=== PATIENT | female | born 1970 | race Caucasian/White ===

== ENCOUNTER → 2017-01-23 | Outpatient (CLI) | payer MEDICARE, OTHER ==
[2017-01-23 11:22] LABS: CH 26.8; HCT 34.3 % (34.0-46.0); HDW 2.72; HGB 10.7 gm/dL (11.4-16.0); Hypochromasia Slight; MCH 27.1 pg (25.0-35.0); MCHC 31.3 g/dL (31.0-37.0); MCV 86.6 fL (80.0-100.0); Mean Platelet Volume 7.6; RBC 3.96 m/uL (3.80-5.40); RDW 13.8 % (11.5-15.5); WBC 9.9 k/uL (3.8-10.6)
[2017-01-23 11:33] LABS: Amorphous Sediment,Urine Rare /hpf; Appearance,Urine Cloudy (Clear); Bacteria,Urine Rare /hpf; Bilirubin,Urine Negative (Negative); Glucose,Urine (UA) Negative (Negative); Ketones,Urine Negative (Negative); Leukocyte Esterase,Urine Negative (Negative); Nitrite,Urine Negative (Negative); PH, Urine 5.5 (5.0-8.0); Particle Count 6182; Protein,Urine Negative (Negative); RBC,Urine 1 /hpf (0-5); Specific Gravity,Urine 1.011 (1.001-1.035); Squamous Epithelial Cell,Urine 8 /hpf (0-4); UA Billing (MACRO vs. MICRO) MICRO; Urobilinogen,Urine <2.0 mg/dL (<2.0); WBC,Urine 3 /hpf (0-5)
[2017-01-23 11:55] LABS: Hemoglobin A1C 7.5 % (4.2-6.1)
[2017-01-23 12:05] LABS: ALT 30 U/L (9-52); AST 18 U/L (14-36); Alkaline Phosphatase 99 U/L (38-126); Anion Gap 9 mmol/L; Blood Urea Nitrogen 23 mg/dL (7-17); Carbon Dioxide 25 mmol/L (22-30); Chloride 108 mmol/L (98-107); Cholesterol 123 mg/dL (<200); Glucose 126 mg/dL (74-99); HDL Cholesterol 39 mg/dL (40-60); Non-African American GFR(MDRD) 23 (>60 ml/min/1.73 sqM); Potassium 4.7 mmol/L (3.5-5.1); Sodium 142 mmol/L (137-145); Total Bilirubin 0.6 mg/dL (0.2-1.3); Total Protein 6.5 g/dL (6.3-8.2); Triglycerides 203 mg/dL (<150)
== END | disposition home or self-care (01) ==
LOC: LABWHC1 10:57
PROVIDERS: ATTEND Family Medicine
DX: Z00.00 Encounter for general adult medical examination without abnormal findings (principal); E11.65 Type 2 diabetes mellitus with hyperglycemia; R89.9 Unspecified abnormal finding in specimens from other organs, systems and tissues
CPT/HCPCS: 36415; 80053; 80061; 81001; 82043; 82306; 83036; 84439; 84443; 84481; 85027

== ENCOUNTER 2017-09-13 10:27 | Inpatient (IN) | payer MEDICARE, OTHER ==
[2017-09-13] MEDS ORDERED: MORPHINE SULFATE 2 MG/ML SYRINGE IVP ONE (10:47)
[2017-09-13] MEDS ORDERED: ONDANSETRON 4 MG/2 ML VIAL IVP STA (10:47)
[2017-09-13] MEDS ORDERED: ACETAMINOPHEN IV (For NPO) 1,000 MG in EMPTY BAG 1 BAG IVPB STA (10:48)
--- NOTE | 2017-09-13 10:51 | ED ---
Abdominal Pain HPI - General Chief Complaint: Abdominal Pain Stated Complaint: Chest/breast pain Time Seen by Provider: 09/13/17 10:39 Source: patient, family Mode of arrival: wheelchair Limitations: no limitations - History of Present Illness Initial Comments: This is a 47-year-old female who presents emergency department for epigastric pain. She states the pain is been there for the last couple of days. She states it started and she thought that she was hungry so she ate some food. She states that the pain then went away however then came back the next day. She states the next day she was unable to eat anything except for some broth or she feels that the pain is epigastric in nature and radiates to bilateral upper quadrants and into her back. She states that she also feels nauseated and vomited once. She denies any diarrhea or constipation. No dysuria or hematuria. She states that she has not had any fevers or chills at home that she knows of. She states that she does not have any sick contacts. No cough or shortness of breath. She denies any other complaints. - Related Data Home Medications Medication Instructions Recorded Confirmed Atorvastatin [Lipitor] 20 mg PO DAILY 01/11/15 09/13/17 Metoprolol Tartrate [Lopressor] 100 mg PO BID 01/11/15 09/13/17 Insulin Aspart [NovoLOG Flexpen] See Protocol SQ ACHS 09/13/17 09/13/17 Lisinopril-Hctz 10-12.5 mg 1 tab PO BID 09/13/17 09/13/17 [Zestoretic 10-12.5] Zolpidem [Ambien] 10 mg PO HS PRN 09/13/17 09/13/17 Allergies Allergy/AdvReac Type Severity Reaction Status Date / Time No Known Allergies Allergy Verified 09/13/17 11:18 Review of Systems ROS Statement: Those systems with pertinent positive or pertinent negative responses have been documented in the HPI. ROS Other: All systems not noted in ROS Statement are negative. Past Medical History Past Medical History: Diabetes Mellitus, Eye Disorder, Hyperlipidemia, Hypertension Additional Past Medical History / Comment(s): BLIND-D/T DM, HAS ONLY 2 % VISION RT EYE-CAN SEE SOME SHAPES AND LIGHT & DARK. HX ABN CERVICAL CELLS. History of Any Multi-Drug Resistant Organisms: None Reported Past Surgical History: Adenoidectomy, Cholecystectomy, Tonsillectomy Additional Past Surgical History / Comment(s): TUMOR & LT OVARY REMOVED. COLD KNIFE CONE Past Anesthesia/Blood Transfusion Reactions: No Reported Reaction Past Psychological History: No Psychological Hx Reported Smoking Status: Current every day smoker Past Alcohol Use History: None Reported Past Drug Use History: None Reported - Past Family History Father Family Medical History: Diabetes Mellitus Mother Family Medical History: Asthma, Pneumonia Additional Family Medical History / Comment(s): "BREATHING PROBLEMS" General Exam - General Exam Comments Initial Comments: Constitutional: Awake alert Appears comfortable Head: Normocephalic atraumatic Eyes: no conjunctival injection No scleral icterus EOMI Neck: No JVD Supple Heart: Regular rate rhythm normal S1-S2 no murmurs Lungs: Clear to auscultation bilaterally No wheezing No rales Abdomen: Soft nondistended tender to palpation epigastrically with minimal voluntary guarding, there is tenderness to palpation in the right upper quadrant and left upper quadrant however greater in the right, no tenderness in lower quadrants. Extremities: Non edematous DP pulses intact Radial pulses intact Neuro: A&Ox3 No focal neurologic deficits Psych: Appropriate mood and affect Limitations: no limitations Course Vital Signs 09/13/17 09/13/17 10:36 12:58 Temperature 100.5 F H Pulse Rate 114 H 92 Respiratory 22 16 Rate Blood Pressure 150/82 144/65 O2 Sat by Pulse 100 96 Oximetry - Reevaluation(s) Reevaluation #1: 09/13/17 11:25 EKG showing normal sinus rhythm with a rate of 91. There is normal ST segment changes or T-wave inversions. QTC is 445. Other intervals normal. No ectopy. Medical Decision Making - Medical Decision Making Is a 47-year-old female who presents emergency department for epigastric pain. She was found to have pancreatitis on computed tomography scan and lab work. She did have a mild fever on arrival however this is consistent with pancreatitis. Do not feel that she has infected pancreatitis. We'll hold off on antibiotics and Dr. Tamez agrees with this. Patient was started on fluids and nothing by mouth. GI was consulted. Patient was updated with the plan and agrees. - Lab Data Result diagrams: 09/13/17 11:15 09/13/17 11:15 Lab Results 09/13/17 09/13/17 09/13/17 Range/Units 11:00 11:00 11:15 WBC 15.2 H (3.8-10.6) k/uL RBC 3.74 L (3.80-5.40) m/uL Hgb 10.5 L (11.4-16.0) gm/dL Hct 32.9 L (34.0-46.0) % MCV 88.2 (80.0-100.0) fL MCH 28.2 (25.0-35.0) pg MCHC 31.9 (31.0-37.0) g/dL RDW 15.3 (11.5-15.5) % Plt Count 288 (150-450) k/uL Neutrophils % 90 % Lymphocytes % 5 % Monocytes % 4 % Eosinophils % 0 % Basophils % 0 % Neutrophils # 13.7 H (1.3-7.7) k/uL Lymphocytes # 0.7 L (1.0-4.8) k/uL Monocytes # 0.7 (0-1.0) k/uL Eosinophils # 0.1 (0-0.7) k/uL Basophils # 0.0 (0-0.2) k/uL PT (9.0-12.0) sec INR (<1.2) APTT (22.0-30.0) sec Sodium (137-145) mmol/L Potassium (3.5-5.1) mmol/L Chloride (98-107) mmol/L Carbon Dioxide (22-30) mmol/L Anion Gap mmol/L BUN (7-17) mg/dL Creatinine (0.52-1.04) mg/dL Est GFR (MDRD) Af Amer (>60 ml/min/1.73 sqM) Est GFR (MDRD) Non-Af (>60 ml/min/1.73 sqM) Glucose (74-99) mg/dL Plasma Lactic Acid Mike (0.7-2.0) mmol/L Calcium (8.4-10.2) mg/dL Total Bilirubin (0.2-1.3) mg/dL AST (14-36) U/L ALT (9-52) U/L Alkaline Phosphatase (38-126) U/L Total Protein (6.3-8.2) g/dL Albumin (3.5-5.0) g/dL Amylase (30-110) U/L Lipase (23-300) U/L Urine Color Yellow Urine Appearance Cloudy H (Clear) Urine pH 6.0 (5.0-8.0) Ur Specific [place] 1.017 (1.001-1.035) Urine Protein 1+ H (Negative) Urine Glucose (UA) 4+ H (Negative) Urine Ketones Negative (Negative) Urine Blood Trace H (Negative) Urine Nitrite Negative (Negative) Urine Bilirubin Negative (Negative) Urine Urobilinogen <2.0 (<2.0) mg/dL Ur Leukocyte Esterase Negative (Negative) Urine RBC 4 (0-5) /hpf Urine WBC 4 (0-5) /hpf Ur Squamous Epith Cells 35 H (0-4) /hpf Urine Mucus Rare H (None) /hpf Urine HCG, Qual Not Detected (Not Detectd) 09/13/17 09/13/17 09/13/17 Range/Units 11:15 11:15 11:15 WBC (3.8-10.6) k/uL RBC (3.80-5.40) m/uL Hgb (11.4-16.0) gm/dL Hct (34.0-46.0) % MCV (80.0-100.0) fL MCH (25.0-35.0) pg MCHC (31.0-37.0) g/dL RDW (11.5-15.5) % Plt Count (150-450) k/uL Neutrophils % % Lymphocytes % % Monocytes % % Eosinophils % % Basophils % % Neutrophils # (1.3-7.7) k/uL Lymphocytes # (1.0-4.8) k/uL Monocytes # (0-1.0) k/uL Eosinophils # (0-0.7) k/uL Basophils # (0-0.2) k/uL PT 10.3 (9.0-12.0) sec INR 1.0 (<1.2) APTT 26.7 (22.0-30.0) sec Sodium 135 L (137-145) mmol/L Potassium 4.0 (3.5-5.1) mmol/L Chloride 104 (98-107) mmol/L Carbon Dioxide 25 (22-30) mmol/L Anion Gap 6 mmol/L BUN 17 (7-17) mg/dL Creatinine 1.80 H (0.52-1.04) mg/dL Est GFR (MDRD) Af Amer 37 (>60 ml/min/1.73 sqM) Est GFR (MDRD) Non-Af 30 (>60 ml/min/1.73 sqM) Glucose 312 H (74-99) mg/dL Plasma Lactic Acid Mike (0.7-2.0) mmol/L Calcium 8.5 (8.4-10.2) mg/dL Total Bilirubin 0.8 (0.2-1.3) mg/dL AST 12 L (14-36) U/L ALT 20 (9-52) U/L Alkaline Phosphatase 82 (38-126) U/L Total Protein 5.5 L (6.3-8.2) g/dL Albumin 2.8 L (3.5-5.0) g/dL Amylase 543 H* (30-110) U/L Lipase 3724 H (23-300) U/L Urine Color Urine Appearance (Clear) Urine pH (5.0-8.0) Ur Specific [place] (1.001-1.035) Urine Protein (Negative) Urine Glucose (UA) (Negative) Urine Ketones (Negative) Urine Blood (Negative) Urine Nitrite (Negative) Urine Bilirubin (Negative) Urine Urobilinogen (<2.0) mg/dL Ur Leukocyte Esterase (Negative) Urine RBC (0-5) /hpf Urine WBC (0-5) /hpf Ur Squamous Epith Cells (0-4) /hpf Urine Mucus (None) /hpf Urine HCG, Qual (Not Detectd) 09/13/17 Range/Units 11:20 WBC (3.8-10.6) k/uL RBC (3.80-5.40) m/uL Hgb (11.4-16.0) gm/dL Hct (34.0-46.0) % MCV (80.0-100.0) fL MCH (25.0-35.0) pg MCHC (31.0-37.0) g/dL RDW (11.5-15.5) % Plt Count (150-450) k/uL Neutrophils % % Lymphocytes % % Monocytes % % Eosinophils % % Basophils % % Neutrophils # (1.3-7.7) k/uL Lymphocytes # (1.0-4.8) k/uL Monocytes # (0-1.0) k/uL Eosinophils # (0-0.7) k/uL Basophils # (0-0.2) k/uL PT (9.0-12.0) sec INR (<1.2) APTT (22.0-30.0) sec Sodium (137-145) mmol/L Potassium (3.5-5.1) mmol/L Chloride (98-107) mmol/L Carbon Dioxide (22-30) mmol/L Anion Gap mmol/L BUN (7-17) mg/dL Creatinine (0.52-1.04) mg/dL Est GFR (MDRD) Af Amer (>60 ml/min/1.73 sqM) Est GFR (MDRD) Non-Af (>60 ml/min/1.73 sqM) Glucose (74-99) mg/dL Plasma Lactic Acid Mike 1.8 (0.7-2.0) mmol/L Calcium (8.4-10.2) mg/dL Total Bilirubin (0.2-1.3) mg/dL AST (14-36) U/L ALT (9-52) U/L Alkaline Phosphatase (38-126) U/L Total Protein (6.3-8.2) g/dL Albumin (3.5-5.0) g/dL Amylase (30-110) U/L Lipase (23-300) U/L Urine Color Urine Appearance (Clear) Urine pH (5.0-8.0) Ur Specific [place] (1.001-1.035) Urine Protein (Negative) Urine Glucose (UA) (Negative) Urine Ketones (Negative) Urine Blood (Negative) Urine Nitrite (Negative) Urine Bilirubin (Negative) Urine Urobilinogen (<2.0) mg/dL Ur Leukocyte Esterase (Negative) Urine RBC (0-5) /hpf Urine WBC (0-5) /hpf Ur Squamous Epith Cells (0-4) /hpf Urine Mucus (None) /hpf Urine HCG, Qual (Not Detectd) Disposition Clinical Impression: Pancreatitis Disposition: ADMITTED IP TO THIS [facility] Condition: Stable
[2017-09-13 11:31] LABS: Basophils % (A) 0 %; Eosinophils # (A) 0.1 k/uL (0-0.7); Eosinophils % (A) 0 %; HCT 32.9 % (34.0-46.0); HGB 10.5 gm/dL (11.4-16.0); Lymphocytes # (A) 0.7 k/uL (1.0-4.8); Lymphocytes % (A) 5 %; MCH 28.2 pg (25.0-35.0); MCHC 31.9 g/dL (31.0-37.0); MCV 88.2 fL (80.0-100.0); Mean Platelet Volume 7.7; Monocytes # (A) 0.7 k/uL (0-1.0); Monocytes % (A) 4 %; Neutrophils # (A) 13.7 k/uL (1.3-7.7); Neutrophils % (A) 90 %; Platelet Count 288 k/uL (150-450); RBC 3.74 m/uL (3.80-5.40); RDW 15.3 % (11.5-15.5); WBC 15.2 k/uL (3.8-10.6)
[2017-09-13] MEDS: SODIUM CHLORIDE 0.9% 500 ML IV SCH ×2 (11:36→12:54)
[2017-09-13 11:39] LABS: Albumin 2.8 g/dL (3.5-5.0); Calcium 8.5 mg/dL (8.4-10.2); Total Bilirubin 0.8 mg/dL (0.2-1.3); Total Protein 5.5 g/dL (6.3-8.2)
[2017-09-13 11:51] LABS: Appearance,Urine Cloudy (Clear); Bilirubin,Urine Negative (Negative); Blood,Urine Trace (Negative); Color,Urine Yellow; Glucose,Urine (UA) 4+ (Negative); Ketones,Urine Negative (Negative); Leukocyte Esterase,Urine Negative (Negative); Mucus,Urine Rare /hpf; Nitrite,Urine Negative (Negative); Protein,Urine 1+ (Negative); RBC,Urine 4 /hpf (0-5); Specific Gravity,Urine 1.017 (1.001-1.035); Squamous Epithelial Cell,Urine 35 /hpf (0-4); Urobilinogen,Urine <2.0 mg/dL (<2.0); WBC,Urine 4 /hpf (0-5)
--- NOTE | 2017-09-13 12:13 | US ---
EXAMINATION TYPE: US abdomen limited DATE OF EXAM: 09/13/2017 COMPARISON: NONE CLINICAL HISTORY: Epigastric, RUQ pain, Eval pancreas and GB. EXAM MEASUREMENTS: Liver Length: 16.6 cm Gallbladder Wall: Surgically absent CBD: 0.7 cm Right Kidney: 11.0 x 4.8 x 4.9 cm Gross morbid obesity. Pancreas: Obscured by bowel gas Liver: Increased attenuation, decreased visualization of vessels suggestive of fatty infiltrate, upp er limits of normal in size, somewhat limited visualization Gallbladder: Surgically absent Evidence for sonographic Pisano's sign: no CBD: wnl Right Kidney: No hydronephrosis or masses seen, limited visualization There is no ascites. IMPRESSION: Postop changes. Correlate for possible hepatic steatosis, limited exam.
[2017-09-13 12:19] LABS: Partial Thromboplastin Time 26.7 sec (22.0-30.0); Prothrombin Time 10.3 sec (9.0-12.0)
[2017-09-13] MEDS ORDERED: RX INFO: IV CONTRAST WAS GIVEN 1 EACH MISC MISCELLANE PRN (12:33)
--- NOTE | 2017-09-13 13:10 | CT ---
EXAMINATION TYPE: CT abdomen pelvis wo con DATE OF EXAM: 09/13/2017 COMPARISON: Correlation ultrasound same day HISTORY: 47-year-old female complains of bilateral upper quadrant pain, nausea, and vomiting. CT DLP: 1240 mGycm. Automated exposure control for dose reduction was used. TECHNIQUE: Contiguous axial scanning of the abdomen and pelvis without IV contrast. Coronal and sagit chava reconstructions performed. FINDINGS: Heart normal size without pericardial effusion. Strandy left basilar atelectasis. No pleural effusion . Noncontrast appearance of the liver, right adrenal gland, and spleen appear within normal limits. Mil d bilateral perinephric stranding likely senescent change. There is moderate to severe peripancreatic fat stranding and edema tracking within the retroperitoneu m. Fat stranding extends anteriorly into the mesentery. Low density 2.1 cm nodule left adrenal gland with attenuation of -6.8 Hounsfield units. Mild atherosclerotic calcifications in the abdominal aorta. No dilated small bowel, free fluid, or free air. No mesenteric or retroperitoneal lymphadenopathy see n. Scattered mild stool. No pericolonic inflammatory change. Bladder partially distended. Uterus and ovaries are visualized. There is a 2.5 cm dominant follicle o r functional cyst in the left ovary. Left ovary is enlarged measuring 5.1 x 3.9 x 5.0 cm for a volume of 49 mL. Pelvic phlebolith. No abnormal fluid collection in the pelvis. Bones: Degenerative disc disease especially L3-L4 and L5-S1. No osseous destructive process. IMPRESSION: 1. Acute pancreatitis. There is moderate to severe surrounding inflammation. No peripancreatic fluid collection seen at this time. 2. Incidental 2.1 cm lipid rich left adrenal adenoma. 3. The left ovary is excessively enlarged with a volume of 49 mL. Pelvic ultrasound can further eval uate. If there is left pelvic pain, Doppler assessment can be added to the ultrasound.
[2017-09-13 13:13] LABS: Amylase 543 U/L (30-110)
[2017-09-13 13:14] LABS: Lipase 3724 U/L (23-300)
[2017-09-13] MEDS ORDERED: ONDANSETRON 4 MG/2 ML VIAL IVP PRN (13:33)
[2017-09-13] MEDS ORDERED: NALOXONE 0.4 MG/ML 1 ML VIAL IV PRN ×2 (13:33→22:23)
[2017-09-13] MEDS ORDERED: ZOLPIDEM 10 MG TAB PO PRN (13:35)
[2017-09-13] MEDS: SODIUM CHLORIDE 0.9% 1,000 ML IV SCH ×3 (14:07→23:18)
[2017-09-13 17:14] LABS: Glucose,Whole Blood 212 mg/dL (75-99)
[2017-09-13] MEDS: MORPHINE SULFATE 2 MG/ML SYRINGE IV PRN ×2 (17:19→23:40)
[2017-09-13] MEDS: LISINOPRIL-HCTZ 10-12.5 MG 1 EACH TAB PO SCH (20:08)
[2017-09-13] MEDS: METOPROLOL TARTRATE 50 MG TAB PO SCH (20:36)
[2017-09-13 20:49] LABS: Glucose,Whole Blood 205 mg/dL (75-99)
[2017-09-13] MEDS ORDERED: MAGNESIUM HYDROXIDE 2,400 MG/10 ML CUP PO PRN (22:23)
[2017-09-13] MEDS ORDERED: MELATONIN 3 MG TABLET PO PRN (22:23)
[2017-09-13] MEDS ORDERED: traMADol 50 MG TAB PO PRN (22:23)
[2017-09-13] MEDS ORDERED: LACTULOSE 20 GM/30 ML CUP PO PRN (22:23)
--- NOTE | 2017-09-13 22:50 | HP ---
HISTORY AND PHYSICAL ADDENDUM TO HISTORY AND PHYSICAL: DATE OF SERVICE: 09/13/2017 Smoking cessation counseling was done with the patient. Patient is keen to stop and will be given a nicotine patch. More than 3 minutes was spent in smoking cessation counseling. MMODL / IJN: [id number] /
--- NOTE | 2017-09-13 23:05 | HP ---
HISTORY AND PHYSICAL DATE OF ADMISSION: 09/13/2017. PRESENTING COMPLAINT: Abdominal pain. HISTORY OF PRESENTING COMPLAINT: This is a 47-year-old pleasant patient of Dr. Gregg. Chronic stable medical conditions include diabetes, hyperlipidemia, hypertension, peripheral neuropathy, right foot ulcer, and patient is nearly blind. For 3 days she has been having increasing epigastric pain, nausea, vomiting, low-grade fever, and decided to come in. The patient was found to have acute pancreatitis in the ER, put on IV fluids, made n.p.o. REVIEW OF SYSTEMS: CONSTITUTIONAL: Tired. Low-grade fever. HEENT: None. RESPIRATORY: None. CARDIOVASCULAR: None. GASTROINTESTINAL: As above. GENITOURINARY: None. MUSCULOSKELETAL: None. DERMATOLOGICAL: Right foot plantar ulcer. HEMATOLOGICAL: None. LYMPHATICS: None. PSYCHIATRY: None. NEUROLOGICAL: Blind numbness and tingling in both feet. Very diminished sensation. PAST MEDICAL HISTORY: 1. Diabetes mellitus. 2. Hypertension. 3. Hyperlipidemia. 4. 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 5. Right foot ulcer. 6. Peripheral neuropathy. PAST SURGICAL HISTORY: 1. Adenoidectomy. 2. Cholecystectomy. 3. Tonsillectomy. 4. Cold knife cone for abnormal cervical cells. SOCIAL HISTORY: Lives with her . Has a talking glucometer, talking scanner and talking cell phone. Does her own medication; feels them by size. Smokes. Used to smoke a pack and a half a day, now down to half a pack a day for 32 years. No alcohol. FAMILY HISTORY: Diabetes. HOME MEDICATIONS: 1. Ambien 10 mg at bedtime p.r.n. 2. Lopressor 100 mg p.o. b.i.d. 3. Zestoretic 05/24.5 one tablet p.o. b.i.d. 4. NovoLog FlexPen. 5. Lipitor 20 mg p.o. daily. ALLERGIES: NONE. PHYSICAL EXAMINATION: Temperature 100.6, pulse 90, respiration 14, blood pressure 173/93, pulse ox 98% on room air. Previous blood pressure 140/73. GENERAL APPEARANCE: Well built. BMI of 41.8. Lying in bed. Tired-appearing. EYES: Pupils equal. Conjunctivae normal. HEENT: Oral cavity dry mucous membrane. NECK: JVD not raised. Mass not palpable. RESPIRATORY: Effort normal. LUNGS: Diminished breath sounds. CARDIOVASCULAR: First and second sounds normal. No edema. ABDOMEN: Soft. Epigastric tenderness. No guarding or rigidity. Liver and spleen not palpable. LYMPHATIC: No lymph node palpable in neck or axillae. PSYCHIATRY: Alert and oriented x3. Mood and affect normal. NEUROLOGICAL: Pupils equal. Cranial nerves grossly intact. Decreased sensation in the feet. DERMATOLOGICAL: Patient has a callus on the ball of the right big toe on the plantar aspect with a central opening. No tenderness. I do not see any drainage. Also it may be noted that patient's eyesight is very poor. INVESTIGATIONS: White count 15.2, hemoglobin 10.5. Potassium 4, BUN 17, creatinine 1.80. The patient's creatinine was 2.30 back in January of last year. The patient's amylase is 543, lipase 3724. ASSESSMENT: 1. Acute idiopathic pancreatitis. 2. Diabetes mellitus, type 2, chronically on insulin, causing severe peripheral neuropathy and diabetic retinopathy. 3. Hyperlipidemia. 4. Essential hypertension. 5. Right foot plantar callus with ulcer; does not appear to be infected at the present time. 6. Morbid obesity with a body mass index of 41.8. 7. Chronic nicotine dependence. Patient is a cigarette smoker. 8. Chronic kidney disease, stage III, from diabetic nephropathy. PLAN: Patient has been made n.p.o. except for ice chips. Getting IV fluids. Amylase and lipase will be closely followed. The patient was counseled against smoking and she understands the importance, will be given a nicotine patch. Home medications will be resumed. Accu-Cheks will be followed. Will have ID look at the patient's foot ulcer. The patient has got good peripheral pulses. The patient should see a dietitian for weight loss measures. MMODL / IJN: [id number] /
[2017-09-13] MEDS: NICOTINE 14MG/24HR PATCH TRANSDERM SCH (23:19)
[2017-09-13] MEDS: LACTATED RINGERS 1,000 ML IV SCH (23:23)
[2017-09-13] MEDS: INSULIN ASPART 100 UNIT/ML 1 ML 10 ML VIAL SQ SCH (23:25)
[2017-09-14] MEDS ORDERED: VANCOMYCIN IV PER PHARMACY 1 EACH MISC MISCELLANE PRN (04:30)
[2017-09-14] MEDS: ACETAMINOPHEN TAB 325 MG TAB PO PRN ×2 (04:43→16:33)
[2017-09-14] MEDS: LACTATED RINGERS 1,000 ML IV SCH ×2 (05:08→14:15)
[2017-09-14] MEDS ORDERED: VANCOMYCIN 2,000 MG in SODIUM CHLORIDE 0.9% 500 ML IVPB SCH ×2 (06:00→21:00)
[2017-09-14] MEDS ORDERED: INSULIN ASPART 100 UNIT/ML 1 ML 10 ML VIAL SQ SCH (07:30)
[2017-09-14] MEDS: INSULIN ASPART 100 UNIT/ML 1 ML 10 ML VIAL SQ SCH ×5 (07:37→22:19)
[2017-09-14 07:52] LABS: Glucose,Whole Blood 135 mg/dL (75-99)
[2017-09-14 07:59] LABS: Basophils % (A) 0 %; Eosinophils # (A) 0.1 k/uL (0-0.7); Eosinophils % (A) 0 %; HCT 31.6 % (34.0-46.0); HGB 10.2 gm/dL (11.4-16.0); Lymphocytes # (A) 1.1 k/uL (1.0-4.8); Lymphocytes % (A) 5 %; MCH 28.5 pg (25.0-35.0); MCHC 32.2 g/dL (31.0-37.0); MCV 88.7 fL (80.0-100.0); Mean Platelet Volume 7.4; Monocytes % (A) 5 %; Neutrophils # (A) 20.1 k/uL (1.3-7.7); Neutrophils % (A) 89 %; Platelet Count 320 k/uL (150-450); RBC 3.56 m/uL (3.80-5.40); RDW 14.6 % (11.5-15.5); WBC 22.5 k/uL (3.8-10.6)
[2017-09-14 08:17] LABS: Calcium 7.8 mg/dL (8.4-10.2); Potassium 3.7 mmol/L (3.5-5.1)
[2017-09-14] MEDS: NICOTINE 14MG/24HR PATCH TRANSDERM SCH (08:53)
[2017-09-14] MEDS: LISINOPRIL-HCTZ 10-12.5 MG 1 EACH TAB PO SCH ×2 (08:54→21:46)
[2017-09-14] MEDS: METOPROLOL TARTRATE 50 MG TAB PO SCH ×2 (08:54→21:46)
[2017-09-14] MEDS: ATORVASTATIN 20 MG TAB PO SCH (08:54)
[2017-09-14] MEDS: MORPHINE SULFATE 2 MG/ML SYRINGE IV PRN ×2 (10:01→21:24)
[2017-09-14] MEDS ORDERED: SODIUM CHLORIDE 0.9% 500 ML IV ONE (10:55)
--- NOTE | 2017-09-14 11:02 | P.CONS ---
History of Present Illness - Reason for Consult Consult date: 09/14/17 Pancreatitis Requesting physician: Domo Tamez - History of Present Illness 47-year-old female with a history of diabetes mellitus, peripheral neuropathy, obesity BMI 41, cholelithiasis status post cholecystectomy several years ago, hyperlipidemia, hypertension, and blindness presents with acute abdominal pain that started Sunday. Pain came on suddenly very sharp in the upper abdomen associated with fever. T-max 101.1. Preliminary blood cultures gram-positive cocci in groups. Additionally she has a right callused foot ulcer with intermittent drainage that developed about a month ago. Receiving intravenous vancomycin. Admission amylase lipase elevated 543 and 3724 respectively. Current amylase is 228. Lipase 631. BUN 17. Creatinine 1.8. Total bilirubin 0.8. AST 12. ALT 20. Alk phos 82. Admission white count 15.2 increase to 22.5 today. He will in 10.2. Platelet 320. Glucose 312 presently 138. No history of pancreatitis. No history of alcoholism. CT abdomen and pelvis without contrast moderate to severe. Pancreatic fat stranding and edema tracking within the peritoneum. No fluid collection seen. Review of Systems Constitutional: Denies fever, chills, sweats, weight gain, or loss. HEENT: Negative for migraines, blindness, earaches, drainage, tinnitus, oral mucosal lesions, dysphagia, or odynophagia. CARDIAC: Negative for chest pain, arrhythmias, or palpitation. RESPIRATORY: Hyperlipidemia. Hypertension. Negative for shortness of breath, hemoptysis, cough, or sputum production. GI: See HPI for pertinent findings. : Negative for hematuria, urgency, frequency, polyuria, or dysuria. GYNc: Denies possibility of . Negative vaginal discharge. MUSCULOSKELETAL: Negative for muscle aches, swelling, arthritis, and arthralgias. NEUROLOGIC: Negative for stroke or TIA. ENDOCRINE: Diabetes mellitus. Peripheral neuropathy. Negative for thyroid problems. SKIN: Negative for rash or itching. PSYCHIATRIC: Negative history for depression and anxiety Past Medical History Past Medical History: Diabetes Mellitus, Eye Disorder, Hyperlipidemia, Hypertension Additional Past Medical History / Comment(s): IDDM type II, blindness d/t diabetes with R eye having only 2% vision, current sore on bottom R foot, bilateral neuropathy hands/feet. History of Any Multi-Drug Resistant Organisms: None Reported Past Surgical History: Adenoidectomy, Cholecystectomy, Tonsillectomy Additional Past Surgical History / Comment(s): BENIGN TUMOR & LT OVARY REMOVED, 01/19/15 COLD KNIFE CONE FOR ABNORMAL CERVICAL CELLS, COLONOSCOPY. Past Anesthesia/Blood Transfusion Reactions: No Reported Reaction Smoking Status: Current every day smoker - Past Family History Father Family Medical History: Diabetes Mellitus Mother Family Medical History: Asthma, Pneumonia Additional Family Medical History / Comment(s): "BREATHING PROBLEMS" Medications and Allergies Home Medications Medication Instructions Recorded Confirmed Type Atorvastatin [Lipitor] 20 mg PO DAILY 01/11/15 09/13/17 History Metoprolol Tartrate [Lopressor] 100 mg PO BID 01/11/15 09/13/17 History Insulin Aspart [NovoLOG Flexpen] See Protocol SQ ACHS 09/13/17 09/13/17 History Lisinopril-Hctz 10-12.5 mg 1 tab PO BID 09/13/17 09/13/17 History [Zestoretic 10-12.5] Zolpidem [Ambien] 10 mg PO HS PRN 09/13/17 09/13/17 History Allergies Allergy/AdvReac Type Severity Reaction Status Date / Time No Known Allergies Allergy Verified 09/13/17 11:18 Physical Exam Vitals: Vital Signs Temp Pulse Pulse Pulse Resp BP BP 09/14/17 07:00 99.8 F H 92 18 136/61 09/14/17 04:24 101.1 F H 91 12 126/70 09/13/17 22:00 100.6 F H 92 14 173/93 09/13/17 19:41 70 14 09/13/17 15:00 99.8 F H 87 16 151/73 09/13/17 14:08 87 16 148/66 09/13/17 12:58 92 16 144/65 Pulse Ox 09/14/17 07:00 92 L 09/14/17 04:24 93 L 09/13/17 22:00 98 09/13/17 19:41 09/13/17 15:00 99 09/13/17 14:08 96 09/13/17 12:58 96 Intake and Output 09/13/17 09/14/17 09/14/17 22:59 06:59 14:59 Other: Voiding Method Toilet # Voids 1 1 Weight 124.738 kg General appearance: The patient is alert, oriented, in no acute distress. HET: Head is normocephalic and atraumatic. Pupils are equal and reactive. Oropharynx is clear without lesions. Neck: Supple without lymphadenopathy. Trachea midline. Heart: S1 S2. Regular rate and rhythm. Lungs: No crackles or wheezes are heard. Abdomen: Soft, tenderness to the bilateral upper abdomen, nondistended with bowel sounds. No peritoneal signs. No palpable organomegaly or masses. Extremities: Right foot callus ulcer to the ball of foot proximally 2 cm in diameter without active drainage center of callused ulcer is opened. Normal skin color and turgor. No cyanosis, rash, ulceration, clubbing, or edema. Radial and pedal pulses are 2/4 bilaterally. Neurological: No focal deficits. Strength and sensation are grossly intact. Results CBC & Chem 7: 09/14/17 07:45 09/14/17 07:45 Labs: Abnormal Lab Results - Last 24 Hours (Table) 09/13/17 09/13/17 09/13/17 Range/Units 11:00 11:15 11:15 WBC 15.2 H (3.8-10.6) k/uL RBC 3.74 L (3.80-5.40) m/uL Hgb 10.5 L (11.4-16.0) gm/dL Hct 32.9 L (34.0-46.0) % Neutrophils # 13.7 H (1.3-7.7) k/uL Lymphocytes # 0.7 L (1.0-4.8) k/uL Sodium 135 L (137-145) mmol/L Carbon Dioxide (22-30) mmol/L Creatinine 1.80 H (0.52-1.04) mg/dL Glucose 312 H (74-99) mg/dL POC Glucose (mg/dL) (75-99) mg/dL Calcium (8.4-10.2) mg/dL AST 12 L (14-36) U/L Total Protein 5.5 L (6.3-8.2) g/dL Albumin 2.8 L (3.5-5.0) g/dL Amylase (30-110) U/L Lipase (23-300) U/L Urine Appearance Cloudy H (Clear) Urine Protein 1+ H (Negative) Urine Glucose (UA) 4+ H (Negative) Urine Blood Trace H (Negative) Ur Squamous Epith Cells 35 H (0-4) /hpf Urine Mucus Rare H (None) /hpf 09/13/17 09/13/17 09/13/17 Range/Units 11:15 16:56 20:45 WBC (3.8-10.6) k/uL RBC (3.80-5.40) m/uL Hgb (11.4-16.0) gm/dL Hct (34.0-46.0) % Neutrophils # (1.3-7.7) k/uL Lymphocytes # (1.0-4.8) k/uL Sodium (137-145) mmol/L Carbon Dioxide (22-30) mmol/L Creatinine (0.52-1.04) mg/dL Glucose (74-99) mg/dL POC Glucose (mg/dL) 212 H 205 H (75-99) mg/dL Calcium (8.4-10.2) mg/dL AST (14-36) U/L Total Protein (6.3-8.2) g/dL Albumin (3.5-5.0) g/dL Amylase 543 H* (30-110) U/L Lipase 3724 H (23-300) U/L Urine Appearance (Clear) Urine Protein (Negative) Urine Glucose (UA) (Negative) Urine Blood (Negative) Ur Squamous Epith Cells (0-4) /hpf Urine Mucus (None) /hpf 09/14/17 09/14/17 09/14/17 Range/Units 07:15 07:45 07:45 WBC 22.5 H (3.8-10.6) k/uL RBC 3.56 L (3.80-5.40) m/uL Hgb 10.2 L (11.4-16.0) gm/dL Hct 31.6 L (34.0-46.0) % Neutrophils # 20.1 H (1.3-7.7) k/uL Lymphocytes # (1.0-4.8) k/uL Sodium (137-145) mmol/L Carbon Dioxide 21 L (22-30) mmol/L Creatinine 1.71 H (0.52-1.04) mg/dL Glucose 138 H (74-99) mg/dL POC Glucose (mg/dL) 135 H (75-99) mg/dL Calcium 7.8 L (8.4-10.2) mg/dL AST (14-36) U/L Total Protein (6.3-8.2) g/dL Albumin (3.5-5.0) g/dL Amylase 228 H (30-110) U/L Lipase 631 H (23-300) U/L Urine Appearance (Clear) Urine Protein (Negative) Urine Glucose (UA) (Negative) Urine Blood (Negative) Ur Squamous Epith Cells (0-4) /hpf Urine Mucus (None) /hpf Microbiology - Last 24 Hours (Table) 09/13/17 11:15 Blood Culture Gram Stain - Preliminary Blood 09/13/17 11:15 Blood Culture - Final Blood 09/13/17 11:00 Urine Culture - Preliminary Urine,Voided CT scan - abdomen: report reviewed (Dr. Arreguin) Assessment and Plan (1) Pancreatitis Narrative/Plan: Sepsis multifactorial secondary to acute pancreatitis etiology unclear with history of cholelithiasis and cholecystectomy. Underlying right foot callus ulceration with bacteremia preliminary blood cultures gram-positive cocci groups. Current Visit: Yes Status: Acute Code(s): K85.90 - ACUTE PANCREATITIS WITHOUT NECROSIS OR INFECTION, UNSP SNOMED Code(s): 55676550 (2) Type 2 diabetes mellitus Current Visit: Yes Status: Acute Code(s): E11.9 - TYPE 2 DIABETES MELLITUS WITHOUT COMPLICATIONS SNOMED Code(s): 79611631 (3) Leukocytosis Current Visit: Yes Status: Acute Code(s): D72.829 - ELEVATED WHITE BLOOD CELL COUNT, UNSPECIFIED SNOMED Code(s): 039008810 (4) Fever Current Visit: Yes Status: Acute Code(s): R50.9 - FEVER, UNSPECIFIED SNOMED Code(s): 153556769 (5) Morbid obesity with BMI of 40.0-44.9, adult Current Visit: Yes Status: Acute Code(s): E66.01 - MORBID (SEVERE) OBESITY DUE TO EXCESS CALORIES; Z68.41 - BODY MASS INDEX (BMI) 40.0-44.9, ADULT SNOMED Code(s): 793369646 Plan: 1. IV hydration; will give normal saline 500 mL bolus 1 and increase maintenance fluids normal saline at 1 50 mL an hour. 2. Nothing by mouth except ice chips and popsicles. 3. Continue with intravenous antibiotics and GI prophylaxis. 4. Daily CBC CMP amylase lipase. Will follow closely with you. Thank you for this kind referral and the opportunity to participate in the care of your patient. This consultation was discussed with Dr. Arreguin. The impression and plan of care have been directed as dictated.
[2017-09-14 11:52] VITALS: BMI 41.8
[2017-09-14 12:00] LABS: Glucose,Whole Blood 149 mg/dL (75-99)
[2017-09-14] MEDS: SODIUM CHLORIDE 0.9% 1,000 ML IV SCH ×2 (13:13→17:46)
[2017-09-14] MEDS: PIPERACILLIN-TAZOBACTAM 3.375 GM in DEXTROSE/WATER 1 50ML.BAG IVPB SCH (16:36)
[2017-09-14 17:07] LABS: Hemoglobin A1C 9.7 % (4.0-6.0)
[2017-09-14 17:14] LABS: Glucose,Whole Blood 258 mg/dL (75-99)
[2017-09-14 20:43] LABS: Glucose,Whole Blood 306 mg/dL (75-99)
--- NOTE | 2017-09-14 22:21 | CONS ---
CONSULTATION DATE OF SERVICE: 09/14/2017 REASON FOR CONSULTATION: 1. Right foot wound. 2. Bacteremia. 3. Pancreatitis. HISTORY OF PRESENT ILLNESS: The patient is a 47-year-old female with a past medical history significant for diabetes, presenting to the ER with a chief complaint of epigastric pain. Pain has been going on for the last few days, mostly in the upper abdominal area, described to be more of a sharp pain, almost 7/10-8/10 and no radiation. The patient did have some associated nausea with it and vomited once, did have some chills at home. Denies any close sick contacts. The patient did have ultrasound of the abdomen which shows post cholecystectomy changes. A CT of abdomen/pelvis was subsequently done which did show evidence of acute pancreatitis, but no fluid collection. The patient has been admitted to the hospital. She also noticed to have a wound on her right foot plantar aspect at the base of the first metatarsal. The patient subsequently started running a fever with a fever of 100.5 on admission with 101 early this morning. She did have blood cultures obtained which have now coming back positive with gram-positive cocci in clusters and chains; hence, ID was consulted for further recommendation regarding antibiotic therapy and management of her right foot ulcer. The patient currently denies having any chest pain or shortness of breath or cough and no diarrhea. No urinary symptoms, any burning or frequency. REVIEW OF SYSTEMS: CONSTITUTIONALLY: Positive for weakness and fever. EYES: No complaint. ENT: No complaint. RESPIRATORY: No complaint. CARDIOVASCULAR: No complaint. GENITOURINARY: No complaint. GASTROINTESTINAL: As per HPI. MUSCULOSKELETAL: As per HPI. INTEGUMENTARY: No complaint. PSYCHOLOGICAL: No complaint. ENDOCRINE: No complaint. NEUROLOGIC: No complaint. 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 PAST SURGICAL HISTORY: Cholecystectomy, tonsillectomy, adenoidectomy and benign tumor of left ovary. SOCIAL HISTORY: The patient is a current everyday smoker. No drinking or drug use. FAMILY HISTORY: Father with history of diabetes. Mother with history of asthma. ALLERGIES: No known drug allergies. MEDICATIONS: Include the patient is currently on: 1. Tylenol. 2. Lipitor. 3. Zestoretic. 4. NovoLog. 5. Lactulose and. 6. Milk of magnesia. 7. Melatonin. 8. Lopressor. 9. Morphine sulfate. 10.Narcan. 11.Zofran and. 12.Vancomycin, Pharmacy to dose. 13.Ultram. 14.Ambien. EXAMINATION: Her blood pressure is 134/74 with a pulse of 90, temperature of 100.5, T-max is 101. She is 98% on room air. General description is a middle-aged female up in the bed in no distress. No tachypnea or accessory muscle of respiration use. HEENT shows slight pallor. No scleral icterus. Oral mucous membranes dry. NECK: Trachea central. No thyromegaly. LUNGS: Unlabored breathing. Clear to auscultation anteriorly. No wheeze or crackle. HEART: S1, S2. Regular rate and rhythm. ABDOMEN: Soft, minimally tender in the upper abdomen. No guarding. No rigidity. No organomegaly. EXTREMITIES: No edema of feet. Right foot on the plantar aspect at the base of the first metatarsal head did show the callus with an open wound, but no significant chronic limited changes were noticed or any drainage. NEUROLOGICAL: Patient is awake, alert, oriented x3. Mood and affect normal. LABS: Hemoglobin is 10.2 with white count 8.5. BUN of 18, creatinine is 1.71. Amylase is 228, lipase is 651. Blood cultures with gram-positive cocci in chains and clusters. CT of abdomen and pelvis per report mentioned above. DIAGNOSTIC IMPRESSION AND PLAN: 1. Patient with sepsis. The patient did have fever of 101 degrees Fahrenheit. The patient did have tachycardia, heart rate of 92, elevated white count meeting criteria for systemic inflammatory response syndrome, , now with evidence of gram- positive bacteremia, source likely abdominal. This patient presented with the abdominal pain and vomiting with evidence of acute pancreatitis and it could be likely an enterococcus related to an abdominal source. The patient did have also the right foot plantar ulcer from a callus; however, the wound does not look significantly infected with no significant redness or any swelling. However, this could be the portal of entry for this bacteremia cannot be entirely excluded. 2. Patient does have renal insufficiency and needs to monitor closely during the administration of the antibiotic. PLAN: 1. Blood cultures repeated to make sure there is no evidence of any persistent bacteremia. 2. Will obtain x-rays of the right foot to be sure there is no evidence of any soft tissue swelling or bony changes. 3. Vancomycin, Pharmacy to dose, target of 15 and watching the kidney function very closely to prevent any nephrotoxicity and Zosyn will be added while waiting for the final ID of this pathogen. 4. Will follow up on the clinical condition and culture to further adjust medication if needed. Thank you for this consultation. Will follow the patient along with you. MMODL / IJN: [id number] /
[2017-09-15] MEDS: PIPERACILLIN-TAZOBACTAM 3.375 GM in DEXTROSE/WATER 1 50ML.BAG IVPB SCH ×3 (00:53→17:33)
[2017-09-15] MEDS: SODIUM CHLORIDE 0.9% 1,000 ML IV SCH ×4 (00:53→22:17)
[2017-09-15 07:38] LABS: Glucose,Whole Blood 126 mg/dL (75-99)
[2017-09-15] MEDS: MORPHINE SULFATE 2 MG/ML SYRINGE IV PRN ×2 (07:46→20:49)
--- NOTE | 2017-09-15 08:08 | PN ---
PROGRESS NOTE DATE OF SERVICE: September 14, 2017. PRESENT COMPLAINT: Abdominal pain. INTERVAL HISTORY: This pleasant lady who is blind with diabetes presented with acute pancreatitis had also on the right foot on the plantar aspect with neuropathy, which she has no pain. Abdominal pain is much better. Patient's significant other is in the room. No nausea, no vomiting and no fever. REVIEW OF SYSTEMS: Done for constitutional, cardiovascular, GI, pulmonary, dermatological; relevant findings. There is no discharge from the ulcer. Current medications are reviewed that include vancomycin and Zosyn. PHYSICAL EXAMINATION: On examination temperature 101.4, pulse 91, respirations 12, blood pressure 136/70, pulse ox 93% on room air. General appearance: Sitting at the edge of the bed, comfortable. Eyes: Pupils equal, conjunctivae normal. HEENT normocephalic. Oral cavity dry mucous membranes. Neck JVD not raised. Mass not palpable. Respiratory effort lungs decreased breath sounds. Cardiovascular 1st 2nd sounds normal. No edema. ABDOMEN: Soft. Minimal tenderness. No guarding, rigidity. Liver and spleen not palpable. Psychiatry: Alert and oriented x3. Mood and affect normal. Extremities: Right foot ball big toe plantar aspect large calluses. Central opening. INVESTIGATIONS: White count 22.5, hemoglobin 10.2, potassium 3.7, creatinine 1.7. Accu-Cheks noted. Amylase 228, lipase 631. ASSESSMENT: 1. Acute idiopathic pancreatitis, some improvement. 2. Right foot plantar callus with ulcer. Given that patient is having a fever and white count, probably this could be a source of infection and need to rule out osteomyelitis. 3. Diabetes mellitus type 2, chronically on insulin causing severe peripheral neuropathy and diabetic retinopathy. 4. Hyperlipidemia. 5. Essential hypertension. 6. Morbid obesity BMI 41.8. 7. Chronic nicotine dependence, patient is a cigarette smoker. 8. Chronic kidney disease stage 3 from diabetic nephropathy. 9. Sepsis could be from osteomyelitis of the foot, needs further workup. PLAN: The patient is on IV Vanco and Zosyn. Pancreatitis is actually getting better. The patient is still spiking fevers. We need to consider osteomyelitis. We will discuss with Dr. Nichols. MMODL / IJN: [id number] /
[2017-09-15] MEDS: ACETAMINOPHEN TAB 325 MG TAB PO PRN (08:15)
[2017-09-15] MEDS: INSULIN ASPART 100 UNIT/ML 1 ML 10 ML VIAL SQ SCH ×4 (08:15→22:18)
[2017-09-15] MEDS: METOPROLOL TARTRATE 50 MG TAB PO SCH ×2 (08:17→20:49)
[2017-09-15] MEDS: LISINOPRIL-HCTZ 10-12.5 MG 1 EACH TAB PO SCH ×2 (08:17→20:49)
[2017-09-15] MEDS: ATORVASTATIN 20 MG TAB PO SCH (08:17)
[2017-09-15] MEDS: NICOTINE 14MG/24HR PATCH TRANSDERM SCH (08:17)
[2017-09-15 08:35] LABS: Basophils % (A) 0 %; Eosinophils # (A) 0.2 k/uL (0-0.7); Eosinophils % (A) 1 %; HCT 29.5 % (34.0-46.0); HGB 9.1 gm/dL (11.4-16.0); Hypochromasia Slight; Lymphocytes # (A) 1.2 k/uL (1.0-4.8); Lymphocytes % (A) 6 %; MCH 28.1 pg (25.0-35.0); MCHC 30.9 g/dL (31.0-37.0); MCV 90.8 fL (80.0-100.0); Mean Platelet Volume 7.4; Monocytes # (A) 0.8 k/uL (0-1.0); Monocytes % (A) 4 %; Neutrophils # (A) 17.4 k/uL (1.3-7.7); Neutrophils % (A) 88 %; Platelet Count 282 k/uL (150-450); RBC 3.25 m/uL (3.80-5.40); RDW 14.5 % (11.5-15.5); WBC 19.9 k/uL (3.8-10.6)
[2017-09-15 08:58] LABS: Albumin 2.5 g/dL (3.5-5.0); Calcium 7.5 mg/dL (8.4-10.2); Potassium 3.5 mmol/L (3.5-5.1); Total Bilirubin 1.6 mg/dL (0.2-1.3); Total Protein 5.2 g/dL (6.3-8.2)
[2017-09-15 09:51] LABS: C Reactive Protein 328.7 mg/L (<10.0)
--- NOTE | 2017-09-15 10:23 | PN ---
PROGRESS NOTE DATE OF SERVICE: 09/15/2017 The patient is a 47-year-old pleasant white female admitted to the hospital with acute onset of epigastric pain associated with nausea, vomiting of 2 days duration. She was noted to have elevated amylase and lipase and acute pancreatitis. She has remote history of gallbladder surgery for gallstones many years ago. CT of the abdomen done in the emergency room did show evidence of changes in the pancreas that showed moderate to severe peripancreatic fat stranding consistent with acute pancreatitis. This morning she says she is feeling better. Epigastric pain is improving. No nausea or vomiting. She had a low-grade fever. PHYSICAL EXAMINATION: On physical examination, appears comfortable, no apparent distress. Vital signs are stable. Blood pressure is 121/65, pulse rate 91, temperature 100.5. HEENT EXAMINATION: Unremarkable. Conjunctivae are pink. Sclerae anicteric. Oral cavity, no lesions. NECK: No JVD or lymph node enlargement. Chest was clear to auscultation. HEART: Regular rate and rhythm. ABDOMEN: Obese. Mild tenderness in the epigastric area. Bowel sounds are positive. EXTREMITIES: No pedal edema. SKIN: No rashes. NEURO: Alert and oriented x3. No focal deficits. IMPRESSION: 1. Acute pancreatitis with elevated amylase and lipase, which are gradually improving. CT of the abdomen and pelvis showed moderate to severe peripancreatic changes consistent acute pancreatitis. 2. Gram-positive bacteremia. Dr. Nichols has been consulted and following the patient closely. Patient started on IV vancomycin. 3. Right foot ulcer. RECOMMENDATION: 1. Await labs from this morning. 2. Continue with clear liquid diet for today. 3. Continue antibiotics as per ID recommendations. Will continue to follow the patient closely during the hospital stay. Thank you for this consultation. MMODL / IJN: [id number] /
[2017-09-15 12:32] LABS: Glucose,Whole Blood 162 mg/dL (75-99)
--- NOTE | 2017-09-15 16:06 | XR ---
EXAMINATION TYPE: XR foot complete RT DATE OF EXAM: 09/14/2017 COMPARISON: NONE HISTORY: Wound plantar aspect first metatarsal TECHNIQUE: Three-view right foot FINDINGS: Mild hallux valgus deformity is present. Osseous structures appear intact. Soft tissue abno rmality with overlying soft tissue swelling is along the ball of the foot. Superficial dorsal soft ti ssue swelling is present. No changes to suggest cortical erosion are identified. Plantar calcaneal he el spur is present. IMPRESSION: 1. No suspicious changes to suggest acute osteomyelitis. 2. Soft tissue injury plantar aspect ball of foot
[2017-09-15 17:14] LABS: Glucose,Whole Blood 210 mg/dL (75-99)
[2017-09-15 21:02] LABS: Glucose,Whole Blood 200 mg/dL (75-99)
--- NOTE | 2017-09-15 22:11 | PN ---
PROGRESS NOTE DATE OF SERVICE: 09/15/2017 PRESENTING COMPLAINT: Abdominal pain. INTERVAL HISTORY: This patient presented with acute pancreatitis, fever, also found to have a wound on the ball of the right big toe. The patient denied having had fevers. It is unclear if that is from pancreatitis or from infection in the joint. Patient has been on antibiotics. Abdominal pain is better. Did not have a bowel movement next. REVIEW OF SYSTEMS: Done for constitutional, cardiovascular, GI, pulmonary, dermatological; relevant findings as above. No nausea, vomiting. CURRENT MEDICATIONS: Reviewed that include: 1. IV Zosyn. 2. IV fluids. EXAMINATION: T-max 100.7 this morning, currently 98.8, pulse 83, respirations 18, blood pressure 129/75, pulse ox 95% on room air. GENERAL APPEARANCE: Sitting at the edge of the bed. HEENT: Normocephalic. Oral cavity normal. EYES: Pupils equal. Conjunctivae normal. NECK: JVD not raised. Mass not palpable. RESPIRATORY: Effort normal. LUNGS: Slightly decreased breath sounds. CARDIOVASCULAR: First and second sounds normal. No edema. ABDOMEN: Soft, nontender. Liver and spleen not palpable. PSYCHIATRY: Alert and oriented x3. Mood and affect normal. EXTREMITIES: Callus with a hole on the ball of the right big toe. INVESTIGATIONS: White count 9.9, hemoglobin 9.1. Potassium 3.5, creatinine 2.03. C-reactive protein 328. Blood cultures growing coag-negative Staph. Had another set of blood cultures growing gram-positive cocci in clusters. ASSESSMENT: 1. Acute idiopathic pancreatitis with clinical biochemical improvement. 2. Right foot callus with an ulcer. The fever, white count, and now blood cultures growing gram-positive cocci with clusters strongly suspicious for osteomyelitis. 3. Diabetes mellitus type 2, chronically on insulin causing severe peripheral neuropathy, diabetic retinopathy. 4. Hyperlipidemia. 5. Essential hypertension. 6. Morbid obesity, BMI of 41.8. 7. Chronic debility dependence. Patient is a cigarette smoker. 8. Chronic kidney disease from diabetic nephropathy. 9. Sepsis could be from osteomyelitis of the metatarsal bone of the right foot. PLAN: At this point, will go ahead and order a bone scan. The patient is being followed by Dr. Nichols from Infectious Disease. Will change the patient to full liquid diet, keep a close on the patient's electrolytes. MMODL / IJN: [id number] /
--- NOTE | 2017-09-15 22:44 | PN ---
PROGRESS NOTE DATE OF SERVICE: 09/15/2017. REASON FOR FOLLOW UP: 1. Acute pancreatitis. 2. Positive blood culture. 3. Right foot wound. INTERVAL HISTORY: The patient is afebrile. She is breathing comfortably. Her abdominal pain has slightly decreased in intensity. The patient denies having any chest pain or shortness of breath, cough and no pain in the right foot area. PHYSICAL EXAMINATION: Blood pressure 129/75 with a pulse of 83, temperature of 98.8. She is 95% on room air. General description is a middle-aged female lying in bed in no distress. Respiratory system: Unlabored breathing, clear to auscultation anteriorly. Heart S1, S2. Regular rate and rhythm. Abdomen soft, minimal tenderness in the epigastric area. No guarding or rigidity. LAB: Hemoglobin is 9.1, white count down to 19.9, BUN of 15, creatinine is slightly up to 2.03. Blood cultures with coagulase-negative Staph. X-rays of the foot with no bony changes. DIAGNOSTIC IMPRESSION/PLAN: 1. Patient with positive blood culture coagulase negative Staph likely contamination. Vancomycin will be discontinued. 2. Patient with acute pancreatitis with significant inflammatory changes. The patient kept on Zosyn while waiting for the culture to finalize as white count showing downward trend. 3. Right foot wound with callus. Keep the area dry. No need for any systemic antibiotic therapy for the same. MMODL / IJN: [id number] /
[2017-09-16] MEDS: SODIUM CHLORIDE 0.9% 1,000 ML IV SCH ×3 (05:57→23:48)
[2017-09-16] MEDS: INSULIN ASPART 100 UNIT/ML 1 ML 10 ML VIAL SQ SCH ×4 (07:25→20:51)
[2017-09-16 07:39] LABS: Glucose,Whole Blood 164 mg/dL (75-99)
[2017-09-16 08:26] LABS: Calcium 7.6 mg/dL (8.4-10.2); Potassium 3.6 mmol/L (3.5-5.1)
[2017-09-16] MEDS: PIPERACILLIN-TAZOBACTAM 3.375 GM in DEXTROSE/WATER 1 50ML.BAG IVPB SCH ×4 (08:35→23:48)
[2017-09-16] MEDS: ATORVASTATIN 20 MG TAB PO SCH (08:35)
[2017-09-16] MEDS: METOPROLOL TARTRATE 50 MG TAB PO SCH ×2 (08:36→20:51)
[2017-09-16] MEDS: NICOTINE 14MG/24HR PATCH TRANSDERM SCH (08:36)
--- NOTE | 2017-09-16 12:13 | PN ---
PROGRESS NOTE Patient is a 47-year-old pleasant white female patient with acute pancreatitis. She is feeling much better today. The abdominal pain has resolved. Nausea and vomiting resolved. She is on a soft diet, tolerating well. PHYSICAL EXAMINATION: Appears comfortable. T-max 99, blood pressure 130/86, pulse rate 82 per minute, and T- max is 99. HEENT: Unremarkable. Conjunctivae pink. Sclerae anicteric. Oral cavity no lesions. Neck: No JVD or lymph node enlargement. Chest was clear to auscultation. HEART: Regular rate and rhythm. The abdomen is soft. Bowel sounds are positive. No organomegaly. EXTREMITIES: No pedal edema. SKIN: No rashes. NEUROLOGIC: Alert and oriented x3. No focal deficits. LABS: Amylase is 32, lipase is 201. Basic metabolic panel shows a BUN of 59, creatinine 2.06. IMPRESSION: 1. Acute pancreatitis being the first episode appears to have resolved with normal serum transaminases, presently on a soft bland diet, tolerating well. 2. Chronic kidney disease. 3. Diabetes mellitus. 4. Right foot ulcer for which Dr. Nichols is following the patient closely. RECOMMENDATIONS: 1. I agree to advance diet as tolerated. 2. The patient was advised to follow up in office in 2-3 weeks following discharge from the hospital. MMODL / IJN: [id number] /
[2017-09-16 12:27] LABS: Glucose,Whole Blood 234 mg/dL (75-99)
[2017-09-16 15:46] VITALS: RESP 16
[2017-09-16 17:44] LABS: Glucose,Whole Blood 268 mg/dL (75-99)
[2017-09-16 20:56] LABS: Glucose,Whole Blood 239 mg/dL (75-99)
--- NOTE | 2017-09-17 07:08 | PN ---
PROGRESS NOTE DATE OF SERVICE: 09/16/2017 REASON FOR FOLLOWUP: 1. Acute pancreatitis. 2. Positive blood culture likely contamination. 3. Right foot plantar ulcer. INTERVAL HISTORY: The patient is afebrile. She is breathing comfortably. Abdominal pain has improved and she was able to tolerate her diet with no nausea, vomiting and no diarrhea. Denies any pain in the right foot area. PHYSICAL EXAMINATION: On examination, blood pressure is 164/78 with a pulse of 86, temperature of 98.3. She is 98% on room air. General description is a middle aged female lying in bed, in no distress. RESPIRATORY SYSTEM: Unlabored breathing, clear to auscultation anteriorly. HEART: S1, S2, regular rate and rhythm. ABDOMEN: Soft, no tenderness. Right foot plantar diabetic wound with a callus, but no significant redness. LABS: BUN of 15, creatinine is 2.06. Blood culture repeat has been negative. DIAGNOSTIC IMPRESSION AND PLAN: 1. Patient with a positive blood culture, Staphylococcus epidermidis, likely contamination repeat negative. Currently . 2. Patient with acute pancreatitis. Patient is on Zosyn, that will be continued. White count was down to 10 yesterday, not repeated today. If the patient continues to improve, will give a short course of oral antibiotic to finish course of therapy. 3. Right diabetic foot ulcer with callus offloading and outpatient debridement of the callus, wound care. Continue supportive care. MMODL / IJN: [id number] /
[2017-09-17 07:10] LABS: Glucose,Whole Blood 183 mg/dL (75-99)
[2017-09-17 07:40] VITALS: BP 140/92; PULSE 77; TEMP 99.2
[2017-09-17] MEDS: ATORVASTATIN 20 MG TAB PO SCH (07:52)
[2017-09-17] MEDS: PIPERACILLIN-TAZOBACTAM 3.375 GM in DEXTROSE/WATER 1 50ML.BAG IVPB SCH (07:52)
[2017-09-17] MEDS: METOPROLOL TARTRATE 50 MG TAB PO SCH (07:52)
[2017-09-17] MEDS: NICOTINE 14MG/24HR PATCH TRANSDERM SCH (07:53)
[2017-09-17] MEDS: INSULIN ASPART 100 UNIT/ML 1 ML 10 ML VIAL SQ SCH (07:53)
--- NOTE | 2017-09-17 11:38 | PN ---
PROGRESS NOTE DATE OF SERVICE: 09/17/2017 REASON FOR FOLLOWUP: 1. Acute pancreatitis with leukocytosis. 2. Patient with right foot ulcer with callus. INTERVAL HISTORY: The patient is afebrile. She is breathing comfortably. Denies significant chest pain or cough. No abdominal pain. No nausea, vomiting, or any pain in the right foot area. PHYSICAL EXAMINATION: On examination, blood pressure 140/92 with a pulse of 77, temperature of 99.2. He is 97% on room air. General description is an elderly female up in the bed, in no distress. RESPIRATORY SYSTEM: Unlabored breathing, clear to auscultation anteriorly. HEART: S1, S2. Regular rate and rhythm. ABDOMEN: Soft, no tenderness. Right foot with callus, but no surrounding redness or drainage. LABS: No new lab is obtained today. DIAGNOSTIC IMPRESSION AND PLAN: 1. Patient with positive blood culture, likely a contaminant. 2. Patient with acute pancreatitis, elevated white count, , will give a short course of oral Augmentin. 3. Right foot callus. Will need followup visit for debridement of this callus and offloading shoes. MMODL / IJN: [id number] /
== END 2017-09-17 12:20 | disposition home or self-care (01) | DRG 871 ==
LOC: EC 10:27 → 4MS4W 13:33
PROVIDERS: ADMIT Hospitalist; ATTEND Hospitalist
DX: A41.9 Sepsis, unspecified organism (principal); K85.00 Idiopathic acute pancreatitis without necrosis or infection; E11.21 Type 2 diabetes mellitus with diabetic nephropathy; E11.42 Type 2 diabetes mellitus with diabetic polyneuropathy; E11.319 Type 2 diabetes mellitus with unspecified diabetic retinopathy without macular edema; N18.3 Chronic kidney disease, stage 3 (moderate); Z68.41 Body mass index [BMI] 40.0-44.9, adult; E11.621 Type 2 diabetes mellitus with foot ulcer; E66.01 Morbid (severe) obesity due to excess calories; E11.22 Type 2 diabetes mellitus with diabetic chronic kidney disease; F17.210 Nicotine dependence, cigarettes, uncomplicated; L97.519 Non-pressure chronic ulcer of other part of right foot with unspecified severity; I12.9 Hypertensive chronic kidney disease with stage 1 through stage 4 chronic kidney disease, or unspecified chronic kidney disease; H54.61 Unqualified visual loss, right eye, normal vision left eye; L84 Corns and callosities; E11.39 Type 2 diabetes mellitus with other diabetic ophthalmic complication; E78.5 Hyperlipidemia, unspecified; Z90.89 Acquired absence of other organs; Z90.49 Acquired absence of other specified parts of digestive tract; Z83.3 Family history of diabetes mellitus; Z82.5 Family history of asthma and other chronic lower respiratory diseases; Z79.4 Long term (current) use of insulin; Z79.899 Other long term (current) drug therapy; Z71.6 Tobacco abuse counseling
CPT/HCPCS: 36415; 74176; 76705; 80048; 80053; 81001; 81025; 82150; 83036; 83605; 83690; 85025; 85610; 85730; 86140; 87040; 87077; 87086; 87186; 93005; 96365; 96375; 99285

== ENCOUNTER 2019-03-30 15:31 | Emergency (ER) | payer MEDICARE, OTHER ==
[2019-03-30 15:37] VITALS: BP 124/70; PULSE 105; RESP 20; TEMP 99.2
--- NOTE | 2019-03-30 16:36 | XR ---
EXAMINATION TYPE: XR foot complete RT DATE OF EXAM: 03/30/2019 COMPARISON: September 14, 2017 HISTORY: Infection TECHNIQUE: 3 views FINDINGS: There is 1 cm ulcer crater at the base of the first MP joint. I see no fracture nor disloca tion. There is mild hammertoe deformity of the second third fourth toes. I see no focal bone destruct ion. There is some soft tissue swelling of the forefoot. IMPRESSION: Ulcer deformity and soft tissue swelling. No fracture. No specific sign of osteomyelitis.
--- NOTE | 2019-03-30 16:42 | ED ---
General Adult HPI - General Chief complaint: Skin/Abscess/Foreign Body Stated complaint: poss infection rt foot Time Seen by Provider: 03/30/19 15:42 Source: patient Mode of arrival: ambulatory Limitations: no limitations - History of Present Illness Initial comments: Patient is a 48-year-old diabetic female presenting to emergency Department with a chief complaint of an ulcer on the foot. Patient reports that she had a callus on her right first MTP joint since 2016 and had no issues with it. Patient reports on Sunday she noticed soreness in the region which is atypical for her due to her diabetic neuropathy. Patient reports she noticed the area was wet but is unaware of the color of the discharge. Patient reports since Sunday the region has become erythematous and edematous. Patient denies discharge from the region. Patient denies foul odor from the region. - Related Data Home Medications Medication Instructions Recorded Confirmed Atorvastatin [Lipitor] 20 mg PO DAILY 01/11/15 09/13/17 Metoprolol Tartrate [Lopressor] 100 mg PO BID 01/11/15 09/13/17 Insulin Aspart [NovoLOG Flexpen] See Protocol SQ ACHS 09/13/17 09/13/17 Lisinopril-Hctz 10-12.5 mg 1 tab PO BID 09/13/17 09/13/17 [Zestoretic 10-12.5] Zolpidem [Ambien] 10 mg PO HS PRN 09/13/17 09/13/17 Previous Rx's Medication Instructions Recorded Amoxicillin/Potassium Clav 1 tab PO Q12HR #14 tab 09/17/17 [Augmentin 875-125 Tablet] Nicotine 14Mg/24Hr Patch [Habitrol] 1 patch TRANSDERM DAILY #30 patch 09/17/17 Cephalexin [Keflex] 500 mg PO Q6HR #40 cap 03/30/19 Allergies Allergy/AdvReac Type Severity Reaction Status Date / Time No Known Allergies Allergy Verified 03/30/19 15:38 Review of Systems ROS Statement: Those systems with pertinent positive or pertinent negative responses have been documented in the HPI. ROS Other: All systems not noted in ROS Statement are negative. 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 History of Any Multi-Drug Resistant Organisms: None Reported Past Surgical History: Adenoidectomy, Cholecystectomy, Tonsillectomy Additional Past Surgical History / Comment(s): BENIGN TUMOR & LT OVARY REMOVED, 01/19/15 COLD KNIFE CONE FOR ABNORMAL CERVICAL CELLS, COLONOSCOPY. Past Anesthesia/Blood Transfusion Reactions: No Reported Reaction Past Psychological History: No Psychological Hx Reported Smoking Status: Current every day smoker - Past Family History Father Family Medical History: Diabetes Mellitus Mother Family Medical History: Asthma, Pneumonia Additional Family Medical History / Comment(s): "BREATHING PROBLEMS" General Exam Limitations: no limitations General appearance: alert, in no apparent distress Head exam: Present: atraumatic, normocephalic, normal inspection Eye exam: Present: normal appearance, PERRL, EOMI Pupils: Present: normal accommodation ENT exam: Present: normal exam, mucous membranes moist, normal external ear exam Neck exam: Present: normal inspection, full ROM Respiratory exam: Present: normal lung sounds bilaterally Cardiovascular Exam: Present: regular rate, normal rhythm, normal heart sounds Extremities exam: Present: other (+2 dorsalis pedis and posterior tibialis bilaterally). Absent: normal inspection (Ulcer measuring approximately 1 cm x 1.5 cm on the plantar aspect of the first right MCP joint. Mild edema and erythema in the region. No discharge or necrosis noted.), full ROM (Limited range of motion of the right hallux), tenderness Back exam: Present: normal inspection, full ROM Neurological exam: Present: alert, oriented X3, other (Decreased sensation in bilateral feet due to diabetic neuropathy) Psychiatric exam: Present: normal affect, normal mood Skin exam: Present: warm, intact, normal color Course Vital Signs 03/30/19 15:34 Temperature 99.2 F Pulse Rate 105 H Respiratory 20 Rate Blood Pressure 124/70 O2 Sat by Pulse 99 Oximetry Medical Decision Making - Medical Decision Making Patient is a 48-year-old female presenting to emergency department with a chief complaint of a diabetic ulcer. Based on physical examination the ulcer appears infected although no necrosis or foul odor was present. No signs of osteolysis on x-ray. This could be treated as an outpatient setting. Patient given Tylenol, Rocephin and Keflex starter pack. Patient will be discharged with a 10 day course of Keflex. The wound was cleaned and a bandage was placed. Patient advised to follow-up with a business process analyst. Strict return parameters were thoroughly discussed the patient was or standing and agreeable. Case discussed physician. Disposition Clinical Impression: Diabetic ulcer of right foot Disposition: HOME SELF-CARE Condition: Stable Instructions (If sedation given, give patient instructions): Abscess (ED) Additional Instructions: Please take prescribed medication as directed. Please follow up with a business process analyst. Please return to emergency department if symptoms worsen. Prescriptions: Cephalexin [Keflex] 500 mg PO Q6HR #40 cap Is patient prescribed a controlled substance at d/c from ED?: No Referrals: Inocente Corea MD [Primary Care Provider] - 1-2 days Time of Disposition: 17:47
[2019-03-30] MEDS ORDERED: cefTRIAXone 1,000 MG VIAL (IM USE) IM STA (17:13)
[2019-03-30] MEDS ORDERED: ACETAMINOPHEN TAB 325 MG TAB PO STA (17:14)
[2019-03-30] MEDS ORDERED: CEPHALEXIN 500MG STARTER PACK 4 CAP BTL PO STA (17:14)
[2019-03-30] MEDS ORDERED: cefTRIAXone IN SWFI 1,000 MG/10 ML SYRINGE IVP STA (17:16)
== END 2019-03-30 17:39 | disposition home or self-care (01) ==
LOC: EC 15:31
DX: E11.621 Type 2 diabetes mellitus with foot ulcer (principal); L97.519 Non-pressure chronic ulcer of other part of right foot with unspecified severity; E11.40 Type 2 diabetes mellitus with diabetic neuropathy, unspecified; E78.5 Hyperlipidemia, unspecified; I10 Essential (primary) hypertension; F17.200 Nicotine dependence, unspecified, uncomplicated; Z79.4 Long term (current) use of insulin; Z79.899 Other long term (current) drug therapy
CPT/HCPCS: 73630; 99283; 96374; J0696

== ENCOUNTER 2019-04-15 16:04 | Inpatient (IN) | payer MEDICARE, OTHER ==
[~2019-04-15 16:04] MED LIST: VANCOMYCIN 2,000 MG in SODIUM CHLORIDE 0.9% 500 ML 500 ML IVPB SCH
[2019-04-15] MEDS ORDERED: SODIUM CHLORIDE 0.9% 500 ML 500 ML IV STA (16:29)
[2019-04-15] MEDS ORDERED: VANCOMYCIN IV PER PHARMACY 1 EACH MISC MISCELLANE PRN (16:29)
[2019-04-15] MEDS ORDERED: SODIUM CHLORIDE 0.9% 1,000 ML IV STA (16:29)
[2019-04-15] MEDS ORDERED: VANCOMYCIN 2,000 MG in SODIUM CHLORIDE 0.9% 500 ML 500 ML IVPB STA (16:32)
--- NOTE | 2019-04-15 16:32 | ED ---
Extremity Problem HPI - General Chief complaint: Wound/Laceration Stated complaint: Infection Time Seen by Provider: 04/15/19 16:10 Source: patient, RN notes reviewed, old records reviewed Mode of arrival: wheelchair Limitations: no limitations - History of Present Illness Initial comments: This is a 49-year-old female the ER for evaluation. Patient does say for evaluation of foot pain of foot odor. Patient has history of diabetes blood sugars have been running mildly high. Patient complaining of significant right foot pain, swelling, occasional drainage. Patient does do her own wound care. She denies any current fevers. No other system complaints currently MD Complaint: extremity pain, extremity swelling, other (R great toe pain and swelling drainage) Location: right, toe (great) History of Same: No Radiation: proximal Severity scale (1-10): 7 (patient has neuropathy) Consistency: constant Improves with: nothing Worsens with: weight bearing, walking Associated Symptoms: denies other symptoms - Related Data Home Medications Medication Instructions Recorded Confirmed Atorvastatin [Lipitor] 20 mg PO DAILY 01/11/15 09/13/17 Metoprolol Tartrate [Lopressor] 100 mg PO BID 01/11/15 09/13/17 Insulin Aspart [NovoLOG Flexpen] See Protocol SQ ACHS 09/13/17 09/13/17 Lisinopril-Hctz 10-12.5 mg 1 tab PO BID 09/13/17 09/13/17 [Zestoretic 10-12.5] Zolpidem [Ambien] 10 mg PO HS PRN 09/13/17 09/13/17 Previous Rx's Medication Instructions Recorded Amoxicillin/Potassium Clav 1 tab PO Q12HR #14 tab 09/17/17 [Augmentin 875-125 Tablet] Nicotine 14Mg/24Hr Patch [Habitrol] 1 patch TRANSDERM DAILY #30 patch 09/17/17 Cephalexin [Keflex] 500 mg PO Q6HR #40 cap 03/30/19 Allergies Allergy/AdvReac Type Severity Reaction Status Date / Time No Known Allergies Allergy Verified 04/15/19 16:14 Review of Systems ROS Statement: Those systems with pertinent positive or pertinent negative responses have been documented in the HPI. ROS Other: All systems not noted in ROS Statement are negative. 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 History of Any Multi-Drug Resistant Organisms: None Reported Past Surgical History: Adenoidectomy, Cholecystectomy, Tonsillectomy Additional Past Surgical History / Comment(s): BENIGN TUMOR & LT OVARY REMOVED, 01/19/15 COLD KNIFE CONE FOR ABNORMAL CERVICAL CELLS, COLONOSCOPY. Past Anesthesia/Blood Transfusion Reactions: No Reported Reaction Past Psychological History: No Psychological Hx Reported Smoking Status: Current every day smoker Past Alcohol Use History: None Reported Past Drug Use History: Marijuana - Past Family History Father Family Medical History: Diabetes Mellitus Mother Family Medical History: Asthma, Pneumonia Additional Family Medical History / Comment(s): "BREATHING PROBLEMS" General Exam - General Exam Comments Initial Comments: Right great toe does show evidence of both dry and wet gangrene, patient does have significant osteomyelitis ulcer lesion to plantar aspect of right Limitations: no limitations General appearance: alert, in no apparent distress Head exam: Present: atraumatic, normocephalic, normal inspection Eye exam: Present: normal appearance, PERRL, EOMI. Absent: scleral icterus, conjunctival injection, periorbital swelling ENT exam: Present: normal exam, mucous membranes moist Neck exam: Present: normal inspection. Absent: tenderness, meningismus, lymphadenopathy Respiratory exam: Present: normal lung sounds bilaterally. Absent: respiratory distress, wheezes, rales, rhonchi, stridor Cardiovascular Exam: Present: normal rhythm, tachycardia, normal heart sounds. Absent: systolic murmur, diastolic murmur, rubs, gallop, clicks GI/Abdominal exam: Present: soft, normal bowel sounds. Absent: distended, tenderness, guarding, rebound, rigid Extremities exam: Present: normal inspection, full ROM, normal capillary refill. Absent: tenderness, pedal edema, joint swelling, calf tenderness Back exam: Present: normal inspection Neurological exam: Present: alert, oriented X3, CN II-XII intact Psychiatric exam: Present: normal affect, normal mood Skin exam: Present: warm, dry, intact, normal color. Absent: rash Course Vital Signs 04/15/19 16:14 Temperature 98.3 F Pulse Rate 118 H Respiratory 20 Rate Blood Pressure 150/83 O2 Sat by Pulse 98 Oximetry - Reevaluation(s) Reevaluation #1: 04/15/19 16:50 Medical records reviewed Reevaluation #2: 04/15/19 16:51 Patient will be started on IV antibiotics, no significant distress no pain no fever. Medical Decision Making - Medical Decision Making 41 female the ER for evaluation of right great toe drainage pain cast. Patient is diabetic ulcer of right foot with evidence of both dry gangrene with gangrene. Possibly myelitis. Patient will be admitted for both vascular consult IV antibiotics - Radiology Data Radiology results: report reviewed (XR foot), image reviewed Disposition Clinical Impression: Type 2 diabetes mellitus, Diabetic ulcer of right foot, Dry gangrene, Cellulitis of great toe, right Disposition: ADMITTED IP TO THIS HOSP Condition: Serious Is patient prescribed a controlled substance at d/c from ED?: No Referrals: Inocente Corea MD [Primary Care Provider] - 1-2 days
[2019-04-15 16:56] LABS: Basophils % (A) 0 %; Eosinophils # (A) 0.2 k/uL (0-0.7); Eosinophils % (A) 2 %; HCT 32.4 % (34.0-46.0); HGB 10.6 gm/dL (11.4-16.0); Lymphocytes # (A) 1.5 k/uL (1.0-4.8); Lymphocytes % (A) 12 %; MCH 27.6 pg (25.0-35.0); MCHC 32.8 g/dL (31.0-37.0); MCV 84.2 fL (80.0-100.0); Mean Platelet Volume 6.8; Monocytes # (A) 0.5 k/uL (0-1.0); Monocytes % (A) 4 %; Neutrophils # (A) 9.9 k/uL (1.3-7.7); Neutrophils % (A) 81 %; Platelet Count 525 k/uL (150-450); RBC 3.85 m/uL (3.80-5.40); RDW 14.4 % (11.5-15.5); WBC 12.3 k/uL (3.8-10.6)
[2019-04-15 17:02] LABS: INR 0.9 (<1.2); Partial Thromboplastin Time 31.8 sec (22.0-30.0); Prothrombin Time 10.1 sec (9.0-12.0)
[2019-04-15 17:03] LABS: Albumin 3.2 g/dL (3.5-5.0); Calcium 8.9 mg/dL (8.4-10.2); Magnesium 1.8 mg/dL (1.6-2.3); Potassium 3.7 mmol/L (3.5-5.1); Total Bilirubin 0.5 mg/dL (0.2-1.3); Total Protein 6.7 g/dL (6.3-8.2)
--- NOTE | 2019-04-15 17:53 | XR ---
PROCEDURE: XR foot complete RT - 3V DATE AND TIME: 04/15/2019 5:00 PM CLINICAL INDICATION: PHH; Pain TECHNIQUE: 3 views COMPARISON: Radiographs 03/30/2019 FINDINGS: There is extensive soft tissue swelling in the medial plantar soft tissues of the forefoot and extending to involve the midfoot. The previously seen plantar also deformity over the first MTP j oint appears mildly more prominent. There is no definite echographic evidence of osteomyelitis. IMPRESSION: Positive for radiographic evidence of extensive soft tissue infection, increased compared to the prior study.
[2019-04-15] MEDS ORDERED: PIPERACILLIN-TAZOBACTAM 3.375 GM in SODIUM CHLORIDE 0.9% 100 ML IVPB STA (18:08)
[2019-04-15 21:17] LABS: Glucose,Whole Blood 272 mg/dL (75-99)
[2019-04-15] MEDS: INSULIN ASPART (NovoLOG) 100 UNIT/ML VIAL SQ SCH (21:53)
[2019-04-16] MEDS: PIPERACILLIN-TAZOBACTAM 3.375 GM in SODIUM CHLORIDE 0.9% 100 ML IVPB SCH ×3 (04:16→23:50)
[2019-04-16 06:10] LABS: Glucose,Whole Blood 126 mg/dL (75-99)
[2019-04-16] MEDS: INSULIN ASPART (NovoLOG) 100 UNIT/ML VIAL SQ SCH ×4 (06:15→20:55)
[2019-04-16 07:23] LABS: Calcium 8.5 mg/dL (8.4-10.2); Potassium 4.1 mmol/L (3.5-5.1)
[2019-04-16 07:42] LABS: Basophils % (A) 0 %; Eosinophils # (A) 0.3 k/uL (0-0.7); Eosinophils % (A) 2 %; HGB 9.8 gm/dL (11.4-16.0); Lymphocytes # (A) 1.4 k/uL (1.0-4.8); Lymphocytes % (A) 12 %; MCH 27.8 pg (25.0-35.0); MCHC 32.7 g/dL (31.0-37.0); MCV 85.1 fL (80.0-100.0); Mean Platelet Volume 7.3; Monocytes # (A) 0.4 k/uL (0-1.0); Monocytes % (A) 4 %; Neutrophils # (A) 9.4 k/uL (1.3-7.7); Neutrophils % (A) 80 %; Platelet Count 479 k/uL (150-450); RBC 3.52 m/uL (3.80-5.40); RDW 14.6 % (11.5-15.5); WBC 11.7 k/uL (3.8-10.6)
[2019-04-16] MEDS: amLODIPine 2.5 MG TAB PO SCH (08:45)
[2019-04-16] MEDS: ATORVASTATIN 20 MG TAB PO SCH (08:45)
[2019-04-16] MEDS: METOPROLOL SUCCINATE (ER) 100 MG TAB.ER.24H PO SCH (08:45)
[2019-04-16] MEDS: LISINOPRIL-HCTZ 10-12.5 MG 1 EACH TAB PO SCH ×2 (08:45→20:55)
[2019-04-16] MEDS: ENOXAPARIN 40 MG/0.4 ML SYRINGE SQ SCH (08:52)
--- NOTE | 2019-04-16 09:04 | P.CON ---
Consult Note - . Consult date: 04/16/19 Assessment/Plan:: This is a 49-year-old pleasant female who presented to the emergency room for evaluation of foot pain and odor. Patient has past medical history of diabetes. Patient states that lately her blood sugars have been running mildly high. She has noted increased pain to the right foot with swelling and occasional drainage. Patient also states that she has had a strong odor from the foot. Patient has been performing wound care utilizing peroxide and soap and water daily. Patient essentially noticed the ulceration on 03/30 when she presented to the emergency room and was found to have a blister and redness to the right great toe. Patient was placed on antibiotics at that time. Patient has since been completed antibiotics and has noticed that the area has gotten larger and the odor has increased. Patient is legally blind and did not realize that the toe was discolored or that the ulcerations have worsened. Patient has history of neuropathy. She rates the pain 7 out of 10 and it worsens with walking and weightbearing. Past medical history significant for diabetes, blindness related to diabetes, hyperlipidemia, hypertension. Patient is a every day smoker smoking approximately half a pack per day. Review Of Systems: Constitutional: Reports pain to the right foot No fever, no chills, no night sweats. No weight change. No weakness, fatigue or lethargy. No daytime sleepiness. Integumentary: Reports ulceration to right foot, reports order reports drainage No rash or pruritus. No unusual bruising. No change in hair or nails. General Appearance: Alert, cooperative, no distress, appears stated age. Skin: Full thickness ulceration to right great toe plantar aspect extending to first and second digit webbing. Full thickness ulceration to right forefoot plantar aspect. Positive exudate and odor. Right great toe gangrenous with eschar present. Neurologic: Alert oriented x3 cranial nerves II through XII intact, no motor deficit, abnormal balance or gait Assessment/plan: 1. Gangrene of right great toe. Awaiting vascular recommendations. 2. Diabetic foot ulcer with fatty layer exposure. Consult vascular, will wait for vascular recommendations of right great toe prior to applying dressing. Right plantar ulceration apply Santyl daily. Recommend appointment with wound care center upon discharge. 3. Nicotine dependence. Smoking cessation discussed with patient. Thank you for the consultation. Any questions please consult the wound care center. DNP note has been reviewed and discussed with Dr. Tim and the impression and plan of care has been directed as dictated.
--- NOTE | 2019-04-16 09:21 | P.GSCN ---
History of Present Illness Consult date: 04/16/19 History of present illness: The patient is a 49-year-old female with a past medical history including hypertension, diabetes, hyperlipidemia who presented to the ER for evaluation of her right foot discoloration and odor. She states back on March 30 she began having issue with her right great toe, at that time it was thought she had a blood blister. This started to drain following and has progressively gotten worse. She says in the past day or so it is continued to turn black. She states that it stinks. She denies any pain, she has neuropathy and doesn't alena lly feel much in her toes or legs to begin with. She denies any fevers, chills, nausea or vomiting otherwise. Review of Systems 14 point review of systems performed, pertinent positives and negatives per the HPI Past Medical History Past Medical History: Diabetes Mellitus, Eye Disorder, Hyperlipidemia, Hypertension Additional Past Medical History / Comment(s): IDDM type II, blindness d/t diabetes with R eye having only 2% vision, current sore on bottom R foot, bilateral neuropathy hands/feet. History of Any Multi-Drug Resistant Organisms: None Reported Past Surgical History: Adenoidectomy, Cholecystectomy, Tonsillectomy Additional Past Surgical History / Comment(s): BENIGN TUMOR & LT OVARY REMOVED, 01/19/15 COLD KNIFE CONE FOR ABNORMAL CERVICAL CELLS, COLONOSCOPY. Past Anesthesia/Blood Transfusion Reactions: No Reported Reaction Past Psychological History: No Psychological Hx Reported Smoking Status: Current every day smoker Past Alcohol Use History: None Reported Past Drug Use History: Marijuana - Past Family History Father Family Medical History: Diabetes Mellitus Mother Family Medical History: Asthma, Pneumonia Additional Family Medical History / Comment(s): "BREATHING PROBLEMS" Medications and Allergies Home Medications Medication Instructions Recorded Confirmed Type Atorvastatin [Lipitor] 20 mg PO DAILY 01/11/15 04/15/19 History Insulin Aspart [NovoLOG Flexpen] See Protocol SQ AC-TID 09/13/17 04/15/19 History Lisinopril-Hctz 10-12.5 mg 1 tab PO BID 09/13/17 04/15/19 History [Zestoretic 10-12.5] Dulaglutide [Trulicity] 0.75 mg SQ TH 04/15/19 04/15/19 History Metoprolol Succinate [Toprol XL] 100 mg PO DAILY 04/15/19 04/15/19 History amLODIPine [Norvasc] 2.5 mg PO DAILY 04/15/19 04/15/19 History Allergies Allergy/AdvReac Type Severity Reaction Status Date / Time No Known Allergies Allergy Verified 04/15/19 16:51 Surgical - Exam Vital Signs Temp Pulse Resp BP Pulse Ox 98.3 F 118 H 20 150/83 98 04/15/19 16:14 04/15/19 16:14 04/15/19 16:14 04/15/19 16:14 04/15/19 16:14 - General well developed, well nourished - Eyes PERRL, normal ocular movement - ENT normal pinna, normal nares, normal mucosa - Neck no masses, trachea midline - Respiratory normal expansion, normal respiratory effort - Cardiovascular Rhythm: regular - Abdomen Abdomen: soft, tender - Integumentary no rash - Neurologic normal coordination - Musculoskeletal normal gait - Psychiatric oriented to time, oriented to person Vascular: Bilateral palpable radial, femoral, popliteal pulses. Left lower showed a strongly palpable dorsalis pedis and posterior tibial, right lower extremity with edema, weakly palpable dorsalis pedis. Multiphasic flow on Doppler DP and PT bilateral. The right great toe with dry gangrene. At the area of the proximal phalanx there is an ulceration also with fibrinous exudate. At the plantar portion of the great toe, there is a diabetic foot ulcer with significant callus surrounding Results Lower extremity x-ray reviewed. No overt evidence of osteomyelitis - Labs 04/16/19 06:13 04/16/19 06:13 Abnormal Lab Results - Last 24 Hours (Table) 04/15/19 04/15/19 04/15/19 Range/Units 16:40 16:40 16:40 WBC 12.3 H (3.8-10.6) k/uL RBC (3.80-5.40) m/uL Hgb 10.6 L (11.4-16.0) gm/dL Hct 32.4 L (34.0-46.0) % Plt Count 525 H (150-450) k/uL Neutrophils # 9.9 H (1.3-7.7) k/uL APTT 31.8 H (22.0-30.0) sec Sodium 136 L (137-145) mmol/L Chloride (98-107) mmol/L BUN 22 H (7-17) mg/dL Creatinine 2.18 H (0.52-1.04) mg/dL Glucose 327 H (74-99) mg/dL POC Glucose (mg/dL) (75-99) mg/dL AST 13 L (14-36) U/L Troponin I (0.000-0.034) ng/mL Albumin 3.2 L (3.5-5.0) g/dL 04/15/19 04/15/19 04/16/19 Range/Units 16:40 21:16 06:09 WBC (3.8-10.6) k/uL RBC (3.80-5.40) m/uL Hgb (11.4-16.0) gm/dL Hct (34.0-46.0) % Plt Count (150-450) k/uL Neutrophils # (1.3-7.7) k/uL APTT (22.0-30.0) sec Sodium (137-145) mmol/L Chloride (98-107) mmol/L BUN (7-17) mg/dL Creatinine (0.52-1.04) mg/dL Glucose (74-99) mg/dL POC Glucose (mg/dL) 272 H 126 H (75-99) mg/dL AST (14-36) U/L Troponin I 0.085 H* (0.000-0.034) ng/mL Albumin (3.5-5.0) g/dL 04/16/19 04/16/19 Range/Units 06:13 06:13 WBC 11.7 H (3.8-10.6) k/uL RBC 3.52 L (3.80-5.40) m/uL Hgb 9.8 L (11.4-16.0) gm/dL Hct 30.0 L (34.0-46.0) % Plt Count 479 H (150-450) k/uL Neutrophils # 9.4 H (1.3-7.7) k/uL APTT (22.0-30.0) sec Sodium (137-145) mmol/L Chloride 110 H (98-107) mmol/L BUN 20 H (7-17) mg/dL Creatinine 2.01 H (0.52-1.04) mg/dL Glucose 123 H (74-99) mg/dL POC Glucose (mg/dL) (75-99) mg/dL AST (14-36) U/L Troponin I (0.000-0.034) ng/mL Albumin (3.5-5.0) g/dL Diabetes panel 04/15/19 04/16/19 Range/Units 16:40 06:13 Sodium 136 L 139 (137-145) mmol/L Potassium 3.7 4.1 (3.5-5.1) mmol/L Chloride 103 110 H (98-107) mmol/L Carbon Dioxide 22 24 (22-30) mmol/L BUN 22 H 20 H (7-17) mg/dL Creatinine 2.18 H 2.01 H (0.52-1.04) mg/dL Glucose 327 H 123 H (74-99) mg/dL Calcium 8.9 8.5 (8.4-10.2) mg/dL AST 13 L (14-36) U/L ALT 14 (9-52) U/L Alkaline Phosphatase 110 (38-126) U/L Total Protein 6.7 (6.3-8.2) g/dL Albumin 3.2 L (3.5-5.0) g/dL Calcium panel 04/15/19 04/16/19 Range/Units 16:40 06:13 Calcium 8.9 8.5 (8.4-10.2) mg/dL Phosphorus 3.0 (2.5-4.5) mg/dL Albumin 3.2 L (3.5-5.0) g/dL Pituitary panel 04/15/19 04/16/19 Range/Units 16:40 06:13 Sodium 136 L 139 (137-145) mmol/L Potassium 3.7 4.1 (3.5-5.1) mmol/L Chloride 103 110 H (98-107) mmol/L Carbon Dioxide 22 24 (22-30) mmol/L BUN 22 H 20 H (7-17) mg/dL Creatinine 2.18 H 2.01 H (0.52-1.04) mg/dL Glucose 327 H 123 H (74-99) mg/dL Calcium 8.9 8.5 (8.4-10.2) mg/dL Adrenal panel 04/15/19 04/16/19 Range/Units 16:40 06:13 Sodium 136 L 139 (137-145) mmol/L Potassium 3.7 4.1 (3.5-5.1) mmol/L Chloride 103 110 H (98-107) mmol/L Carbon Dioxide 22 24 (22-30) mmol/L BUN 22 H 20 H (7-17) mg/dL Creatinine 2.18 H 2.01 H (0.52-1.04) mg/dL Glucose 327 H 123 H (74-99) mg/dL Calcium 8.9 8.5 (8.4-10.2) mg/dL Total Bilirubin 0.5 (0.2-1.3) mg/dL AST 13 L (14-36) U/L ALT 14 (9-52) U/L Alkaline Phosphatase 110 (38-126) U/L Total Protein 6.7 (6.3-8.2) g/dL Albumin 3.2 L (3.5-5.0) g/dL Assessment and Plan Assessment: #1 right great toe gangrene with surrounding cellulitis and ulceration #2 right plantar diabetic foot ulcer #3 diabetes #4 diabetic neuropathy #5 diabetic retinopathy with blindness #6 Hypertension Plan: Given the appearance of the great toe it will need amputation. We will schedule this in the next 1-2 days. Currently evidence of palpable pulses bilaterally. Hopeful for enough blood flow to heal the wound. It was discussed with the patient that the wound may be left open due to the amount of tissue needed for amputation to excise the entirety of the ulcer. That if that is the case we will utilize a wound VAC. Wound care has been seeing the patient. Continue antibiotics as ordered. Continue blood sugar control. Long conversation had with the patient regarding tobacco cessation and increased risk of worsening arterial disease and need for amputation some the future. She states she has no plans on quitting at this time. Thank you for allowing me to participate in the care of this patient.
--- NOTE | 2019-04-16 09:30 | P.HPIM ---
History of Present Illness H&P Date: 04/16/19 Sharmaine Christine is a 41-year-old female with past medical history significant for type 2 diabetes with neuropathy, hypertension, hyperlipidemia who presents to the hospital with a 3 week history of right great toe odor and dark dusky color with drainage. She states she was diagnosed with a diabetic ulcer on the pad of her R foot for the past year which she had been managing conservatively. Pt has severe diabetic neuropathy and can barely feel her feet. Approximately 3 weeks ago she felt like there was something under her R great toe so came to the emergency department and was discharged on antibiotics. After starting antibiotics she began to notice drainage and over the last 3 weeks her toe began to turn black with foul smell. She denies fevers or chills. Her last A1c was 9.5. She endorses severe diabetic retinopathy and is legally blind. Pt is a current every day smoker. She has strong family history of vascular disease including heart attacks and strokes on both sides. In the ED her vitals were stable, WBC 12.3, creatinine 2.2, BNP 1400. Review of Systems All systems: negative Constitutional: Reports malaise, Denies chills, Denies fever Eyes: bilateral blurred vision, bilateral decreased vision, denies pain Ears, nose, mouth and throat: Denies headache, Denies sore throat Cardiovascular: Denies chest pain, Denies shortness of breath Respiratory: Denies cough Gastrointestinal: Denies abdominal pain, Denies diarrhea, Denies nausea, Denies vomiting Genitourinary: Denies dysuria, Denies hematuria Musculoskeletal: Reports leg numbness/tingling, Reports muscle weakness, Denies myalgias Integumentary: Reports color changes, Reports foot/leg ulcers, Reports sores, Reports wounds, Denies pruritus, Denies rash Neurological: Denies numbness, Denies weakness Psychiatric: Denies anxiety, Denies depression Endocrine: Reports fatigue, Denies weight change Past Medical History Past Medical History: Diabetes Mellitus, Eye Disorder, Hyperlipidemia, Hypertension Additional Past Medical History / Comment(s): IDDM type II, blindness d/t diabetes with R eye having only 2% vision, current sore on bottom R foot, bilateral neuropathy hands/feet. History of Any Multi-Drug Resistant Organisms: None Reported Past Surgical History: Adenoidectomy, Cholecystectomy, Tonsillectomy Additional Past Surgical History / Comment(s): BENIGN TUMOR & LT OVARY REMOVED, 01/19/15 COLD KNIFE CONE FOR ABNORMAL CERVICAL CELLS, COLONOSCOPY. Past Anesthesia/Blood Transfusion Reactions: No Reported Reaction Past Psychological History: No Psychological Hx Reported Smoking Status: Current every day smoker Past Alcohol Use History: None Reported Past Drug Use History: Marijuana - Past Family History Father Family Medical History: Diabetes Mellitus Mother Family Medical History: Asthma, Pneumonia Additional Family Medical History / Comment(s): "BREATHING PROBLEMS" Medications and Allergies Home Medications Medication Instructions Recorded Confirmed Type Atorvastatin [Lipitor] 20 mg PO DAILY 01/11/15 04/15/19 History Insulin Aspart [NovoLOG Flexpen] See Protocol SQ AC-TID 09/13/17 04/15/19 History Lisinopril-Hctz 10-12.5 mg 1 tab PO BID 09/13/17 04/15/19 History [Zestoretic 10-12.5] Dulaglutide [Trulicity] 0.75 mg SQ TH 04/15/19 04/15/19 History Metoprolol Succinate [Toprol XL] 100 mg PO DAILY 04/15/19 04/15/19 History amLODIPine [Norvasc] 2.5 mg PO DAILY 04/15/19 04/15/19 History Allergies Allergy/AdvReac Type Severity Reaction Status Date / Time No Known Allergies Allergy Verified 04/15/19 16:51 Physical Exam Vitals: Vital Signs Temp Pulse Pulse Resp BP BP Pulse Ox 04/16/19 08:00 92 16 04/16/19 07:20 98.8 F 89 16 117/63 93 L 04/16/19 04:32 98.8 F 92 16 111/59 97 04/16/19 00:00 87 16 04/15/19 23:00 98.9 F 87 16 125/64 95 04/15/19 21:45 97 04/15/19 18:06 89 16 146/77 98 04/15/19 17:11 9.0 F L 97 17 141/77 100 04/15/19 16:14 98.3 F 118 H 20 150/83 98 Intake and Output 04/15/19 04/16/19 04/16/19 22:59 06:59 14:59 Intake Total 120 1979 Balance 120 1979 Intake: IV 10 Invasive Line 1 10 Intake, IV Titration 1500 Amount Piperacillin-Tazobactam 3 200 .375 gm In Sodium Chloride 0.9% 100 ml @ 25 mls/hr IVPB Q8H E[facility] Rx#: [id number] Sodium Chloride 0.9% 1, 800 000 ml @ 100 mls/hr IV . Q10H STA Rx#:[id number] Vancomycin 2,000 mg In 500 Sodium Chloride 0.9% 500 ml 500 ml @ 167 mls/hr IVPB Q24H ELE[facility] Rx#: [id number] Oral 120 480 600 Other: Voiding Method Toilet Toilet # Voids 2 Weight 120.202 kg General: non toxic, no distress, appears at stated age Derm: warm, dry. R great toe with necrotic tissue extending to joint. Pad of R foot with diabetic ulcer Head: atraumatic, normocephalic, symmetric Eyes: EOMI, no lid lag, anicteric sclera Mouth: no lip lesion, mucus membranes moist Cardiovascular: S1S2 reg, no murmur, diminished posterior tibial pulse bilateral Lungs: CTA bilateral, no rhonchi, no rales , no accessory muscle use Abdominal: soft, nontender to palpation, no guarding, no appreciable organomegaly Ext: no gross muscle atrophy, 1+ edema, no contractures Neuro: CN II-XI grossly intact, no focal neuro deficits Psych: Alert, oriented, appropriate affect Results CBC & Chem 7: 04/16/19 06:13 04/16/19 06:13 Labs: Abnormal Lab Results - Last 24 Hours (Table) 04/15/19 04/15/19 04/15/19 Range/Units 16:40 16:40 16:40 WBC 12.3 H (3.8-10.6) k/uL RBC (3.80-5.40) m/uL Hgb 10.6 L (11.4-16.0) gm/dL Hct 32.4 L (34.0-46.0) % Plt Count 525 H (150-450) k/uL Neutrophils # 9.9 H (1.3-7.7) k/uL APTT 31.8 H (22.0-30.0) sec Sodium 136 L (137-145) mmol/L Chloride (98-107) mmol/L BUN 22 H (7-17) mg/dL Creatinine 2.18 H (0.52-1.04) mg/dL Glucose 327 H (74-99) mg/dL POC Glucose (mg/dL) (75-99) mg/dL AST 13 L (14-36) U/L Troponin I (0.000-0.034) ng/mL Albumin 3.2 L (3.5-5.0) g/dL 04/15/19 04/15/19 04/16/19 Range/Units 16:40 21:16 06:09 WBC (3.8-10.6) k/uL RBC (3.80-5.40) m/uL Hgb (11.4-16.0) gm/dL Hct (34.0-46.0) % Plt Count (150-450) k/uL Neutrophils # (1.3-7.7) k/uL APTT (22.0-30.0) sec Sodium (137-145) mmol/L Chloride (98-107) mmol/L BUN (7-17) mg/dL Creatinine (0.52-1.04) mg/dL Glucose (74-99) mg/dL POC Glucose (mg/dL) 272 H 126 H (75-99) mg/dL AST (14-36) U/L Troponin I 0.085 H* (0.000-0.034) ng/mL Albumin (3.5-5.0) g/dL 04/16/19 04/16/19 Range/Units 06:13 06:13 WBC 11.7 H (3.8-10.6) k/uL RBC 3.52 L (3.80-5.40) m/uL Hgb 9.8 L (11.4-16.0) gm/dL Hct 30.0 L (34.0-46.0) % Plt Count 479 H (150-450) k/uL Neutrophils # 9.4 H (1.3-7.7) k/uL APTT (22.0-30.0) sec Sodium (137-145) mmol/L Chloride 110 H (98-107) mmol/L BUN 20 H (7-17) mg/dL Creatinine 2.01 H (0.52-1.04) mg/dL Glucose 123 H (74-99) mg/dL POC Glucose (mg/dL) (75-99) mg/dL AST (14-36) U/L Troponin I (0.000-0.034) ng/mL Albumin (3.5-5.0) g/dL Thrombosis Risk Factor Assmnt - Choose All That Apply Any of the Below Risk Factors Present?: Yes Each Factor Represents 1 point: Age 41-60 years, Obesity (BMI >25) Other Risk Factors: No Other congenital or acquired thrombophilia - If yes, enter type in comment: No Thrombosis Risk Factor Assessment Total Risk Factor Score: 2 Thrombosis Risk Factor Assessment Level: Low Risk Assessment and Plan (1) Cellulitis of great toe, right Current Visit: Yes Status: Acute Code(s): L03.031 - CELLULITIS OF RIGHT TOE SNOMED Code(s): 34948930 (2) Diabetic ulcer of right foot Current Visit: Yes Status: Acute Code(s): E11.621 - TYPE 2 DIABETES MELLITUS WITH FOOT ULCER; L97.519 - NON-PRS CHRONIC ULCER OTH PRT RIGHT FOOT W UNSP SEVERITY SNOMED Code(s): 319175170 (3) Dry gangrene Current Visit: Yes Status: Acute Code(s): I96 - GANGRENE, NOT ELSEWHERE CLASSIFIED SNOMED Code(s): 968282096 (4) Type 2 diabetes mellitus Current Visit: Yes Status: Acute Code(s): E11.9 - TYPE 2 DIABETES MELLITUS WITHOUT COMPLICATIONS SNOMED Code(s): 85063531 (5) Morbid obesity with BMI of 40.0-44.9, adult Current Visit: No Status: Acute Code(s): E66.01 - MORBID (SEVERE) OBESITY DUE TO EXCESS CALORIES; Z68.41 - BODY MASS INDEX (BMI) 40.0-44.9, ADULT SNOMED Code(s): 991595000 Plan: 1. Gangrene. Diabetic ulcer right great toe. Vascular surgery consulted, anticipate amputation. Continue Zosyn and vancomycin. Local wound care 2. Type 2 diabetes. Accu-Chek and sliding scale insulin 3. Hypertension. Continue Norvasc, lisinopril and HCTZ 4. Hyperlipidemia. Continue statin
[2019-04-16] MEDS: COLLAGENASE 250 UNIT/GM OINTMENT 30 GM TUBE TOPICAL SCH (11:16)
[2019-04-16 12:02] VITALS: BMI 40.3
[2019-04-16 12:21] LABS: Glucose,Whole Blood 354 mg/dL (75-99)
[2019-04-16] MEDS: HYDROcodone/APAP 5-325MG 1 EACH TAB PO PRN ×2 (12:25→17:11)
[2019-04-16] MEDS: VANCOMYCIN 2,000 MG in SODIUM CHLORIDE 0.9% 500 ML 500 ML IVPB SCH (15:15)
[2019-04-16 17:03] LABS: Glucose,Whole Blood 142 mg/dL (75-99)
[2019-04-16 20:18] LABS: Glucose,Whole Blood 219 mg/dL (75-99)
[2019-04-17] MEDS: PIPERACILLIN-TAZOBACTAM 3.375 GM in SODIUM CHLORIDE 0.9% 100 ML IVPB SCH ×3 (05:08→19:42)
[2019-04-17 07:35] LABS: Glucose,Whole Blood 244 mg/dL (75-99)
[2019-04-17] MEDS: LISINOPRIL-HCTZ 10-12.5 MG 1 EACH TAB PO SCH ×2 (08:10→22:05)
[2019-04-17] MEDS: METOPROLOL SUCCINATE (ER) 100 MG TAB.ER.24H PO SCH (08:10)
[2019-04-17] MEDS: amLODIPine 2.5 MG TAB PO SCH (08:10)
[2019-04-17] MEDS: INSULIN ASPART (NovoLOG) 100 UNIT/ML VIAL SQ SCH ×4 (08:10→22:24)
[2019-04-17] MEDS: HYDROcodone/APAP 5-325MG 1 EACH TAB PO PRN (08:13)
[2019-04-17 08:17] LABS: Calcium 8.8 mg/dL (8.4-10.2); Potassium 4.8 mmol/L (3.5-5.1)
[2019-04-17] MEDS: ENOXAPARIN 40 MG/0.4 ML SYRINGE SQ SCH (08:17)
[2019-04-17] MEDS: ATORVASTATIN 20 MG TAB PO SCH (08:17)
[2019-04-17] MEDS: COLLAGENASE 250 UNIT/GM OINTMENT 30 GM TUBE TOPICAL SCH (08:18)
[2019-04-17 08:25] LABS: Basophils % (A) 0 %; Eosinophils # (A) 0.3 k/uL (0-0.7); Eosinophils % (A) 3 %; HCT 28.9 % (34.0-46.0); HGB 9.4 gm/dL (11.4-16.0); Lymphocytes # (A) 1.5 k/uL (1.0-4.8); Lymphocytes % (A) 13 %; MCH 27.8 pg (25.0-35.0); MCHC 32.7 g/dL (31.0-37.0); MCV 85.1 fL (80.0-100.0); Monocytes # (A) 0.6 k/uL (0-1.0); Monocytes % (A) 5 %; Neutrophils # (A) 8.4 k/uL (1.3-7.7); Neutrophils % (A) 77 %; Platelet Count 439 k/uL (150-450); RBC 3.39 m/uL (3.80-5.40); RDW 14.6 % (11.5-15.5); WBC 10.9 k/uL (3.8-10.6)
[2019-04-17] MEDS ORDERED: IV FLUID CONTINUATION 1,000 ML IV ONE (10:10)
[2019-04-17 10:15] LABS: Glucose,Whole Blood 163 mg/dL (75-99)
[2019-04-17] MEDS ORDERED: ONDANSETRON 4 MG/2 ML VIAL IVP ONE (10:18)
[2019-04-17] MEDS ORDERED: DEXAMETHASONE SOD PHOSPHATE 4 MG/ML 1 ML VIAL IV ONE (10:18)
[2019-04-17] MEDS ORDERED: MIDAZOLAM 2 MG/2 ML VIAL ONE (10:20)
[2019-04-17] MEDS ORDERED: LIDOCAINE 1% INJ 10MG/ML (20 ML MDV) ONE (10:20)
[2019-04-17] MEDS ORDERED: KETAMINE 10 MG/ML 20 ML VIAL ONE (10:20)
[2019-04-17] MEDS ORDERED: PROPOFOL 10 MG/ML 20 ML VIAL IV ONE (10:20)
[2019-04-17] MEDS ORDERED: fentaNYL (PF) 50 MCG/ML 2 ML AMP ONE (10:20)
--- NOTE | 2019-04-17 10:35 | P.PN ---
Progress Note - Text 1031. At 10:15 I had a conversation with the patient concerning her CODE STATUS with respect to maneuvers that are commonly required to get patient's through the immediate perioperative period. She agreed to allow us to lift her no CODE STATUS for the immediate perioperative period. Preop nurse Chapito Cortez was present and is making and no dictation of this fact in her preoperative notes. Dr. Macias was also apprised of this. Consequentially she will be a full code for this immediate perioperative period.
[2019-04-17] MEDS ORDERED: LIDOCAINE 1% INJ 10MG/ML (20 ML MDV) SQ ONE ×2 (10:47)
[2019-04-17] MEDS ORDERED: BACITRACIN OINT 1 EACH PACKET TOPICAL ONE (10:49)
[2019-04-17] MEDS ORDERED: HYDROmorphone 1 MG/ML 1 ML SYRINGE IVP ONE ×2 (11:20→11:25)
[2019-04-17 11:32] LABS: Glucose,Whole Blood 152 mg/dL (75-99)
--- NOTE | 2019-04-17 11:35 | P.OP ---
Date of Procedure: 04/17/19 Description of Procedure: SURGEON: Maria Elena Macias DO ENGINEER FISHING VESSEL: None PREOPERATIVE DIAGNOSIS: Dry gangrene of right great toe with infected diabetic foot ulcer POSTOPERATIVE DIAGNOSIS: Same OPERATION: Right first toe ray amputation. Wound VAC application ANESTHESIA: Local with IV sedation per anesthesia ESTIMATED BLOOD LOSS: 25 mL SPECIMENS REMOVED: Right great toe, right first metatarsal for culture. COMPLICATIONS: None OPERATIVE FINDINGS: The patient is a 49-year-old female with uncontrolled diabetes. She has diabetic neuropathy and retinopathy causing legal blindness. She has had an issue with a wound on her right great toe that has worsened and become more foul smelling. Her right great toe was necrotic. There was purulent drainage from the diabetic foot ulcer on the plantar portion of her foot. Given all this she was taken to the operative suite for surgical intervention and resection. At the time of the procedure, there was not enough healthy viable tissue to bridge between the great toe amputation in the plantar foot wound, and interestingly enough there was a tract between the 2 with purulent drainage and discharge therefore the entirety of the wounds or removed along with the distal portion of the first metatarsal. A wound VAC was placed. DESCRIPTION OF PROCEDURE: This patient was brought to the operating room, and given local and IV sedation. The operative foot was prepped and draped in sterile manner. An incision was made at the base of the first toe deep into skin and fascia on plantar and dorsal aspect until we reached the head of the metatarsal bone. This will also continue down to the plantar portion of the foot to encompass the plantar ulceration. The head of the metatarsal was from the first toe. The tendons were divided in plantar and dorsal aspects. The first toe was removed. The sesamoid bone was removed. The periosteal tissues were elevated on the first metatarsal and utilizing a bone cutters, the first metatarsal head was removed. A Gabriel and rasp were utilized to smooth the remaining bone. There were minimal bleeding points which were electrocoagulated. The area was then copiously irrigated. Cultures had been sent. A small wound VAC was utilized and in place with good seal at the final portion of the procedure. A dressing was placed. The patient was taken back to the PACU in stable condition. The patient tolerated the procedure well.
[2019-04-17 13:11] LABS: Glucose,Whole Blood 180 mg/dL (75-99)
[2019-04-17] MEDS: VANCOMYCIN 2,000 MG in SODIUM CHLORIDE 0.9% 500 ML 500 ML IVPB SCH (15:26)
[2019-04-17 17:02] LABS: Glucose,Whole Blood 294 mg/dL (75-99)
[2019-04-17 21:23] LABS: Glucose,Whole Blood 424 mg/dL (75-99)
[2019-04-17 22:21] LABS: Glucose,Whole Blood 378 mg/dL (75-99)
[2019-04-18] MEDS: PIPERACILLIN-TAZOBACTAM 3.375 GM in SODIUM CHLORIDE 0.9% 100 ML IVPB SCH ×3 (04:10→19:39)
[2019-04-18 07:23] LABS: Glucose,Whole Blood 319 mg/dL (75-99)
[2019-04-18] MEDS ORDERED: INSULIN ASPART (NovoLOG) 100 UNIT/ML VIAL SQ SCH (07:30)
[2019-04-18 07:46] LABS: Calcium 8.6 mg/dL (8.4-10.2); Potassium 4.3 mmol/L (3.5-5.1)
[2019-04-18] MEDS: ENOXAPARIN 40 MG/0.4 ML SYRINGE SQ SCH (07:46)
[2019-04-18] MEDS: INSULIN ASPART (NovoLOG) 100 UNIT/ML VIAL SQ SCH ×6 (07:46→21:18)
[2019-04-18] MEDS: amLODIPine 2.5 MG TAB PO SCH (07:47)
[2019-04-18] MEDS: METOPROLOL SUCCINATE (ER) 100 MG TAB.ER.24H PO SCH (07:47)
[2019-04-18] MEDS: ATORVASTATIN 20 MG TAB PO SCH (07:47)
[2019-04-18] MEDS: COLLAGENASE 250 UNIT/GM OINTMENT 30 GM TUBE TOPICAL SCH (07:48)
[2019-04-18] MEDS: LISINOPRIL-HCTZ 10-12.5 MG 1 EACH TAB PO SCH ×2 (07:50→21:18)
[2019-04-18 09:48] LABS: Basophils % (A) 0 %; Eosinophils # (A) 0.1 k/uL (0-0.7); Eosinophils % (A) 1 %; HCT 30.2 % (34.0-46.0); HGB 9.7 gm/dL (11.4-16.0); Hypochromasia Slight; Lymphocytes # (A) 1.3 k/uL (1.0-4.8); Lymphocytes % (A) 8 %; MCH 28.3 pg (25.0-35.0); MCHC 32.2 g/dL (31.0-37.0); MCV 87.7 fL (80.0-100.0); Mean Platelet Volume 7.5; Monocytes # (A) 0.5 k/uL (0-1.0); Monocytes % (A) 3 %; Neutrophils # (A) 14.3 k/uL (1.3-7.7); Neutrophils % (A) 87 %; Platelet Count 466 k/uL (150-450); RBC 3.45 m/uL (3.80-5.40); RDW 14.7 % (11.5-15.5); WBC 16.4 k/uL (3.8-10.6)
[2019-04-18 11:33] LABS: Glucose,Whole Blood 404 mg/dL (75-99)
[2019-04-18] MEDS: VANCOMYCIN 2,000 MG in SODIUM CHLORIDE 0.9% 500 ML 500 ML IVPB SCH (15:00)
[2019-04-18] MEDS: HYDROcodone/APAP 5-325MG 1 EACH TAB PO PRN (15:00)
--- NOTE | 2019-04-18 16:28 | P.PN ---
Subjective Progress Note Date: 04/18/19 Principal diagnosis: right great toe gangrene Patient seen and examined. Doing well. No complaints. Pain controlled. Objective - Vital Signs Vital signs: Vital Signs Temp 98.6 F 04/18/19 14:03 Pulse 77 04/18/19 14:03 Resp 15 04/18/19 14:03 BP 117/76 04/18/19 14:03 Pulse Ox 98 04/18/19 14:03 Intake & Output 04/17/19 04/18/19 04/18/19 18:59 06:59 18:59 Intake Total 800 420 Output Total 25 Balance 775 420 Weight 120.202 kg Intake: IV 800 Oral 420 Output: Drainage 0 Right Toe 0 Estimated Blood Loss 25 Other: Voiding Method Toilet Toilet # Voids 1 1 - Exam right toe wound vac in place, no tenderness to palpation. - Constitutional General appearance: Present: average body habitus, cooperative - Labs CBC & Chem 7: 04/18/19 07:13 04/18/19 07:13 Labs: Abnormal Lab Results - Last 24 Hours (Table) 04/17/19 04/17/19 04/17/19 Range/Units 16:58 21:21 22:18 WBC (3.8-10.6) k/uL RBC (3.80-5.40) m/uL Hgb (11.4-16.0) gm/dL Hct (34.0-46.0) % Plt Count (150-450) k/uL Neutrophils # (1.3-7.7) k/uL Sodium (137-145) mmol/L BUN (7-17) mg/dL Creatinine (0.52-1.04) mg/dL Glucose (74-99) mg/dL POC Glucose (mg/dL) 294 H 424 H 378 H (75-99) mg/dL 04/18/19 04/18/19 04/18/19 Range/Units 07:13 07:13 07:19 WBC 16.4 H (3.8-10.6) k/uL RBC 3.45 L (3.80-5.40) m/uL Hgb 9.7 L (11.4-16.0) gm/dL Hct 30.2 L (34.0-46.0) % Plt Count 466 H (150-450) k/uL Neutrophils # 14.3 H (1.3-7.7) k/uL Sodium 136 L (137-145) mmol/L BUN 29 H (7-17) mg/dL Creatinine 2.06 H (0.52-1.04) mg/dL Glucose 319 H (74-99) mg/dL POC Glucose (mg/dL) 319 H (75-99) mg/dL 04/18/19 Range/Units 11:31 WBC (3.8-10.6) k/uL RBC (3.80-5.40) m/uL Hgb (11.4-16.0) gm/dL Hct (34.0-46.0) % Plt Count (150-450) k/uL Neutrophils # (1.3-7.7) k/uL Sodium (137-145) mmol/L BUN (7-17) mg/dL Creatinine (0.52-1.04) mg/dL Glucose (74-99) mg/dL POC Glucose (mg/dL) 404 H (75-99) mg/dL Microbiology - Last 24 Hours (Table) 04/17/19 11:12 Gram Stain - Preliminary Other - Other Wound Culture - Preliminary 04/17/19 11:10 Gram Stain - Preliminary Toe - Right First Tissue Culture - Preliminary 04/15/19 16:40 Blood Culture - Preliminary Blood No Growth after 48 hours 04/17/19 11:10 Anaerobic Culture - Preliminary Toe - Right First 04/17/19 11:12 Anaerobic Culture - Preliminary Other - Other Assessment and Plan Assessment: 1. Right great toe gangrene s/p amputation and wound vac placement 2. right plantar diabetic foot ulcer 3. diabetes 4. diabetic neuropathy 5. diabetic retinopathy with blindness 6. HTN Plan: continue wound vac therapy. Wound measured 8x6x2 cm and will likely take weeks to months to heal. continue blood sugar control, antibiotics, and pain control
[2019-04-18 16:56] LABS: Glucose,Whole Blood 125 mg/dL (75-99)
[2019-04-18 21:07] LABS: Glucose,Whole Blood 271 mg/dL (75-99)
[2019-04-19] MEDS: PIPERACILLIN-TAZOBACTAM 3.375 GM in SODIUM CHLORIDE 0.9% 100 ML IVPB SCH ×3 (04:33→22:51)
[2019-04-19 07:15] LABS: Glucose,Whole Blood 352 mg/dL (75-99)
[2019-04-19] MEDS: INSULIN ASPART (NovoLOG) 100 UNIT/ML VIAL SQ SCH ×8 (07:51→22:54)
[2019-04-19 08:09] LABS: Basophils % (A) 0 %; Eosinophils # (A) 0.2 k/uL (0-0.7); Eosinophils % (A) 2 %; HCT 32.6 % (34.0-46.0); HGB 10.7 gm/dL (11.4-16.0); Hypochromasia Slight; Lymphocytes # (A) 1.6 k/uL (1.0-4.8); Lymphocytes % (A) 13 %; MCH 28.7 pg (25.0-35.0); MCHC 32.8 g/dL (31.0-37.0); MCV 87.5 fL (80.0-100.0); Mean Platelet Volume 7.2; Monocytes # (A) 0.5 k/uL (0-1.0); Monocytes % (A) 4 %; Neutrophils # (A) 10.6 k/uL (1.3-7.7); Neutrophils % (A) 81 %; Platelet Count 521 k/uL (150-450); RBC 3.72 m/uL (3.80-5.40); RDW 14.7 % (11.5-15.5); WBC 13.1 k/uL (3.8-10.6)
[2019-04-19 08:20] LABS: Potassium 4.5 mmol/L (3.5-5.1)
[2019-04-19] MEDS: ENOXAPARIN 40 MG/0.4 ML SYRINGE SQ SCH (09:29)
[2019-04-19] MEDS: ATORVASTATIN 20 MG TAB PO SCH (09:30)
[2019-04-19] MEDS: METOPROLOL SUCCINATE (ER) 100 MG TAB.ER.24H PO SCH (09:30)
[2019-04-19] MEDS: amLODIPine 2.5 MG TAB PO SCH (09:30)
[2019-04-19] MEDS: LISINOPRIL-HCTZ 10-12.5 MG 1 EACH TAB PO SCH (09:30)
[2019-04-19] MEDS: COLLAGENASE 250 UNIT/GM OINTMENT 30 GM TUBE TOPICAL SCH (09:44)
--- NOTE | 2019-04-19 10:37 | P.PN ---
Subjective Progress Note Date: 04/18/19 Principal diagnosis: Right great toe gangrene; status post amputation Hyperglycemia 41-year-old female with past medical history significant for type 2 diabetes with neuropathy, hypertension, hyperlipidemia, admitted to the hospital with diabetic ulcer right foot along with gangrene and cellulitis right great toe Objective - Vital Signs Vital signs: Vital Signs Temp 98.6 F 04/18/19 07:16 Pulse 76 04/18/19 07:16 Resp 15 04/18/19 07:16 BP 136/85 04/18/19 07:16 Pulse Ox 100 04/18/19 07:16 Intake & Output 04/17/19 04/18/19 04/18/19 18:59 06:59 18:59 Intake Total 800 180 Output Total 25 Balance 775 180 Intake: IV 800 Oral 180 Output: Drainage 0 Right Toe 0 Estimated Blood Loss 25 Other: Voiding Method Toilet Toilet # Voids 1 1 - Exam General: non toxic, no distress, appears at stated age Derm: warm, dry. R great toe with necrotic tissue extending to joint. Pad of R foot with diabetic ulcer Head: atraumatic, normocephalic, symmetric Eyes: EOMI, no lid lag, anicteric sclera Mouth: no lip lesion, mucus membranes moist Cardiovascular: S1S2 reg, no murmur, diminished posterior tibial pulse bilateral Lungs: CTA bilateral, no rhonchi, no rales , no accessory muscle use Abdominal: soft, nontender to palpation, no guarding, no appreciable organomegaly Ext: no gross muscle atrophy, 1+ edema, no contractures - Labs CBC & Chem 7: 04/19/19 07:20 04/19/19 07:20 Labs: Abnormal Lab Results - Last 24 Hours (Table) 04/17/19 04/17/19 04/17/19 Range/Units 11:23 13:09 16:58 WBC (3.8-10.6) k/uL RBC (3.80-5.40) m/uL Hgb (11.4-16.0) gm/dL Hct (34.0-46.0) % Plt Count (150-450) k/uL Neutrophils # (1.3-7.7) k/uL Sodium (137-145) mmol/L BUN (7-17) mg/dL Creatinine (0.52-1.04) mg/dL Glucose (74-99) mg/dL POC Glucose (mg/dL) 152 H 180 H 294 H (75-99) mg/dL 04/17/19 04/17/19 04/18/19 Range/Units 21:21 22:18 07:13 WBC 16.4 H (3.8-10.6) k/uL RBC 3.45 L (3.80-5.40) m/uL Hgb 9.7 L (11.4-16.0) gm/dL Hct 30.2 L (34.0-46.0) % Plt Count 466 H (150-450) k/uL Neutrophils # 14.3 H (1.3-7.7) k/uL Sodium (137-145) mmol/L BUN (7-17) mg/dL Creatinine (0.52-1.04) mg/dL Glucose (74-99) mg/dL POC Glucose (mg/dL) 424 H 378 H (75-99) mg/dL 04/18/19 04/18/19 Range/Units 07:13 07:19 WBC (3.8-10.6) k/uL RBC (3.80-5.40) m/uL Hgb (11.4-16.0) gm/dL Hct (34.0-46.0) % Plt Count (150-450) k/uL Neutrophils # (1.3-7.7) k/uL Sodium 136 L (137-145) mmol/L BUN 29 H (7-17) mg/dL Creatinine 2.06 H (0.52-1.04) mg/dL Glucose 319 H (74-99) mg/dL POC Glucose (mg/dL) 319 H (75-99) mg/dL Microbiology - Last 24 Hours (Table) 04/17/19 11:12 Gram Stain - Preliminary Other - Other Wound Culture - Preliminary 04/17/19 11:10 Gram Stain - Preliminary Toe - Right First Tissue Culture - Preliminary 04/15/19 16:40 Blood Culture - Preliminary Blood No Growth after 48 hours 04/17/19 11:10 Anaerobic Culture - Preliminary Toe - Right First 04/17/19 11:12 Anaerobic Culture - Preliminary Other - Other Assessment and Plan Assessment: 1. Gangrene/ cellulitis. - Diabetic ulcer right great toe. Vascular surgery on board; post-right great toe amputation. - Continue Zosyn and vancomycin. Local wound care/ continue with wound VAC 2. Type 2 diabetes; uncontrolled. Accu-Chek and sliding scale insulin 3. Hypertension. Continue Norvasc, lisinopril and HCTZ 4. Hyperlipidemia. Lipitor 20 mg daily 5. DVT prophylaxis; subcu Lovenox CODE STATUS; DO NOT RESUSCITATE
[2019-04-19 11:32] LABS: Glucose,Whole Blood 303 mg/dL (75-99)
[2019-04-19] MEDS ORDERED: VANCOMYCIN TROUGH DUE 1 EACH MISC MISCELLANE ONE (13:00)
[2019-04-19] MEDS: VANCOMYCIN 2,000 MG in SODIUM CHLORIDE 0.9% 500 ML 500 ML IVPB SCH (14:26)
[2019-04-19 17:02] LABS: Glucose,Whole Blood 118 mg/dL (75-99)
[2019-04-19 21:35] LABS: Glucose,Whole Blood 108 mg/dL (75-99)
[2019-04-19] MEDS: HYDROcodone/APAP 5-325MG 1 EACH TAB PO PRN (22:51)
[2019-04-20 00:02] LABS: Glucose,Whole Blood 244 mg/dL (75-99)
[2019-04-20] MEDS: LISINOPRIL-HCTZ 10-12.5 MG 1 EACH TAB PO SCH ×3 (00:13→21:46)
[2019-04-20] MEDS: PIPERACILLIN-TAZOBACTAM 3.375 GM in SODIUM CHLORIDE 0.9% 100 ML IVPB SCH ×3 (05:18→21:45)
[2019-04-20 07:07] LABS: Glucose,Whole Blood 227 mg/dL (75-99)
[2019-04-20] MEDS: INSULIN ASPART (NovoLOG) 100 UNIT/ML VIAL SQ SCH ×7 (07:56→21:45)
[2019-04-20 08:08] LABS: Basophils # (A) 0.1 k/uL (0-0.2); Basophils % (A) 1 %; Eosinophils # (A) 0.2 k/uL (0-0.7); Eosinophils % (A) 2 %; HCT 31.9 % (34.0-46.0); Hypochromasia Slight; Lymphocytes # (A) 1.5 k/uL (1.0-4.8); Lymphocytes % (A) 14 %; MCH 27.4 pg (25.0-35.0); MCHC 31.4 g/dL (31.0-37.0); MCV 87.1 fL (80.0-100.0); Mean Platelet Volume 7.4; Monocytes # (A) 0.5 k/uL (0-1.0); Monocytes % (A) 5 %; Neutrophils # (A) 8.3 k/uL (1.3-7.7); Neutrophils % (A) 78 %; Platelet Count 431 k/uL (150-450); RBC 3.66 m/uL (3.80-5.40); RDW 15.6 % (11.5-15.5); WBC 10.7 k/uL (3.8-10.6)
[2019-04-20 08:22] LABS: Calcium 8.9 mg/dL (8.4-10.2); Potassium 4.3 mmol/L (3.5-5.1)
[2019-04-20] MEDS: COLLAGENASE 250 UNIT/GM OINTMENT 30 GM TUBE TOPICAL SCH (09:54)
[2019-04-20] MEDS: ENOXAPARIN 40 MG/0.4 ML SYRINGE SQ SCH (09:58)
[2019-04-20] MEDS: ATORVASTATIN 20 MG TAB PO SCH (09:58)
[2019-04-20] MEDS: METOPROLOL SUCCINATE (ER) 100 MG TAB.ER.24H PO SCH (09:58)
[2019-04-20] MEDS: amLODIPine 2.5 MG TAB PO SCH (09:58)
[2019-04-20 11:57] LABS: Glucose,Whole Blood 206 mg/dL (75-99)
--- NOTE | 2019-04-20 13:51 | P.PN ---
Subjective Progress Note Date: 04/19/19 Principal diagnosis: Right great toe gangrene; status post amputation Hyperglycemia 41-year-old female with past medical history significant for type 2 diabetes with neuropathy, hypertension, hyperlipidemia, admitted to the hospital with diabetic ulcer right foot along with gangrene and cellulitis right great toe; patient is status post Right first toe ray amputation; POD #2 04/19/2019 Patient seen and evaluated in the room at bedside; markedly elevated blood sugars were discussed with patient; patient is quite irritable at the mention of increasing insulin starting insulin infusion for improved control of blood sugars Vital signs are reviewed; temperature of 99.0, pulse 84, respirations 16 and blood pressure 130/83 with SpO2 of 97% on room air Lab review is significant for an improvement in white blood count at 13.1 this morning from 16.4 yesterday; hemoglobin remained stable at 10.7; sodium of 138, potassium 4.5 and improved B UN/creatinine of 30/2.14 from 29/2.06 yesterday; blood sugars remain elevated in the range of 319-325; patient refuses change in insulin or infusion; we will continue with current regimen and continue with Accu-Cheks with insulin sliding scale Continue with IV Zosyn and vancomycin and local wound care along with wound VAC; further recommendations per vascular service Objective - Vital Signs Vital signs: Vital Signs Temp 99.1 F 04/19/19 07:00 Pulse 83 04/19/19 07:00 Resp 16 04/19/19 07:00 BP 119/77 04/19/19 07:00 Pulse Ox 100 04/19/19 07:00 Intake & Output 04/18/19 04/19/19 04/19/19 18:59 06:59 18:59 Intake Total 420 Output Total 700 Balance -280 Weight 120.202 kg Intake: Oral 420 Output: Urine 700 Other: Voiding Method Toilet # Voids 3 1 - Exam General: non toxic, no distress, appears at stated age Derm: warm, dry. R great toe with necrotic tissue extending to joint. Pad of R foot with diabetic ulcer Head: atraumatic, normocephalic, symmetric Eyes: EOMI, no lid lag, anicteric sclera Mouth: no lip lesion, mucus membranes moist Cardiovascular: S1S2 reg, no murmur, diminished posterior tibial pulse bilateral Lungs: CTA bilateral, no rhonchi, no rales , no accessory muscle use Abdominal: soft, nontender to palpation, no guarding, no appreciable organomegaly Ext: no gross muscle atrophy, 1+ edema, no contractures - Labs CBC & Chem 7: 04/20/19 07:29 04/20/19 07:29 Labs: Abnormal Lab Results - Last 24 Hours (Table) 04/18/19 04/18/19 04/18/19 Range/Units 11:31 16:55 21:05 WBC (3.8-10.6) k/uL RBC (3.80-5.40) m/uL Hgb (11.4-16.0) gm/dL Hct (34.0-46.0) % Plt Count (150-450) k/uL Neutrophils # (1.3-7.7) k/uL BUN (7-17) mg/dL Creatinine (0.52-1.04) mg/dL Glucose (74-99) mg/dL POC Glucose (mg/dL) 404 H 125 H 271 H (75-99) mg/dL 04/19/19 04/19/19 04/19/19 Range/Units 07:03 07:20 07:20 WBC 13.1 H (3.8-10.6) k/uL RBC 3.72 L (3.80-5.40) m/uL Hgb 10.7 L (11.4-16.0) gm/dL Hct 32.6 L (34.0-46.0) % Plt Count 521 H (150-450) k/uL Neutrophils # 10.6 H (1.3-7.7) k/uL BUN 30 H (7-17) mg/dL Creatinine 2.14 H (0.52-1.04) mg/dL Glucose 325 H (74-99) mg/dL POC Glucose (mg/dL) 352 H (75-99) mg/dL Microbiology - Last 24 Hours (Table) 04/15/19 16:40 Blood Culture - Preliminary Blood No Growth after 72 hours 04/17/19 11:12 Gram Stain - Preliminary Other - Other Wound Culture - Preliminary Assessment and Plan Assessment: 1. Gangrene/ cellulitis. - Diabetic ulcer right great toe. Vascular surgery on board; post-right great toe amputation. - Continue Zosyn and vancomycin. Local wound care/ continue with wound VAC 2. Type 2 diabetes; uncontrolled. Accu-Chek and sliding scale insulin 3. Hypertension. Continue Norvasc, lisinopril and HCTZ 4. Hyperlipidemia. Lipitor 20 mg daily 5. DVT prophylaxis; subcu Lovenox CODE STATUS; DO NOT RESUSCITATE Time with Patient: Greater than 30
[2019-04-20] MEDS: VANCOMYCIN 2,000 MG in SODIUM CHLORIDE 0.9% 500 ML 500 ML IVPB SCH (15:57)
--- NOTE | 2019-04-20 16:48 | P.PN ---
Subjective Progress Note Date: 04/20/19 Principal diagnosis: Right great toe gangrene; status post amputation Hyperglycemia 41-year-old female with past medical history significant for type 2 diabetes with neuropathy, hypertension, hyperlipidemia, admitted to the hospital with diabetic ulcer right foot along with gangrene and cellulitis right great toe; patient is status post Right first toe ray amputation; POD #3 04/20/2019 Patient seen and evaluated in the room at bedside; blood sugars are somewhat improved compared to yesterday; patient is quite irritable since she has not been evaluated by surgery service Vital signs are reviewed; temperature of 98.9, pulse 80, respirations 16 and blood pressure 125/80 Lab review is significant for an improvement in white blood count at 10.7; hem oglobin remained stable at 10.0; sodium of 137, potassium 4.3 and improved B UN/creatinine of from 29/2.06 yesterday to 32/1.938 this morning Continue with IV Zosyn and vancomycin and local wound care along with wound VAC; further recommendations per vascular service Objective - Vital Signs Vital signs: Vital Signs Temp 98.0 F 04/20/19 07:00 Pulse 83 04/20/19 07:00 Resp 16 04/20/19 07:00 BP 112/72 04/20/19 07:00 Pulse Ox 98 04/20/19 07:00 Intake & Output 04/19/19 04/20/19 04/20/19 18:59 06:59 18:59 Intake Total 250 236 Balance 250 236 Intake: Oral 250 236 Other: # Voids 3 1 - Exam General: non toxic, no distress, appears at stated age Derm: warm, dry. R great toe with necrotic tissue extending to joint. Pad of R foot with diabetic ulcer Head: atraumatic, normocephalic, symmetric Eyes: EOMI, no lid lag, anicteric sclera Mouth: no lip lesion, mucus membranes moist Cardiovascular: S1S2 reg, no murmur, diminished posterior tibial pulse bilateral Lungs: CTA bilateral, no rhonchi, no rales , no accessory muscle use Abdominal: soft, nontender to palpation, no guarding, no appreciable organomegaly Ext: no gross muscle atrophy, 1+ edema, no contractures - Labs CBC & Chem 7: 04/20/19 07:29 04/20/19 07:29 Labs: Abnormal Lab Results - Last 24 Hours (Table) 04/19/19 04/19/19 04/20/19 Range/Units 16:50 21:34 00:00 WBC (3.8-10.6) k/uL RBC (3.80-5.40) m/uL Hgb (11.4-16.0) gm/dL Hct (34.0-46.0) % RDW (11.5-15.5) % Neutrophils # (1.3-7.7) k/uL BUN (7-17) mg/dL Creatinine (0.52-1.04) mg/dL Glucose (74-99) mg/dL POC Glucose (mg/dL) 118 H 108 H 244 H (75-99) mg/dL 04/20/19 04/20/19 04/20/19 Range/Units 07:06 07:29 07:29 WBC 10.7 H (3.8-10.6) k/uL RBC 3.66 L (3.80-5.40) m/uL Hgb 10.0 L (11.4-16.0) gm/dL Hct 31.9 L (34.0-46.0) % RDW 15.6 H (11.5-15.5) % Neutrophils # 8.3 H (1.3-7.7) k/uL BUN 32 H (7-17) mg/dL Creatinine 1.93 H (0.52-1.04) mg/dL Glucose 243 H (74-99) mg/dL POC Glucose (mg/dL) 227 H (75-99) mg/dL 04/20/19 Range/Units 11:55 WBC (3.8-10.6) k/uL RBC (3.80-5.40) m/uL Hgb (11.4-16.0) gm/dL Hct (34.0-46.0) % RDW (11.5-15.5) % Neutrophils # (1.3-7.7) k/uL BUN (7-17) mg/dL Creatinine (0.52-1.04) mg/dL Glucose (74-99) mg/dL POC Glucose (mg/dL) 206 H (75-99) mg/dL Microbiology - Last 24 Hours (Table) 04/17/19 11:10 Gram Stain - Final Toe - Right First Tissue Culture - Final Coagulase Negative Staph Alpha Hemolytic Streptococcus Coagulase Negative Staph#2 04/17/19 11:12 Gram Stain - Final Other - Other Wound Culture - Final 04/15/19 16:40 Blood Culture - Preliminary Blood No Growth after 96 hours 04/17/19 11:10 Anaerobic Culture - Preliminary Toe - Right First 04/17/19 11:12 Anaerobic Culture - Preliminary Other - Other Assessment and Plan Assessment: 1. Gangrene/ cellulitis. - Diabetic ulcer right great toe. Vascular surgery on board; post-right great toe amputation. - Continue Zosyn and vancomycin. Local wound care/ continue with wound VAC 2. Type 2 diabetes; uncontrolled. Accu-Chek and sliding scale insulin 3. Hypertension. Continue Norvasc, lisinopril and HCTZ 4. Hyperlipidemia. Lipitor 20 mg daily 5. DVT prophylaxis; subcu Lovenox CODE STATUS; DO NOT RESUSCITATE Time with Patient: Greater than 30
[2019-04-20 16:55] LABS: Glucose,Whole Blood 138 mg/dL (75-99)
[2019-04-20 21:40] LABS: Glucose,Whole Blood 176 mg/dL (75-99)
[2019-04-20] MEDS: HYDROcodone/APAP 5-325MG 1 EACH TAB PO PRN (21:45)
[2019-04-21] MEDS: PIPERACILLIN-TAZOBACTAM 3.375 GM in SODIUM CHLORIDE 0.9% 100 ML IVPB SCH ×3 (04:51→21:35)
[2019-04-21 07:08] LABS: Basophils % (A) 0 %; Eosinophils # (A) 0.3 k/uL (0-0.7); Eosinophils % (A) 3 %; HCT 29.1 % (34.0-46.0); HGB 9.3 gm/dL (11.4-16.0); Lymphocytes # (A) 1.5 k/uL (1.0-4.8); Lymphocytes % (A) 15 %; MCH 27.3 pg (25.0-35.0); MCHC 31.8 g/dL (31.0-37.0); MCV 85.7 fL (80.0-100.0); Mean Platelet Volume 7.2; Monocytes # (A) 0.4 k/uL (0-1.0); Monocytes % (A) 4 %; Neutrophils # (A) 7.7 k/uL (1.3-7.7); Neutrophils % (A) 77 %; Platelet Count 357 k/uL (150-450); RBC 3.39 m/uL (3.80-5.40); WBC 10.1 k/uL (3.8-10.6)
[2019-04-21 07:24] LABS: Calcium 8.9 mg/dL (8.4-10.2); Potassium 4.5 mmol/L (3.5-5.1)
[2019-04-21 07:34] LABS: Glucose,Whole Blood 238 mg/dL (75-99)
[2019-04-21] MEDS: METOPROLOL SUCCINATE (ER) 100 MG TAB.ER.24H PO SCH (08:02)
[2019-04-21] MEDS: ENOXAPARIN 40 MG/0.4 ML SYRINGE SQ SCH (08:02)
[2019-04-21] MEDS: INSULIN ASPART (NovoLOG) 100 UNIT/ML VIAL SQ SCH ×7 (08:02→21:34)
[2019-04-21] MEDS: ATORVASTATIN 20 MG TAB PO SCH (08:02)
[2019-04-21] MEDS: amLODIPine 2.5 MG TAB PO SCH (08:02)
[2019-04-21] MEDS: LISINOPRIL-HCTZ 10-12.5 MG 1 EACH TAB PO SCH ×2 (08:02→22:16)
[2019-04-21] MEDS: COLLAGENASE 250 UNIT/GM OINTMENT 30 GM TUBE TOPICAL SCH (08:05)
--- NOTE | 2019-04-21 11:27 | P.PN ---
Subjective Progress Note Date: 04/21/19 Principal diagnosis: Status post amputation right great toe The patient is without complaint. The wound VAC was removed from the right great toe wound. This revealed excellent granular tissue noted with no area of necrotic tissue. Excellent bleeding characteristics were identified. Wound VAC supplies have been ordered and will be replaced when available. In the interim a dry dressing was placed over the wound. Clinically it does not appear that IV antibiotics would be necessary. I believe the oral antibiotic root would be appropriate. I will however discuss this with Dr. Macias. Objective - Vital Signs Vital signs: Vital Signs Temp 98.5 F 04/21/19 07:52 Pulse 79 04/21/19 07:52 Resp 16 04/21/19 07:52 BP 118/78 04/21/19 07:52 Pulse Ox 98 04/21/19 07:52 Intake & Output 04/20/19 04/21/19 04/21/19 18:59 06:59 18:59 Intake Total 416 10 250 Balance 416 10 250 Intake: Oral 416 10 250 Other: Voiding Method Toilet # Voids 2 1 - Labs CBC & Chem 7: 04/21/19 06:40 04/21/19 06:40 Labs: Abnormal Lab Results - Last 24 Hours (Table) 04/20/19 04/20/19 04/20/19 Range/Units 11:55 16:54 21:39 RBC (3.80-5.40) m/uL Hgb (11.4-16.0) gm/dL Hct (34.0-46.0) % BUN (7-17) mg/dL Creatinine (0.52-1.04) mg/dL Glucose (74-99) mg/dL POC Glucose (mg/dL) 206 H 138 H 176 H (75-99) mg/dL 04/21/19 04/21/19 04/21/19 Range/Units 06:40 06:40 07:33 RBC 3.39 L (3.80-5.40) m/uL Hgb 9.3 L (11.4-16.0) gm/dL Hct 29.1 L (34.0-46.0) % BUN 34 H (7-17) mg/dL Creatinine 2.12 H (0.52-1.04) mg/dL Glucose 229 H (74-99) mg/dL POC Glucose (mg/dL) 238 H (75-99) mg/dL Microbiology - Last 24 Hours (Table) 04/17/19 11:10 Anaerobic Culture - Final Toe - Right First 04/17/19 11:12 Anaerobic Culture - Final Other - Other 04/15/19 16:40 Blood Culture - Preliminary Blood No Growth after 120 hours 04/17/19 11:10 Gram Stain - Final Toe - Right First Tissue Culture - Final Coagulase Negative Staph Alpha Hemolytic Streptococcus Coagulase Negative Staph#2 04/17/19 11:12 Gram Stain - Final Other - Other Wound Culture - Final
[2019-04-21 11:48] LABS: Glucose,Whole Blood 267 mg/dL (75-99)
--- NOTE | 2019-04-21 14:28 | P.PN ---
Subjective Progress Note Date: 04/21/19 41-year-old female with past medical history significant for type 2 diabetes with neuropathy, hypertension, hyperlipidemia, admitted to the hospital with diabetic ulcer right foot along with gangrene and cellulitis right great toe; patient is status post Right first toe ray amputation; POD #3 04/20/2019 Patient seen and evaluated in the room at bedside; blood sugars are somewhat improved compared to yesterday; patient is quite irritable since she has not been evaluated by surgery service Vital signs are reviewed; temperature of 98.9, pulse 80, respirations 16 and blood pressure 125/80 Lab review is significant for an improvement in white blood count at 10.7; hemoglobin remained stable at 10.0; sodium of 137, potassium 4.3 and improved B UN/creatinine of from 29/2.06 yesterday to 32/1.938 this morning Continue with IV Zosyn and vancomycin and local wound care along with wound VAC; further recommendations per vascular service 04/21. Wound vac in place with very little serosanguinous drainage. She states her toe will ache a little after walking on it but overall is feeling well. Denies fevers, chills. Objective - Vital Signs Vital signs: Vital Signs Temp 98.5 F 04/21/19 07:52 Pulse 79 04/21/19 07:52 Resp 16 04/21/19 07:52 BP 118/78 04/21/19 07:52 Pulse Ox 98 04/21/19 07:52 Intake & Output 04/20/19 04/21/19 04/21/19 18:59 06:59 18:59 Intake Total 416 10 250 Balance 416 10 250 Intake: Oral 416 10 250 Other: Voiding Method Toilet # Voids 2 1 - Exam General: non toxic, no distress, appears at stated age Derm: R great toe s/p amputation with wound vac in place Mouth: no lip lesion, mucus membranes moist Cardiovascular: S1S2 reg, no murmur, diminished posterior tibial pulse bilateral Lungs: CTA bilateral, no rhonchi, no rales , no accessory muscle use Abdominal: soft, nontender to palpation, no guarding, no appreciable or ganomegaly Ext: no gross muscle atrophy, 1+ edema, no contractures - Labs CBC & Chem 7: 04/21/19 06:40 04/21/19 06:40 Labs: Abnormal Lab Results - Last 24 Hours (Table) 04/20/19 04/20/19 04/21/19 Range/Units 16:54 21:39 06:40 RBC (3.80-5.40) m/uL Hgb (11.4-16.0) gm/dL Hct (34.0-46.0) % BUN 34 H (7-17) mg/dL Creatinine 2.12 H (0.52-1.04) mg/dL Glucose 229 H (74-99) mg/dL POC Glucose (mg/dL) 138 H 176 H (75-99) mg/dL 04/21/19 04/21/19 04/21/19 Range/Units 06:40 07:33 11:41 RBC 3.39 L (3.80-5.40) m/uL Hgb 9.3 L (11.4-16.0) gm/dL Hct 29.1 L (34.0-46.0) % BUN (7-17) mg/dL Creatinine (0.52-1.04) mg/dL Glucose (74-99) mg/dL POC Glucose (mg/dL) 238 H 267 H (75-99) mg/dL Microbiology - Last 24 Hours (Table) 04/17/19 11:10 Anaerobic Culture - Final Toe - Right First 04/17/19 11:12 Anaerobic Culture - Final Other - Other 04/15/19 16:40 Blood Culture - Preliminary Blood No Growth after 120 hours 04/17/19 11:10 Gram Stain - Final Toe - Right First Tissue Culture - Final Coagulase Negative Staph Alpha Hemolytic Streptococcus Coagulase Negative Staph#2 04/17/19 11:12 Gram Stain - Final Other - Other Wound Culture - Final Assessment and Plan (1) Cellulitis of great toe, right Current Visit: Yes Status: Acute Code(s): L03.031 - CELLULITIS OF RIGHT TOE SNOMED Code(s): 81855616 (2) Diabetic ulcer of right foot Current Visit: Yes Status: Acute Code(s): E11.621 - TYPE 2 DIABETES MELLITUS WITH FOOT ULCER; L97.519 - NON-PRS CHRONIC ULCER OTH PRT RIGHT FOOT W UNSP SEVERITY SNOMED Code(s): 024001880 (3) Dry gangrene Current Visit: Yes Status: Acute Code(s): I96 - GANGRENE, NOT ELSEWHERE CLASSIFIED SNOMED Code(s): 662801027 (4) Type 2 diabetes mellitus Current Visit: Yes Status: Acute Code(s): E11.9 - TYPE 2 DIABETES MELLITUS WITHOUT COMPLICATIONS SNOMED Code(s): 04478289 (5) Morbid obesity with BMI of 40.0-44.9, adult Current Visit: No Status: Acute Code(s): E66.01 - MORBID (SEVERE) OBESITY DUE TO EXCESS CALORIES; Z68.41 - BODY MASS INDEX (BMI) 40.0-44.9, ADULT SNOMED Code(s): 446197803 Plan: 1. Gangrene. Cellulitis. S/p amputation. Continue zosyn and vancomycin at this time. Anticipate switch to oral antibiotics tomorrow, discharge planning per vascular surgery 2. Type 2 diabetes. Accu-Chek and sliding scale insulin 3. Hypertension. Continue Norvasc, lisinopril and HCTZ 4. Hyperlipidemia. Continue statin DVT prophylaxis lovenox
[2019-04-21] MEDS: VANCOMYCIN 2,000 MG in SODIUM CHLORIDE 0.9% 500 ML 500 ML IVPB SCH (15:34)
[2019-04-21 17:32] LABS: Glucose,Whole Blood 161 mg/dL (75-99)
[2019-04-21 20:34] LABS: Glucose,Whole Blood 175 mg/dL (75-99)
[2019-04-21] MEDS: HYDROcodone/APAP 5-325MG 1 EACH TAB PO PRN (21:34)
[2019-04-22 02:47] VITALS: RESP 18
[2019-04-22] MEDS: PIPERACILLIN-TAZOBACTAM 3.375 GM in SODIUM CHLORIDE 0.9% 100 ML IVPB SCH ×2 (04:24→12:17)
[2019-04-22 07:34] LABS: Glucose,Whole Blood 177 mg/dL (75-99)
[2019-04-22] MEDS: INSULIN ASPART (NovoLOG) 100 UNIT/ML VIAL SQ SCH ×4 (07:40→12:17)
[2019-04-22] MEDS: ENOXAPARIN 40 MG/0.4 ML SYRINGE SQ SCH (07:40)
[2019-04-22] MEDS: LISINOPRIL-HCTZ 10-12.5 MG 1 EACH TAB PO SCH (07:40)
[2019-04-22] MEDS: ATORVASTATIN 20 MG TAB PO SCH (07:40)
[2019-04-22] MEDS: METOPROLOL SUCCINATE (ER) 100 MG TAB.ER.24H PO SCH (07:41)
[2019-04-22] MEDS: amLODIPine 2.5 MG TAB PO SCH (07:41)
[2019-04-22 07:46] VITALS: BP 112/76; PULSE 87; TEMP 97.7
--- NOTE | 2019-04-22 09:25 | P.PN ---
Subjective Progress Note Date: 04/22/19 Principal diagnosis: right great toe gangrene Patient seen and examined. Doing well. No complaints. Pain controlled. VAC changed yesterday and reinforced last night. No leak. Objective - Vital Signs Vital signs: Vital Signs Temp 97.7 F 04/22/19 07:00 Pulse 87 04/22/19 07:00 Resp 18 04/22/19 07:00 BP 112/76 04/22/19 07:00 Pulse Ox 100 04/22/19 07:00 Intake & Output 04/21/19 04/22/19 04/22/19 18:59 06:59 18:59 Intake Total 250 300 Balance 250 300 Intake: Oral 250 300 Other: Voiding Method Toilet Toilet # Voids 2 1 - Exam right toe wound vac in place, no tenderness to palpation. palpable dp pulse right foot. - Labs CBC & Chem 7: 04/21/19 06:40 04/21/19 06:40 Labs: Abnormal Lab Results - Last 24 Hours (Table) 04/21/19 04/21/19 04/21/19 Range/Units 11:41 17:20 20:23 POC Glucose (mg/dL) 267 H 161 H 175 H (75-99) mg/dL 04/22/19 Range/Units 07:23 POC Glucose (mg/dL) 177 H (75-99) mg/dL Microbiology - Last 24 Hours (Table) 04/15/19 16:40 Blood Culture - Final Blood No Growth after 144 hours 04/17/19 11:10 Anaerobic Culture - Final Toe - Right First 04/17/19 11:12 Anaerobic Culture - Final Other - Other Assessment and Plan Assessment: 1. Right great toe gangrene s/p amputation and wound vac placement 2. right plantar diabetic foot ulcer 3. diabetes 4. diabetic neuropathy 5. diabetic retinopathy with blindness 6. HTN Plan: continue wound vac therapy upon discharge. Ok for d/c from vascular standpoint.
--- NOTE | 2019-04-22 10:03 | P.DS ---
Providers Date of admission: 04/15/19 16:52 Expected date of discharge: 04/22/19 Attending physician: Inocente Corea MD Consults: 04/15/19 16:52 Consult Physician Routine Consulting Provider: Stevan Kimbrough Consult Reason/Comments: foot ulcer Do you want consulting provider notified?: Yes Primary care physician: Inocente Corea MD Hospital Course: Final Diagnoses: Current Visit: Yes Status: Acute Code(s): L03.031 - CELLULITIS OF RIGHT TOE SNOMED Code(s): 64035174 (2) Diabetic ulcer of right foot Current Visit: Yes Status: Acute Code(s): E11.621 - TYPE 2 DIABETES MELLITUS WITH FOOT ULCER; L97.519 - NON-PRS CHRONIC ULCER OTH PRT RIGHT FOOT W UNSP SEVERITY SNOMED Code(s): 157552155 (3) Dry gangrene Current Visit: Yes Status: Acute Code(s): I96 - GANGRENE, NOT ELSEWHERE CLASSIFIED SNOMED Code(s): 689570719 (4) Type 2 diabetes mellitus Current Visit: Yes Status: Acute Code(s): E11.9 - TYPE 2 DIABETES MELLITUS WITHOUT COMPLICATIONS SNOMED Code(s): 43081440 (5) Morbid obesity with BMI of 40.0-44.9, adult Current Visit: No Status: Acute Code(s): E66.01 - MORBID (SEVERE) OBESITY DUE TO EXCESS CALORIES; Z68.41 - BODY MASS INDEX (BMI) 40.0-44.9, ADULT SNOMED Code(s): 662911463 Hospital course:41-year-old female with past medical history significant for type 2 diabetes with neuropathy, hypertension, hyperlipidemia, admitted to the hospital with diabetic ulcer right foot along with gangrene and cellulitis right great toe; patient is status post Right first toe ray amputation; POD #3 04/20/2019 Patient seen and evaluated in the room at bedside; blood sugars are somewhat improved compared to yesterday; patient is quite irritable since she has not been evaluated by surgery service Vital signs are reviewed; temperature of 98.9, pulse 80, respirations 16 and blood pressure 125/80 Lab review is significant for an improvement in white blood count at 10.7; hemoglobin remained stable at 10.0; sodium of 137, potassium 4.3 and improved B UN/creatinine of from 29/2.06 yesterday to 32.938 this morning Continue with IV Zosyn and vancomycin and local wound care along with wound VAC; further recommendations per vascular service 04/21. Wound vac in place with very little serosanguinous drainage. She states her toe will ache a little after walking on it but overall is feeling well. Denies fevers, chills. Significant clinical improvement. Cleared by vascular surgery for discharge. Patient will be discharged home in stable condition with guarded prognosis. DC Wound care as per vascular surgery. - Exam General: Alert and oriented 3, no acute distress. Derm: R great toe s/p amputation with wound vac in place Cardiovascular: S1S2 reg, no murmur, diminished posterior tibial pulse bilateral Lungs: CTA bilateral, no rhonchi, no rales , no accessory muscle use Abdominal: soft, nontender to palpation, no guarding, no appreciable organomegaly The impression and plan of care has been dictated as directed. : I performed a history and examination of this patient, discussed the same with the dictator. I agree with the dictator's note ,documented as a scribe. Any additional findings or plans will be noted. Time taken: 35 minutes Patient Condition at Discharge: Stable Plan - Discharge Summary Discharge Rx Participant: No New Discharge Prescriptions: New Amoxicillin/Potassium Clav [Augmentin 875-125 Tablet] 1 tab PO BID #20 tab Insulin Aspart [NovoLOG Flexpen] 0 units SQ ACHS #1 pen HYDROcodone/APAP 5-325MG [[place] 5-325] 1 each PO Q4HR PRN #18 tab PRN Reason: Pain Continue Atorvastatin [Lipitor] 20 mg PO DAILY Lisinopril-Hctz 10-12.5 mg [Zestoretic 10-12.5] 1 tab PO BID amLODIPine [Norvasc] 2.5 mg PO DAILY Metoprolol Succinate [Toprol XL] 100 mg PO DAILY Dulaglutide [Trulicity] 0.75 mg SQ TH Changed Insulin Aspart [NovoLOG Flexpen] 15 units SQ AC-TID #0 Discharge Medication List Atorvastatin [Lipitor] 20 mg PO DAILY 01/11/15 [History] Lisinopril-Hctz 10-12.5 mg [Zestoretic 10-12.5] 1 tab PO BID 09/13/17 [History] Dulaglutide [Trulicity] 0.75 mg SQ TH 04/15/19 [History] Metoprolol Succinate [Toprol XL] 100 mg PO DAILY 04/15/19 [History] amLODIPine [Norvasc] 2.5 mg PO DAILY 04/15/19 [History] Amoxicillin/Potassium Clav [Augmentin 875-125 Tablet] 1 tab PO BID #20 tab 04/22/19 [Rx] HYDROcodone/APAP 5-325MG [[place] 5-325] 1 each PO Q4HR PRN #18 tab 04/22/19 [Rx] Insulin Aspart [NovoLOG Flexpen] 0 units SQ ACHS #1 pen 04/22/19 [Rx] Insulin Aspart [NovoLOG Flexpen] 15 units SQ AC-TID #0 04/22/19 [Rx] Follow up Appointment(s)/Referral(s): Inocente Corea MD [Primary Care Provider] - 1 Week Maria Elena Macias DO [STAFF PHYSICIAN] - 1 Week [facility], [NON-STAFF] - [facility] [NON-STAFF] - 1 Week (Call for appointment for wound management.) Ambulatory/Diagnostic Orders: Complete Blood Count w/diff [LAB.AMB] Time Frame: 3 Days, Location: None Selected Activity/Diet/Wound Care/Special Instructions: Wound care as per surgery [employer] Equipment: wound vac will be delivered to bedside prior to discharge. Please call [phone] for questions or problems with the wound vac.
[2019-04-22] MEDS: COLLAGENASE 250 UNIT/GM OINTMENT 30 GM TUBE TOPICAL SCH (11:27)
[2019-04-22 12:15] LABS: Glucose,Whole Blood 174 mg/dL (75-99)
[2019-04-22] MEDS ORDERED: VANCOMYCIN TROUGH DUE 1 EACH MISC MISCELLANE ONE (13:00)
[2019-04-22] MEDS: VANCOMYCIN 2,000 MG in SODIUM CHLORIDE 0.9% 500 ML 500 ML IVPB SCH (16:26)
--- NOTE | 2019-04-24 10:09 | CDI ---
Documentation Clarification Form Date: 04/24/2019 From: Nilam Day Phone: If questions call Isis Pelaez @ [phone], Hours-8:30 am & 5 pm M- F Admit Date: 04/15/2019 4:52:00 PM Patient Name: Sharmaine Chirstine Visit Number: [id number] Discharge Date: 04/22/2019 4:45:00 PM ATTENTION: The Clinical Documentation Specialists (CDI) and [facility] Coding Staff appreciate your assistance in clarifying documentation. Please respond to the clarification below the line at the bottom and electronically sign. The CDI & [facility] Coding staff will review the response and follow-up if needed. Please note: Queries are made part of the Legal Health Record. If you have any questions, please contact the author of this message via ITS. Dr. Inocente Corea The final diagnosis of the pathology report states: Right Great Toe, amputation: Ulceration with ischemic necrosis, gangrene and osteomyelitis Documentation states: Per surgical consult "no overt evidence of osteomyelitis" Patient history/risk factors: Diabetic Clinical Indicators: Grade IV foot ulcer and toe ulcer w gangrene Treatment: Right first toe ray amputation In your professional opinion, do you agree with the pathology report? Osteomyelitis, acute Osteomyelitis, chronic Osteomyelitis ruled out Other (please specify) Unable to determine Osteomyelitis, acute MTDD
== END 2019-04-22 16:45 | disposition home health service (06) | DRG 240 ==
LOC: EC 16:04 → 4MS4W 16:52 → 3SCARD 18:06 → 4SSUR 04-16 17:38
PROVIDERS: ADMIT Family Medicine; ATTEND Family Medicine
PROC: 0Y6M0Z9 Detachment at Right Foot, Partial 1st Ray, Open Approach (ICD-10-PCS; principal; 2019-04-17 11:00)
DX: E11.52 Type 2 diabetes mellitus with diabetic peripheral angiopathy with gangrene (principal); I96 Gangrene, not elsewhere classified; L97.515 Non-pressure chronic ulcer of other part of right foot with muscle involvement without evidence of necrosis; Z68.41 Body mass index [BMI] 40.0-44.9, adult; M86.171 Other acute osteomyelitis, right ankle and foot; E11.69 Type 2 diabetes mellitus with other specified complication; Z66 Do not resuscitate; E11.40 Type 2 diabetes mellitus with diabetic neuropathy, unspecified; E66.01 Morbid (severe) obesity due to excess calories; E11.621 Type 2 diabetes mellitus with foot ulcer; E11.65 Type 2 diabetes mellitus with hyperglycemia; E11.319 Type 2 diabetes mellitus with unspecified diabetic retinopathy without macular edema; L03.031 Cellulitis of right toe; L97.519 Non-pressure chronic ulcer of other part of right foot with unspecified severity; H54.8 Legal blindness, as defined in USA; I10 Essential (primary) hypertension; F17.210 Nicotine dependence, cigarettes, uncomplicated; Z71.6 Tobacco abuse counseling; Z79.4 Long term (current) use of insulin; Z79.899 Other long term (current) drug therapy; E78.5 Hyperlipidemia, unspecified; Z90.49 Acquired absence of other specified parts of digestive tract; Z98.890 Other specified postprocedural states; Z90.721 Acquired absence of ovaries, unilateral; Z83.3 Family history of diabetes mellitus; Z82.5 Family history of asthma and other chronic lower respiratory diseases; Z83.6 Family history of other diseases of the respiratory system; Z82.3 Family history of stroke; Z82.49 Family history of ischemic heart disease and other diseases of the circulatory system
CPT/HCPCS: 36415; 80048; 80053; 80202; 81025; 83036; 83605; 83735; 83880; 84100; 84484; 85025; 85610; 85730; 87040; 87070; 87075; 87205; 88305; 93005; 94760; 96361; 96365; 99285

== ENCOUNTER → 2022-12-29 | Outpatient (CLI) | payer MEDICARE, OTHER ==
--- NOTE | 2023-01-01 08:07 | MM ---
Reason for Exam: Screening (asymptomatic). Patient History: Menarche at age 12. First Full-Term at age 24. Left ovary removed at age 27. Postmenopausal. Risk Values: Simona 5 year model risk: 1.0%. NCI Lifetime model risk: 8.7%. Tissue Density: There are scattered fibroglandular densities. Findings: Analyzed By CAD. There is no suspicious group of microcalcifications or new suspicious mass in either breast. Overall Assessment: Benign, BI-RAD 2 Management: Screening Mammogram of both breasts in 1 year. . Patient should continue monthly self-breast exams. A clinical breast exam by your physician is recommended on an annual basis. This exam should not preclude additional follow-up of suspicious palpable abnormalities. Note on Simona scores and lifetime risk: 1. A Simona score greater than 3% is considered moderate risk. If this is the case, consider specialist referral to assess eligibility for a risk reducing agent. 2. If overall lifetime risk for the development of breast cancer is 20% or higher, the patient may qualify for future screening with alternating mammogram and breast MRI. Electronically signed and approved by: Santos Haines M.D. Radiologis
== END | disposition home or self-care (01) ==
LOC: RADMAMWWP 09:32
PROVIDERS: ATTEND Family Medicine
DX: Z12.31 Encounter for screening mammogram for malignant neoplasm of breast (principal); Z78.0 Asymptomatic menopausal state
CPT/HCPCS: 77063; 77067

== ENCOUNTER 2024-02-04 15:59 | Inpatient (IN) | payer MEDICARE, OTHER ==
--- NOTE | 2024-02-04 16:18 | ED ---
General Adult HPI - General Chief complaint: Shortness of Breath Stated complaint: Dyspnea Time Seen by Provider: 02/04/24 16:06 Source: patient, EMS, RN notes reviewed Mode of arrival: EMS Limitations: no limitations - History of Present Illness Initial comments: Patient is a 53-year-old female presenting to the emergency department with concerns with shortness of breath. Symptoms have progressed over the past 5 days. Patient does have leg edema which is new for her. No calf pain. Patient did have some mild chest heaviness earlier. No significant cough. Patient does have history of COPD and is a heavy smoker, just quit 5 days ago. - Related Data Home Medications Medication Instructions Recorded Confirmed Atorvastatin [Lipitor] 20 mg PO DAILY 01/11/15 02/04/24 Metoprolol Succinate [Toprol XL] 100 mg PO DAILY 04/15/19 02/04/24 Furosemide [Lasix] 20 mg PO DAILY 02/04/24 02/04/24 Glimepiride [Amaryl] 4 mg PO DAILY 02/04/24 02/04/24 QUEtiapine [SEROquel] 50 mg PO HS 02/04/24 02/04/24 lisinopriL [Zestril] 10 mg PO DAILY 02/04/24 02/04/24 Allergies Allergy/AdvReac Type Severity Reaction Status Date / Time No Known Allergies Allergy Verified 02/04/24 18:08 Review of Systems ROS Statement: Those systems with pertinent positive or pertinent negative responses have been documented in the HPI. ROS Other: All systems not noted in ROS Statement are negative. Constitutional: Denies: fever Eyes: Denies: eye pain ENT: Denies: ear pain Respiratory: Reports: as per HPI, dyspnea. 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 History of Any Multi-Drug Resistant Organisms: None Reported Past Surgical History: Adenoidectomy, Cholecystectomy, Tonsillectomy Additional Past Surgical History / Comment(s): BENIGN TUMOR & LT OVARY REMOVED, 01/19/15 COLD KNIFE CONE FOR ABNORMAL CERVICAL CELLS, COLONOSCOPY. Past Anesthesia/Blood Transfusion Reactions: No Reported Reaction Past Psychological History: No Psychological Hx Reported Past Alcohol Use History: None Reported Past Drug Use History: Marijuana - Past Family History Father Family Medical History: Diabetes Mellitus Mother Family Medical History: Asthma, Pneumonia Additional Family Medical History / Comment(s): "BREATHING PROBLEMS" General Exam Limitations: no limitations General appearance: alert, in no apparent distress Head exam: Present: normocephalic Eye exam: Present: normal appearance Neck exam: Present: normal inspection Respiratory exam: Present: wheezes, decreased breath sounds Cardiovascular Exam: Present: regular rate, normal rhythm GI/Abdominal exam: Present: soft. Absent: tenderness Extremities exam: Present: pedal edema (2+ bilateral). Absent: calf tenderness Neurological exam: Present: alert Psychiatric exam: Present: normal affect, normal mood Skin exam: Present: normal color Course Vital Signs 02/04/24 02/04/24 02/04/24 16:03 16:43 16:49 Temperature 98.2 F Pulse Rate 86 79 80 Respiratory 22 Rate Blood Pressure 150/77 O2 Sat by Pulse 99 Oximetry EKG Findings - EKG Results: EKG: interpreted by ERMD (Anterior septal Q waves.), sinus rhythm, normal axis, normal ST/T Medical Decision Making - Medical Decision Making Was pt. sent in by a medical professional or institution (PATRIC [place], REGULATORY AFFAIRS COORDINATOR, urgent care, hospital, or shelter...) When possible be specific @ -No Did you speak to anyone other than the patient for history (EMS, parent, family, police, friend...)? What history was obtained from this source @ -No Did you review nursing and triage notes (agree or disagree)? Why? @ -I reviewed and agree with nursing and triage notes Were old charts reviewed (outside hosp., previous admission, EMS record, old EKG, old radiological studies, urgent care reports/EKG's, shelter records)? Report findings @ -No old charts were reviewed Differential Diagnosis (chest pain, altered mental status, abdominal pain women, abdominal pain men, vaginal bleeding, weakness, fever, dyspnea, syncope, headache, dizziness, GI bleed, back pain, seizure, CVA, palpatations, mental health, musculoskeletal)? @ -Differential Dyspnea: Coronary syndrome, arrhythmia, tamponade, asthma, COPD, pulmonary embolism, pneumonia, pneumothorax, pulmonary effusion, anaphylaxis, diabetic ketoacidosis, flailed chest, pulmonary contusion, diaphragmatic rupture, anemia, neuromuscular, this is not meant to be an all-inclusive list. EKG interpreted by me (3pts min.). @ -As above X-rays interpreted by me (1pt min.). @ -Chest x-ray shows left effusion CT interpreted by me (1pt min.). @ -None done U/S interpreted by me (1pt. min.). @ -None done What testing was considered but not performed or refused? (CT, X-rays, U/S, labs)? Why? @ -None What meds were considered but not given or refused? Why? @ -None Did you discuss the management of the patient with other professionals (professionals i.e. , PA, REGULATORY AFFAIRS COORDINATOR, lab, RT, psych nurse, protective services social worker, culture room worker, teacher, railroad police officer, patient case coordinator)? Give summary @ -Case was discussed with Dr. Corea who will admit his patient Was smoking cessation discussed for >3mins.? @ -No Was critical care preformed (if so, how long)? @ -No Were there social determinants of health that impacted care today? How? (Homelessness, low income, unemployed, alcoholism, drug addiction, transportation, low edu. Level, literacy, decrease access to med. care, detention, rehab)? @ -No Was there de-escalation of care discussed even if they declined (Discuss DNR or withdrawal of care, Hospice)? DNR status @ -No What co-morbidities impacted this encounter? (DM, HTN, Smoking, COPD, CAD, Cancer, CVA, ARF, Chemo, Hep., AIDS, mental health diagnosis, sleep apnea, morbid obesity)? @ -None Was patient admitted / discharged? Hospital course, mention meds given and route, prescriptions, significant lab abnormalities, going to OR and other pertinent info. @ -Patient presents with leg edema and dyspnea, evaluation concerning for CHF. Patient will be admitted with cardiac consult. Admission orders written Undiagnosed new problem with uncertain prognosis? @ -No Drug Therapy requiring intensive monitoring for toxicity (Heparin, Nitro, Insulin, Cardizem)? @ -No Were any procedures done? @ -No Diagnosis/symptom? @ -CHF Acute, or Chronic, or Acute on Chronic? @ -Acute Uncomplicated (without systemic symptoms) or Complicated (systemic symptoms)? @ -Default Side effects of treatment? @ -No Exacerbation, Progression, or Severe Exacerbation? @ -No Poses a threat to life or bodily function? How? (Chest pain, USA, SC, pneumonia, PE, COPD, DKA, ARF, appy, cholecystitis, CVA, Diverticulitis, Homicidal, [place] icidal, threat to staff... and all critical care pts) @ -No - Lab Data Result diagrams: 02/04/24 16:32 02/04/24 16:32 Lab Results 02/04/24 02/04/24 02/04/24 Range/Units 16:32 16:32 16:32 WBC 6.3 (3.8-10.6) k/uL RBC 3.51 L (3.80-5.40) m/uL Hgb 9.2 L (11.4-16.0) gm/dL Hct 30.5 L (34.0-46.0) % MCV 86.8 (80.0-100.0) fL MCH 26.3 (25.0-35.0) pg MCHC 30.2 L (31.0-37.0) g/dL RDW 17.3 H (11.5-15.5) % Plt Count 292 (150-450) k/uL MPV 8.3 Neutrophils % 75 % Lymphocytes % 14 % Monocytes % 5 % Eosinophils % 4 % Basophils % 1 % Neutrophils # 4.7 (1.3-7.7) k/uL Lymphocytes # 0.9 L (1.0-4.8) k/uL Monocytes # 0.3 (0-1.0) k/uL Eosinophils # 0.2 (0-0.7) k/uL Basophils # 0.0 (0-0.2) k/uL Hypochromasia Slight Anisocytosis Slight PT 10.8 (10.0-12.5) sec INR 1.0 (<1.2) APTT 27.5 (22.0-30.0) sec D-Dimer 1.54 H (<0.60) mg/L FEU Sodium 137 (137-145) mmol/L Potassium 3.8 (3.5-5.1) mmol/L Chloride 110 H (98-107) mmol/L Carbon Dioxide 19 L (22-30) mmol/L Anion Gap 8 mmol/L BUN 21 H (7-17) mg/dL Creatinine 1.95 H (0.52-1.04) mg/dL Est GFR (CKD-EPI)AfAm 33 (>60 ml/min/1.73 sqM) Est GFR (CKD-EPI)NonAf 29 (>60 ml/min/1.73 sqM) Glucose 245 H (74-99) mg/dL Plasma Lactic Acid Mike (0.7-2.0) mmol/L Calcium 9.0 (8.4-10.2) mg/dL Magnesium 1.8 (1.6-2.3) mg/dL Total Bilirubin 1.1 (0.2-1.3) mg/dL AST 22 (14-36) U/L ALT 13 (4-34) U/L Alkaline Phosphatase 88 (38-126) U/L Troponin I (0.000-0.034) ng/mL NT-Pro-B Natriuret Pep 9930 pg/mL Total Protein 6.0 L (6.3-8.2) g/dL Albumin 3.3 L (3.5-5.0) g/dL 02/04/24 02/04/24 Range/Units 16:32 16:32 WBC (3.8-10.6) k/uL RBC (3.80-5.40) m/uL Hgb (11.4-16.0) gm/dL Hct (34.0-46.0) % MCV (80.0-100.0) fL MCH (25.0-35.0) pg MCHC (31.0-37.0) g/dL RDW (11.5-15.5) % Plt Count (150-450) k/uL MPV Neutrophils % % Lymphocytes % % Monocytes % % Eosinophils % % Basophils % % Neutrophils # (1.3-7.7) k/uL Lymphocytes # (1.0-4.8) k/uL Monocytes # (0-1.0) k/uL Eosinophils # (0-0.7) k/uL Basophils # (0-0.2) k/uL Hypochromasia Anisocytosis PT (10.0-12.5) sec INR (<1.2) APTT (22.0-30.0) sec D-Dimer (<0.60) mg/L FEU Sodium (137-145) mmol/L Potassium (3.5-5.1) mmol/L Chloride (98-107) mmol/L Carbon Dioxide (22-30) mmol/L Anion Gap mmol/L BUN (7-17) mg/dL Creatinine (0.52-1.04) mg/dL Est GFR (CKD-EPI)AfAm (>60 ml/min/1.73 sqM) Est GFR (CKD-EPI)NonAf (>60 ml/min/1.73 sqM) Glucose (74-99) mg/dL Plasma Lactic Acid Mike 1.4 (0.7-2.0) mmol/L Calcium (8.4-10.2) mg/dL Magnesium (1.6-2.3) mg/dL Total Bilirubin (0.2-1.3) mg/dL AST (14-36) U/L ALT (4-34) U/L Alkaline Phosphatase (38-126) U/L Troponin I 0.021 (0.000-0.034) ng/mL NT-Pro-B Natriuret Pep pg/mL Total Protein (6.3-8.2) g/dL Albumin (3.5-5.0) g/dL Disposition Clinical Impression: Congestive heart failure Disposition: ADMITTED IP TO THIS HOSP Is patient prescribed a controlled substance at d/c from ED?: No Referrals: Inocente Corea MD [Primary Care Provider] - 1-2 days Time of Disposition: 18:32
[2024-02-04] MEDS: IPRATROPIUM-ALBUTEROL 3 ML NEB INHALATION STA (16:43)
[2024-02-04 17:02] LABS: Anisocytosis Slight; Basophils % (A) 1 %; Eosinophils # (A) 0.2 k/uL (0-0.7); Eosinophils % (A) 4 %; HCT 30.5 % (34.0-46.0); HGB 9.2 gm/dL (11.4-16.0); Hypochromasia Slight; Lymphocytes # (A) 0.9 k/uL (1.0-4.8); Lymphocytes % (A) 14 %; MCH 26.3 pg (25.0-35.0); MCHC 30.2 g/dL (31.0-37.0); MCV 86.8 fL (80.0-100.0); Mean Platelet Volume 8.3; Monocytes # (A) 0.3 k/uL (0-1.0); Monocytes % (A) 5 %; Neutrophils # (A) 4.7 k/uL (1.3-7.7); Neutrophils % (A) 75 %; Platelet Count 292 k/uL (150-450); RBC 3.51 m/uL (3.80-5.40); RDW 17.3 % (11.5-15.5); WBC 6.3 k/uL (3.8-10.6)
[2024-02-04 17:16] LABS: ALT 13 U/L (4-34); AST 22 U/L (14-36); African American GFR (CKD) 33 (>60 ml/min/1.73 sqM); Albumin 3.3 g/dL (3.5-5.0); Alkaline Phosphatase 88 U/L (38-126); Anion Gap 8 mmol/L; Blood Urea Nitrogen 21 mg/dL (7-17); Carbon Dioxide 19 mmol/L (22-30); Chloride 110 mmol/L (98-107); Glucose 245 mg/dL (74-99); Magnesium 1.8 mg/dL (1.6-2.3); Non-African American GFR(CKD) 29 (>60 ml/min/1.73 sqM); Potassium 3.8 mmol/L (3.5-5.1); Sodium 137 mmol/L (137-145); Total Bilirubin 1.1 mg/dL (0.2-1.3)
[2024-02-04 17:22] LABS: Partial Thromboplastin Time 27.5 sec (22.0-30.0); Prothrombin Time 10.8 sec (10.0-12.5)
[2024-02-04 17:24] LABS: NT-Pro-B-Type Natriuretic Pept 9930 pg/mL
[2024-02-04] MEDS: FUROSEMIDE 10 MG/ML 4 ML VIAL IV SCH (18:30)
--- NOTE | 2024-02-04 18:55 | XR ---
EXAMINATION TYPE: XR chest 2V DATE OF EXAM: 02/04/2024 5:00 PM CLINICAL INDICATION:Female, 53 years old with history of difficulty breathing; [facility] COMPARISON: None TECHNIQUE: XR chest 2V Frontal and lateral views of the chest. FINDINGS: Lungs/Pleura: There is no evidence of pleural effusion, focal consolidation, or pneumothorax. Pulmonary vascularity: Unremarkable. Heart/mediastinum: Cardiomediastinal silhouette is unremarkable. Musculoskeletal: No acute osseous pathology. IMPRESSION: Pulmonary vascular congestion and bilateral pleural effusions. Correlate with BNP for congestive hear t failure.
[2024-02-04] MEDS: ASPIRIN 325 MG TAB PO STA (19:50)
[2024-02-04] MEDS: QUEtiapine 50 MG TAB PO SCH (23:45)
[2024-02-05] MEDS ORDERED: DEXTROSE 50% SYRINGE 50 ML IVP PRN ×2 (08:35)
[2024-02-05] MEDS ORDERED: ASPIRIN 325 MG TAB PO SCH (09:00)
[2024-02-05] MEDS ORDERED: ATORVASTATIN 20 MG TAB PO SCH (09:00)
[2024-02-05] MEDS ORDERED: METOPROLOL SUCCINATE (ER) 100 MG TAB.ER.24H PO SCH (09:00)
[2024-02-05] MEDS: ASPIRIN 81 MG PO SCH (10:24)
[2024-02-05] MEDS: METOPROLOL SUCCINATE (ER) 50 MG TAB.ER.24H PO SCH (10:24)
[2024-02-05] MEDS: ATORVASTATIN 40 MG TAB PO SCH (10:24)
[2024-02-05] MEDS: lisinopriL 10 MG TAB PO SCH (10:24)
[2024-02-05] MEDS: FUROSEMIDE 10 MG/ML 4 ML VIAL IV SCH (10:26)
--- NOTE | 2024-02-05 10:43 | P.CRDCN ---
History of Present Illness Consult date: 02/05/24 Reason for Consult (text): Acute hypoxic respiratory failure, acute exacerbation of CHF History of present illness: This is a 53-year-old female with past medical history of hypertension, hyperlipidemia, diabetes mellitus type 2, blindness secondary to diabetic retinopathy, diabetic neuropathy, tobacco use and dependence. Patient denies having any cardiac history and does not follow with a gizzard skin remover. We have been asked to evaluate the patient for CHF. Patient states that she has had some shortness of breath for the last couple of days and felt like somebody is sitting on her chest. She states when she stood to walk from the bed to the bathroom she had to stop on her way and wait a few minutes before she could continue. Patient states that she quit smoking 1 week ago but still smells of smoke. Discussed recommendations for left heart cath to be done in the next couple days when her kidneys and shortness of breath are improved but patient flatly refuses. She also r stating that she will not take cardiac medications as she does not have any heart problems. Patient is seen today in the emergency center waiting for bed on the cardiac stepdown unit. EKG: Sinus rhythm Chest x-ray: Pulmonary vascular congestion and bilateral pleural effusions. Laboratory studies: WBC 6.3, hemoglobin 9.2, platelet count 292. D-dimer 1.54. Sodium 137, potassium 3.8, CO2 19, BUN 21 creatinine 1.95. Glucose 245. Troponin negative x 1. proBNP 9930. Home cardiac medications: Atorvastatin 20 mg daily, Lasix 20 mg daily, lisinopril 10 mg daily, Toprol-XL 100 mg daily Review Of Systems: At the time of my exam: CONSTITUTIONAL: Denies fever or chills. HEENT: Denies blurred vision, vision changes, or eye pain. Denies hemoptysis CARDIOVASCULAR: Denies chest pain. Denies orthopnea. Denies PND. Denies palpitations RESPIRATORY: Reports dyspnea on exertion. Reports shortness of breath. GASTROINTESTINAL: Denies abdominal pain. Denies nausea or vomiting. HEMATOLOGIC: Denies bleeding disorders. GENITOURINARY: Denies any blood in urine. SKIN: Denies puritis. Denies rash. Physical examination: Gen: This is a obese 53-year-old female in no acute respiratory distress VS: reviewed, blood pressure 126/65, heart rate 78, pulse ox 97% on room air. HEENT: Head is atraumatic, normocephalic. Pupils equal, round. Sclerae is anicteric. NECK: Supple. No JVD. LUNGS: Clear to auscultation. No wheezes or rhonchi. No intercostal retract ions. HEART: Regular rate and rhythm. No murmur. ABDOMEN: Soft No tenderness. EXTREMITIES: No pedal edema. No calf tenderness. NEUROLOGICAL: Patient is awake, alert and oriented x3. Assessment: Acute heart failure, unknown type Dyspnea on exertion Chronic kidney disease stage III-IV Diabetes mellitus type 2 Hypertension Hyperlipidemia Blindness Tobacco use and dependence Plan: Resume patient's home cardiac medications with the following changes: Increase atorvastatin to 40 mg daily Decrease Lasix to 40 mg twice daily IV Discontinue Nitropaste Decrease Toprol-XL to 50 mg daily Obtain 2-D echocardiogram and Doppler study to assess cardiac structure and function Further recommendations to follow based upon clinical course Smoking cessation. Patient will be provided the [place] quit line information referral at discharge. Recommend nephrology consult Thank you kindly for this consultation. Nurse practitioner note has been reviewed, I agree with documented findings and plan of care. Patient was seen and examined. 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 History of Any Multi-Drug Resistant Organisms: None Reported Past Surgical History: Adenoidectomy, Cholecystectomy, Tonsillectomy Additional Past Surgical History / Comment(s): BENIGN TUMOR & LT OVARY REMOVED, 01/19/15 COLD KNIFE CONE FOR ABNORMAL CERVICAL CELLS, COLONOSCOPY. Past Anesthesia/Blood Transfusion Reactions: No Reported Reaction Past Psychological History: No Psychological Hx Reported Past Alcohol Use History: None Reported Past Drug Use History: Marijuana - Past Family History Father Family Medical History: Diabetes Mellitus Mother Family Medical History: Asthma, Pneumonia Additional Family Medical History / Comment(s): "BREATHING PROBLEMS" Medications and Allergies Home Medications Medication Instructions Recorded Confirmed Type Atorvastatin [Lipitor] 20 mg PO DAILY 01/11/15 02/04/24 History Metoprolol Succinate [Toprol XL] 100 mg PO DAILY 04/15/19 02/04/24 History Furosemide [Lasix] 20 mg PO DAILY 02/04/24 02/04/24 History Glimepiride [Amaryl] 4 mg PO DAILY 02/04/24 02/04/24 History QUEtiapine [SEROquel] 50 mg PO HS 02/04/24 02/04/24 History lisinopriL [Zestril] 10 mg PO DAILY 02/04/24 02/04/24 History Allergies Allergy/AdvReac Type Severity Reaction Status Date / Time No Known Allergies Allergy Verified 02/04/24 18:08 Physical Exam Vitals: Vital Signs Temp Pulse Resp BP Pulse Ox 02/05/24 06:59 98.2 F 78 15 126/65 97 02/05/24 04:30 72 15 96 02/05/24 02:41 80 18 136/85 97 02/04/24 23:00 74 18 128/70 96 02/04/24 20:04 76 18 128/60 98 02/04/24 18:38 90 18 125/80 97 02/04/24 16:49 80 02/04/24 16:43 79 02/04/24 16:03 98.2 F 86 22 150/77 99 Intake and Output 02/04/24 02/05/24 02/05/24 22:59 06:59 14:59 Other: Weight 117.934 kg Results 02/04/24 16:32 02/04/24 16:32 Cardiac Enzymes 02/04/24 02/04/24 Range/Units 16:32 16:32 AST 22 (14-36) U/L Troponin I 0.021 (0.000-0.034) ng/mL Coagulation 02/04/24 Range/Units 16:32 PT 10.8 (10.0-12.5) sec APTT 27.5 (22.0-30.0) sec CBC 02/04/24 Range/Units 16:32 WBC 6.3 (3.8-10.6) k/uL RBC 3.51 L (3.80-5.40) m/uL Hgb 9.2 L (11.4-16.0) gm/dL Hct 30.5 L (34.0-46.0) % Plt Count 292 (150-450) k/uL Comprehensive Metabolic Panel 02/04/24 Range/Units 16:32 Sodium 137 (137-145) mmol/L Potassium 3.8 (3.5-5.1) mmol/L Chloride 110 H (98-107) mmol/L Carbon Dioxide 19 L (22-30) mmol/L BUN 21 H (7-17) mg/dL Creatinine 1.95 H (0.52-1.04) mg/dL Glucose 245 H (74-99) mg/dL Calcium 9.0 (8.4-10.2) mg/dL AST 22 (14-36) U/L ALT 13 (4-34) U/L Alkaline Phosphatase 88 (38-126) U/L Total Protein 6.0 L (6.3-8.2) g/dL Albumin 3.3 L (3.5-5.0) g/dL Current Medications Generic Name Dose Route Start Last Admin Trade Name Freq PRN Reason Stop Dose Admin Aspirin 325 mg 02/05/24 09:00 Aspirin 325 Mg Tab PO DAILY [facility] Atorvastatin Calcium 20 mg 02/05/24 09:00 Atorvastatin 20 Mg Tab PO DAILY [facility] Furosemide 40 mg 02/04/24 19:00 02/05/24 02:50 Furosemide 10 Mg/Ml 4 Ml Vial IV 40 mg Q8H ELENA Administration Glimepiride 4 mg 02/05/24 09:00 Glimepiride 4 Mg Tab PO DAILY [facility] Lisinopril 10 mg 02/05/24 09:00 Lisinopril 10 Mg Tab PO DAILY [facility] Metoprolol Succinate 100 mg 02/05/24 09:00 Metoprolol Succinate (Er) 100 Mg Tab.Er.24h PO DAILY [facility] Nitroglycerin 1 inch 02/05/24 22:00 Nitroglycerin Oint 1 Inch/Gm Packet TOPICAL QID [facility] Quetiapine Fumarate 50 mg 02/04/24 21:00 02/04/24 23:45 Quetiapine 50 Mg Tab PO 50 mg HS [facility] Administration Intake and Output 02/04/24 02/05/24 02/05/24 22:59 06:59 14:59 Other: Weight 117.934 kg 02/04/24 16:32 02/04/24 16:32
--- NOTE | 2024-02-05 10:59 | CA ---
Transthoracic Echo Report Name: Sharmaine Christine Age: 53 Gender: F : 1970 Exam Date: 02/05/2024 08:03 Exam Location: [facility] Ht (in): 68 Wt (lb): 260 Ordering Physician: Michael Avelar DO Attending/Referring Phys: Pilot Plant Operator Helper Devorah Alicea RDCS Procedure CPT: Indications: Heart failure Cardiac Hx: Technical Quality: Technically difficult study Contrast 1: Definity Total Dose (mL): 2 Contrast 2: Total Dose (mL): MEASUREMENTS (Male / Female) Normal Values 2D ECHO LV Diastolic Diameter PLAX 6.6 cm 4.2 - 5.9 / 3.9 - 5.3 cm LV Systolic Diameter PLAX 3.3 cm IVS Diastolic Thickness 1.2 cm 0.6 - 1.0 / 0.6 - 0.9 cm LVPW Diastolic Thickness 1.2 cm 0.6 - 1.0 / 0.6 - 0.9 cm LV Relative Wall Thickness 0.4 RV Internal Dim ED PLAX 2.5 cm LA Systolic Diameter LX 3.2 cm 3.0 - 4.0 / 2.7 - 3.8 cm LA Volume 59.4 cm??? 18 - 58 / 22 - 52 cm??? LA Volume Index 24.4 cm???/m??? 16 - 28 cm???/m??? M-MODE Aortic Root Diameter MM 3.0 cm DOPPLER AV Peak Velocity 118.9 cm/s AV Peak Gradient 5.7 mmHg MV Area PHT 3.9 cm??? Mitral E Point Velocity 109.1 cm/s Mitral A Point Velocity 83.1 cm/s Mitral E to A Ratio 1.3 MV Deceleration Time 193.1 ms TR Peak Velocity 270.7 cm/s TR Peak Gradient 29.3 mmHg Right Ventricular Systolic Press 34.3 mmHg FINDINGS Left Ventricle Left ventricular ejection fraction is estimated at 20-25 %. Moderate left ventricular dilatation. Severely reduced global left ventricular systolic function. Mid to distal anterior anteroseptal wall and apical wall hypokinesia. No evidence of LV thrombus. Signs of elevated LA filling pressure Right Ventricle Normal right ventricular size. Mild pulmonary hypertension. Right Atrium Right atrium not well visualized. Left Atrium Mildly increased left atrial volume. Mildly increased left atrial area. Signs of elevated LA filling pressure Mitral Valve Structurally normal mitral valve. Mild mitral regurg Aortic Valve Aortic valve not well visualized. No aortic valve stenosis or regurgitation. Tricuspid Valve Structurally normal tricuspid valve. Mild tricuspid regurgitation. Pulmonic Valve Pulmonic valve not well visualized. No pulmonic regurgitation. Pericardium No pericardial effusion. Aorta Normal size aortic root and proximal ascending aorta. CONCLUSIONS LVEF 20 to 25% Moderate LV cavity dilatation. Severely reduced global systolic function Mid to distal anterior anteroseptal wall and apical wall hypokinesia Normal RV size and systolic function. RVSP 35 mmHg Mild LA dilatation. Signs of elevated LA filling pressure No significant valve dysfunction Previewed by: Dr Rayshawn Tatum (Electronically Signed) Final Date: 05 February 2024 10:58
--- NOTE | 2024-02-05 12:21 | NM ---
EXAMINATION TYPE: NM pul vent and perfuse DATE OF EXAM: 02/05/2024 CLINICAL INDICATION: Female, 53 years old with history of dyspnea; COMPARISON: Radiograph 02/04/2024 TECHNIQUE: Utilizing inhalation of 63.5 mCi Tc 99m DTPA aerosol and intravenous injection of 5.12 mC i of Tc 99m MAA, ventilation and perfusion images are acquired post injection in multiple projections . FINDINGS: Normal radiotracer distribution is noted in the lungs. There is no evidence of mismatched defects. IMPRESSION: Very low probability for pulmonary embolus.
[2024-02-05 14:14] LABS: Glucose,Whole Blood 203 mg/dL (70-110)
[2024-02-05] MEDS: INSULIN ASPART (NovoLOG) 100 UNIT/ML VIAL SQ SCH (14:42)
[2024-02-05] MEDS: GLIMEPIRIDE 4 MG TAB PO SCH (15:10)
--- NOTE | 2024-02-05 16:14 | P.HPIM ---
History of Present Illness H&P Date: 02/05/24 Chief Complaint: Worsening dyspnea This a 53-year-old female with past medical history significant for diabetes mellitus type 2 with diabetic neuropathy and retinopathy-legally blind, morbid obesity-BMI 40, hypertension, hyperlipidemia, COPD, ongoing nicotine dependence, strong family history of vascular disease including heart attacks and CVAs on both sides, presents to the ER with complaints of progressive shortness of breath over the last week, worsened with exertion, accompanied by cough, chest heaviness and bilateral lower extremity edema. Positive orthopnea. reports she quit smoking 1 week ago. Denies nausea vomiting or diarrhea. Denies abdominal pain. Denies bleeding disorders. troponin negative x 1, EKG reported sinus rhythm. chest x-ray reported pulmonary vascular congestion and bilateral pleural effusions. Pro BNP 9930. Afebrile, normal WBC. Hemoglobin 9.2, platelets 292, INR 1, D-dimer 1.54.Creatinine currently 1.95, VQ scan ordered. Bicarb 19, BUN 21. sodium 137, potassium 3.8, magnesium 2. Glucose 245. Evaluated by cardiology, recommending cardiac catheterization. Patient adamantly declining. States she will not proceed with a cardiac catheterization as she relates her parents and grandparents demise to cardiac catheterization complications. Echo ordered. Continues on IV push diuretics, beta-ariana, statin. Review of Systems ROS Statement: Those systems with pertinent positive or pertinent negative responses have been documented in the HPI. ROS Other: All systems not noted in ROS Statement are negative. Past Medical History Past Medical History: Diabetes Mellitus, Eye Disorder, Hyperlipidemia, Hypertension Additional Past Medical History / Comment(s): IDDM type II, blindness d/t diabet es with R eye having only 2% vision, current sore on bottom R foot, bilateral neuropathy hands/feet. History of Any Multi-Drug Resistant Organisms: None Reported Past Surgical History: Adenoidectomy, Cholecystectomy, Tonsillectomy Additional Past Surgical History / Comment(s): BENIGN TUMOR & LT OVARY REMOVED, 01/19/15 COLD KNIFE CONE FOR ABNORMAL CERVICAL CELLS, COLONOSCOPY. Past Anesthesia/Blood Transfusion Reactions: No Reported Reaction Past Psychological History: No Psychological Hx Reported Past Alcohol Use History: None Reported Past Drug Use History: Marijuana - Past Family History Father Family Medical History: Diabetes Mellitus Mother Family Medical History: Asthma, Pneumonia Additional Family Medical History / Comment(s): "BREATHING PROBLEMS" Medications and Allergies Home Medications Medication Instructions Recorded Confirmed Type Atorvastatin [Lipitor] 20 mg PO DAILY 01/11/15 02/04/24 History Metoprolol Succinate [Toprol XL] 100 mg PO DAILY 04/15/19 02/04/24 History Furosemide [Lasix] 20 mg PO DAILY 02/04/24 02/04/24 History Glimepiride [Amaryl] 4 mg PO DAILY 02/04/24 02/04/24 History QUEtiapine [SEROquel] 50 mg PO HS 02/04/24 02/04/24 History lisinopriL [Zestril] 10 mg PO DAILY 02/04/24 02/04/24 History Allergies Allergy/AdvReac Type Severity Reaction Status Date / Time No Known Allergies Allergy Verified 02/04/24 18:08 Physical Exam Vitals: Vital Signs Temp Pulse Resp BP Pulse Ox 02/05/24 10:22 98.8 F 77 20 124/61 02/05/24 08:22 96 02/05/24 06:59 98.2 F 78 15 126/65 97 02/05/24 04:30 72 15 96 02/05/24 02:41 80 18 136/85 97 02/04/24 23:00 74 18 128/70 96 02/04/24 20:04 76 18 128/60 98 02/04/24 18:38 90 18 125/80 97 02/04/24 16:49 80 02/04/24 16:43 79 02/04/24 16:03 98.2 F 86 22 150/77 99 Intake and Output 02/04/24 02/05/24 02/05/24 22:59 06:59 14:59 Other: Weight 117.934 kg PHYSICAL EXAM: VITAL SIGNS: [As above] GENERAL: Morbidly obese female, legally blind, alert and oriented x 3, sitting up on stretcher, no acute distress HEENT: Atraumatic, normocephalic, pupils equal, anicteric sclera. NECK: Supple, no JVD. No thyroid enlargement. No LNs CARDIOVASCULAR: S1, S2 regular.No murmur RESPIRATION: Unlabored equal air entry, essentially clear to auscultation with occasional mild expiratory wheezing. No accessory muscle use. ABDOMEN: Soft, nontender, nondistended. No guarding. no appreciable organomegaly. +BS LEGS: Bilateral lower extremity edema, left greater than right, no calf tenderness. NERVOUS SYSTEM: Cranial N 2-12 grossly normal. Skin: Warm and dry,no rash noted. Results CBC & Chem 7: 02/04/24 16:32 02/04/24 16:32 Labs: Abnormal Lab Results - Last 24 Hours (Table) 02/04/24 02/04/24 02/04/24 Range/Units 16:32 16:32 16:32 RBC 3.51 L (3.80-5.40) m/uL Hgb 9.2 L (11.4-16.0) gm/dL Hct 30.5 L (34.0-46.0) % MCHC 30.2 L (31.0-37.0) g/dL RDW 17.3 H (11.5-15.5) % Lymphocytes # 0.9 L (1.0-4.8) k/uL D-Dimer 1.54 H (<0.60) mg/L FEU Chloride 110 H (98-107) mmol/L Carbon Dioxide 19 L (22-30) mmol/L BUN 21 H (7-17) mg/dL Creatinine 1.95 H (0.52-1.04) mg/dL Glucose 245 H (74-99) mg/dL Total Protein 6.0 L (6.3-8.2) g/dL Albumin 3.3 L (3.5-5.0) g/dL Assessment and Plan Assessment: Acute CHF exacerbation, echo pending Progressive dyspnea on exertion with orthopnea secondary to the above Chronic kidney disease IIIb Anemia of chronic kidney disease Diabetes mellitus type 2, hemoglobin A1c pending Diabetic retinopathy, legally blind Diabetic neuropathy Nicotine dependence, quit 1 week ago Hypertension Hyperlipidemia Strong family history of vascular disease, CAD, VT, CVAs Morbid obesity, BMI 40 Plan: Continue on current medication using ,monitoring and symptomatic treatment. Continue IV push diuretics.close monitoring of renal function, e lectrolytes with repeat labs ordered for a.m. Cardiology recommendations noted and appreciated, including adjustments in patient's statin, diuretics, beta- ariana. Echo pending. Smoking cessation reinforced. Prognosis guarded given multiple complex medical issues. Patient has many risk factors and is high risk for CAD, declining cardiac catheterization. NovoLog sliding scale and Levemir insulin ordered, close monitoring of Accu-Cheks. The impression and plan of care has been dictated as directed. : I performed a history and examination of this patient, discussed the same with the dictator. I agree with the dictator's note ,documented as a scribe. Any additional findings or plans will be noted.
[2024-02-05 17:11] LABS: Glucose,Whole Blood 197 mg/dL (70-110)
[2024-02-05] MEDS: INSULIN DETEMIR (LEVEMIR) 100 UNIT/ML SYR SQ SCH (18:12)
[2024-02-05] MEDS: PANTOPRAZOLE 40 MG/10 ML VIAL IVP SCH (18:31)
[2024-02-05 21:12] LABS: Glucose,Whole Blood 269 mg/dL (70-110)
[2024-02-05] MEDS ORDERED: NITROGLYCERIN OINT 1 INCH/GM PACKET TOPICAL SCH (22:00)
[2024-02-06 05:55] LABS: Glucose,Whole Blood 211 mg/dL (70-110)
[2024-02-06 08:46] LABS: BUN/Creat Ratio 11.24 Ratio (12.00-20.00); Blood Urea Nitrogen 28.1 mg/dL (9.0-27.0); Calcium 8.9 mg/dL (8.7-10.3); Carbon Dioxide 26.3 mmol/L (21.6-31.8); Chloride 105 mmol/L (96-109); Glucose 216 mg/dL (70-110); Potassium 4.1 mmol/L (3.5-5.5); Sodium 142 mmol/L (135-145)
--- NOTE | 2024-02-06 10:11 | P.PN ---
Subjective Progress Note Date: 02/06/24 Reason for Consult (text): Acute hypoxic respiratory failure, acute exacerbation of CHF History of present illness: This is a 53-year-old female with past medical history of hypertension, hyperlipidemia, diabetes mellitus type 2, blindness secondary to diabetic retinopathy, diabetic neuropathy, tobacco use and dependence. Patient denies having any cardiac history and does not follow with a financial operations consultant. We have been asked to evaluate the patient for CHF. Patient states that she has had some shortness of breath for the last couple of days and felt like somebody is sitting on her chest. She states when she stood to walk from the bed to the bathroom she had to stop on her way and wait a few minutes before she could continue. Patient states that she quit smoking 1 week ago but still smells of smoke. Discussed recommendations for left heart cath to be done in the next couple days when her kidneys and shortness of breath are improved but patient flatly refuses. She also r stating that she will not take cardiac medications as she does not have any heart problems. Patient is seen today in the emergency center waiting for bed on the cardiac stepdown unit. EKG: Sinus rhythm Chest x-ray: Pulmonary vascular congestion and bilateral pleural effusions. Laboratory studies: WBC 6.3, hemoglobin 9.2, platelet count 292. D-dimer 1.54. Sodium 137, potassium 3.8, CO2 19, BUN 21 creatinine 1.95. Glucose 245. Troponin negative x 1. proBNP 9930. Home cardiac medications: Atorvastatin 20 mg daily, Lasix 20 mg daily, lisinopril 10 mg daily, Toprol-XL 100 mg daily 02/05 Patient is seen today on the [facility] floor. This morning, patient is now agreeable to undergo cardiac catheterization. She is not sure if she feels any better from yesterday. She is not sure if shortness of breath is improved. She has been maintained on IV Lasix 40 mg twice daily and has had a bump in her creatinine. Electrolytes are normal but BUN is 28 creatinine 2.5. Lasix frequency will be decreased, lisinopril discontinued and noted that nephrology consult was added. Blood pressure 126/74, heart rate 75, pulse ox 98% on room air. Echocardiogram reports EF of 20 to 25%. Moderate LV cavity dilatation. Severely reduced global systolic function. Mild to distal anterior anterior septal wall and apical wall hypokinesia. RVSP 35 mmHg. Mild LA dilatation. Signs of elevated LA filling pressure. No significant valve dysfunction. Discussed results of the echocardiogram with the patient and also results of the blood work. No plan for cardiac catheterization until renal function is improved. Patient will be transferred to the cardiac stepdown unit. Physical examination: Gen: This is a obese 53-year-old female in no acute respiratory distress VS: reviewed HEENT: Head is atraumatic, normocephalic. Pupils equal, round. Sclerae is anicteric. NECK: Supple. No JVD. LUNGS: Clear to auscultation. No wheezes or rhonchi. No intercostal retraction s. HEART: Regular rate and rhythm. No murmur. ABDOMEN: Soft No tenderness. EXTREMITIES: Bilateral pedal edema. No calf tenderness. NEUROLOGICAL: Patient is awake, alert and oriented x3. Assessment: Acute heart failure, reduced EF Cardiomyopathy of unknown type Dyspnea on exertion Acute kidney injury Chronic kidney disease stage III-IV Diabetes mellitus type 2, uncontrolled with A1c 8.2 Hypertension Hyperlipidemia Legally blind from diabetic retinopathy Obesity Tobacco use and dependence Plan: Continue atorvastatin to 40 mg daily, aspirin 81 mg daily, Toprol XL 50 mg daily Discontinue lisinopril Reduce frequency of IV Lasix to 40 mg to once daily Monitor AL, daily weights, electrolytes and renal function Smoking cessation. Patient will be provided the [place] quit line information referral at discharge. Plan for cardiac catheterization once patient's renal function is improved. It appears her creatinine baseline is 1.92. Further recommendations to follow based upon clinical course Nurse practitioner note has been reviewed, I agree with documented findings and plan of care. Patient was seen and examined. Dr Tatum Patient's echocardiogram showed an EF of 20 to 25%. She does have CKD with a creatinine baseline of 1.9. But diuretic regimen her creatinine has jumped up to 2.5. Due to her history of diabetes, obesity and low EF she will need a heart catheterization procedure. Patient is legally blind she also has wishes about not being resuscitated. She has an official DNR/DNI status in chart. She has expressed her wishes of not having any invasive cardiac testing or procedures done. I was able to educate her about cardiac catheterization and sh dayana is willing to consider it. For now we cannot do it as her creatinine is high. Once her creatinine improves this needs to be reevaluated. Objective - Vital Signs Vital signs: Vital Signs Temp 98.1 F 02/06/24 08:00 Pulse 75 02/06/24 08:00 Resp 17 02/06/24 08:00 BP 126/74 02/06/24 08:00 Pulse Ox 98 02/06/24 08:48 FiO2 Intake & Output 02/05/24 02/06/24 02/06/24 18:59 06:59 18:59 Weight 117.934 kg Other: Voiding Method Toilet # Voids 2 - Labs CBC & Chem 7: 02/04/24 16:32 02/06/24 04:05 Labs: Abnormal Lab Results - Last 24 Hours (Table) 02/05/24 02/05/24 02/05/24 Range/Units 14:12 17:10 21:11 BUN (9.0-27.0) mg/dL Creatinine (0.6-1.5) mg/dL Est GFR (CKD-EPI) (>=60) BUN/Creatinine Ratio (12.00-20.00) Ratio Glucose (70-110) mg/dL POC Glucose (mg/dL) 203 H 197 H 269 H (70-110) mg/dL Hemoglobin A1c (<=6.0) % 02/06/24 02/06/24 02/06/24 Range/Units 04:05 04:05 05:53 BUN 28.1 H (9.0-27.0) mg/dL Creatinine 2.5 H (0.6-1.5) mg/dL Est GFR (CKD-EPI) 23 L (>=60) BUN/Creatinine Ratio 11.24 L (12.00-20.00) Ratio Glucose 216 H (70-110) mg/dL POC Glucose (mg/dL) 211 H (70-110) mg/dL Hemoglobin A1c 8.2 H (<=6.0) %
[2024-02-06 11:41] VITALS: BMI 39.5
[2024-02-06 11:43] LABS: Glucose,Whole Blood 215 mg/dL (70-110)
--- NOTE | 2024-02-06 13:01 | P.NPCON ---
History of Present Illness - Reason for Consult acute renal failure - History of Present Illness patient is a 53-year-old female with history of hypertension,type 2 diabetes and diabetic retinopathy. Patient is legally blind. She is admitted to the hospital with complaints of increased shortness of breath and leg swelling over the past week or so. Patient denied any fever or chills. No cough. Patient states that she has been advised that she has had week kidney function but has not followed up with a bobcat operator. Currently been diuresed and Lasix dose was decreased today. previous creatinine noted to be at 1.9-2.0 in 2019. BP has not been low. Maintained on PHILLIP inhibitor's at home. Patient states she is voiding. No history of NSAIDs. Review of Systems as per HPI Past Medical History Past Medical History: Diabetes Mellitus, Eye Disorder, Hyperlipidemia, Hypertension Additional Past Medical History / Comment(s): IDDM type II, blindness d/t diabetes with R eye having only 2% vision, current sore on bottom R foot, bilateral neuropathy hands/feet. History of Any Multi-Drug Resistant Organisms: None Reported Past Surgical History: Adenoidectomy, Cholecystectomy, Tonsillectomy Additional Past Surgical History / Comment(s): BENIGN TUMOR & LT OVARY REMOVED, 01/19/15 COLD KNIFE CONE FOR ABNORMAL CERVICAL CELLS, COLONOSCOPY. Past Anesthesia/Blood Transfusion Reactions: No Reported Reaction Past Psychological History: No Psychological Hx Reported Additional Psychological History / Comment(s): She is blind. Pt has a talking glucometer, talking scanner and talking cell phone. She manages her own medications, keeping bottles always in same order and can recognize pills by shape. Smoking Status: Former smoker Past Alcohol Use History: None Reported Additional Past Alcohol Use History / Comment(s): STARTED SMOKING AT 13 OR 14- 1/2 PACK PER DAY Past Drug Use History: Marijuana Additional Drug Use History / Comment(s): Stopped smoing or using marijuana this year - Past Family History Father Family Medical History: Diabetes Mellitus Mother Family Medical History: Asthma, Pneumonia Additional Family Medical History / Comment(s): "BREATHING PROBLEMS" Medications and Allergies Home Medications Medication Instructions Recorded Confirmed Type Atorvastatin [Lipitor] 20 mg PO DAILY 01/11/15 02/04/24 History Metoprolol Succinate [Toprol XL] 100 mg PO DAILY 04/15/19 02/04/24 History Furosemide [Lasix] 20 mg PO DAILY 02/04/24 02/04/24 History Glimepiride [Amaryl] 4 mg PO DAILY 02/04/24 02/04/24 History QUEtiapine [SEROquel] 50 mg PO HS 02/04/24 02/04/24 History lisinopriL [Zestril] 10 mg PO DAILY 02/04/24 02/04/24 History Allergies Allergy/AdvReac Type Severity Reaction Status Date / Time No Known Allergies Allergy Verified 02/04/24 18:08 Physical Exam Vitals: Vital Signs Temp Pulse Pulse Resp BP BP BP 02/06/24 08:48 02/06/24 08:00 98.1 F 75 17 126/74 02/06/24 02:06 98.5 F 76 18 135/82 02/05/24 21:10 98.3 F 77 16 121/77 02/05/24 19:34 98.8 F 74 16 112/92 02/05/24 18:36 98.2 F 76 16 116/97 02/05/24 16:58 98.4 F 75 17 114/66 Pulse Ox 02/06/24 08:48 98 02/06/24 08:00 89 L 02/06/24 02:06 98 02/05/24 21:10 97 02/05/24 19:34 97 02/05/24 18:36 98 02/05/24 16:58 95 Intake and Output 02/05/24 02/06/24 02/06/24 22:59 06:59 14:59 Other: Voiding Method Toilet Toilet # Voids 2 Weight 117.934 kg 117.934 kg patient is awake, comfortable, no acute distress. Examination of the heart S1 and S2 Examination of the lungs decreased breath sounds at the bases Abdomen is soft nontender Examination of lower extremities shows 1+ edema bilaterally Patient is legally blind VISITOR SERVICES TECHNICIAN exam shows patient is moving all 4 extremities. Results - Lab Results Most recent lab results Calcium 8.9 mg/dL (8.7-10.3) 02/06/24 04:05 Magnesium 1.8 mg/dL (1.6-2.3) 02/04/24 16:32 02/04/24 16:32 02/06/24 04:05 Assessment and Plan Assessment: 1. Acute kidney injury, mostly cardiorenal. EF is 20-25%. Patient is being diuresed. Dose of diuretics has been decreased. Check UA. Check ultrasound of the kidneys. No nephrotoxic agents identified. PHILLIP inhibitor's on hold. 2. Chronic kidney disease NKF stage IV with previous creatinine 1.9-2 mg/dL in 2019. previous UA showed 1+ protein in 2018. Etiology is likely diabetic kidney disease. 3. Volume overload 4. Acute CHF with decreased ejection fraction. 5. Cardiomyopathy with EF of 20-25% Plan: continue to diurese patient. Check UA Check ultrasound of the kidneys Repeat labs in a.m. Patient will need close follow-up as outpatient for CK D. We will try to resume Phillip inhibitors as outpatient. Okay to add SGLT2 inhibitors. Thank you for the consultation. We will continue to follow the patient with you during her hospitalization.
--- NOTE | 2024-02-06 13:45 | US ---
EXAMINATION TYPE: US kidneys/renal and bladder DATE OF EXAM: 02/06/2024 COMPARISON: NONE CLINICAL INDICATION: Female, 53 years old with history of MYRA; MYRA EXAM MEASUREMENTS: Right Kidney: 8.4 x 4.9 x 4.1 cm Left Kidney: 9.5 x 4.4 x 4.1 cm Right Kidney: Cortical thinning atrophic Left Kidney: No hydronephrosis or masses seen Bladder: anechoic Bilateral Jets seen: no There is no evidence for hydronephrosis at this point in time. No nephrolithiasis is seen. No ramya s are identified. The urinary bladder is anechoic. Bilateral ureteral jets are seen. IMPRESSION: No evidence for obstructive uropathy. Mild medical renal disease right side with cortical thinning..
--- NOTE | 2024-02-06 15:15 | P.PN ---
Subjective Progress Note Date: 02/06/24 H&P Date: 02/05/24 Chief Complaint: Worsening dyspnea This a 53-year-old female with past medical history significant for diabetes mellitus type 2 with diabetic neuropathy and retinopathy-legally blind, morbid obesity-BMI 40, hypertension, hyperlipidemia, COPD, ongoing nicotine dependence, strong family history of vascular disease including heart attacks and CVAs on both sides, presents to the ER with complaints of progressive shortness of breath over the last week, worsened with exertion, accompanied by cough, chest heaviness and bilateral lower extremity edema. Positive orthopnea. reports she quit smoking 1 week ago. Denies nausea vomiting or diarrhea. Denies abdominal pain. Denies bleeding disorders. troponin negative x 1, EKG reported sinus rhythm. chest x-ray reported pulmonary vascular congestion and bilateral pleural effusions. Pro BNP 9930. Afebrile, normal WBC. Hemoglobin 9.2, platelets 292, INR 1, D-dimer 1.54.Creatinine currently 1.95, VQ scan ordered. Bicarb 19, BUN 21. sodium 137, potassium 3.8, magnesium 2. Glucose 245. Evaluated by cardiology, recommending cardiac catheterization. Patient adamantly declining. States she will not proceed with a cardiac catheterization as she relates her parents and grandparents demise to cardiac catheterization complications. Echo ordered. Continues on IV push diuretics, beta-ariana, statin. 02/06/2024 Feels better this morning after eating yesterday and getting a good n ights rest.Echo reported EF of 20 to 25%, moderate LV cavity dilatation, severely reduced global systolic function, mild to distal anteriorseptal wall and apical wall hypokinesia, RVSP 35 mmHg, Mild LA dilatation. Signs of elevated LA filling pressure. No significant valve dysfunction. Reports she is now willing to proceed with cardiac catheterization. Maintained on IV push diuretics, renal function worsened with creatinine up to 2.5. I&O inaccurate. Objective - Vital Signs Vital signs: Vital Signs Temp 98.1 F 02/06/24 08:00 Pulse 75 02/06/24 08:00 Resp 17 02/06/24 08:00 BP 126/74 02/06/24 08:00 Pulse Ox 98 02/06/24 08:48 FiO2 Intake & Output 02/05/24 02/06/24 02/06/24 18:59 06:59 18:59 Weight 117.934 kg Other: Voiding Method Toilet # Voids 2 - Exam PHYSICAL EXAM: VITAL SIGNS: [As above] GENERAL: Patient is legally blind ,alert and oriented x 3, sitting up in chair, no acute distress. HEENT: Atraumatic, normocephalic, pupils equal, anicteric sclera. NECK: Supple, no JVD. No thyroid enlargement. No LNs CARDIOVASCULAR: S1, S2 regular.No murmur. RESPIRATION: Unlabored equal air entry, essentially clear to auscultation. ABDOMEN: Soft, nontender, nondistended. No guarding. no appreciable organomegaly. +BS LEGS: Bilateral lower extremity edema, no calf tenderness. NERVOUS SYSTEM: Cranial N 2-12 grossly normal. Skin: Warm and dry,no rash noted. - Labs CBC & Chem 7: 02/04/24 16:32 02/06/24 04:05 Labs: Abnormal Lab Results - Last 24 Hours (Table) 02/05/24 02/05/24 02/05/24 Range/Units 14:12 17:10 21:11 BUN (9.0-27.0) mg/dL Creatinine (0.6-1.5) mg/dL Est GFR (CKD-EPI) (>=60) BUN/Creatinine Ratio (12.00-20.00) Ratio Glucose (70-110) mg/dL POC Glucose (mg/dL) 203 H 197 H 269 H (70-110) mg/dL Hemoglobin A1c (<=6.0) % 02/06/24 02/06/24 02/06/24 Range/Units 04:05 04:05 05:53 BUN 28.1 H (9.0-27.0) mg/dL Creatinine 2.5 H (0.6-1.5) mg/dL Est GFR (CKD-EPI) 23 L (>=60) BUN/Creatinine Ratio 11.24 L (12.00-20.00) Ratio Glucose 216 H (70-110) mg/dL POC Glucose (mg/dL) 211 H (70-110) mg/dL Hemoglobin A1c 8.2 H (<=6.0) % Assessment and Plan Assessment: Acute CHF exacerbation, systolic dysfunction Cardiomyopathy, EF 20 to 25%, type unknown Progressive dyspnea on exertion with orthopnea secondary to the above Chronic kidney disease IIIb, baseline creatinine 1.9-2 Anemia of chronic kidney disease Diabetes mellitus type 2, uncontrolled, hemoglobin A1c 8.2, will require further diabetic teaching outpatient in clinic with PCP. Diabetic retinopathy, legally blind Diabetic neuropathy Nicotine dependence, quit 1 week ago Hypertension Hyperlipidemia Strong family history of vascular disease, CAD, [place], CVAs Morbid obesity, BMI 40 Plan: Continue on current medication using ,monitoring and symptomatic treatment. Renal function worsening, JOHN inhibitor discontinued, avoid nephro toxins, nephrology consulted. Strict I&O's/CHF pathway. Lasix IV push decreased to daily as per cardiology. Close monitoring of renal function, electrolytes with repeat labs ordered for a.m. cardiac catheterization pending renal function improvement. smoking cessation reinforced. Tight blood sugar control, close monitoring of Accu-Cheks. Dietitian consult/possibly provide braille education booklets. The impression and plan of care has been dictated as directed. : I performed a history and examination of this patient, discussed the same with the dictator. I agree with the dictator's note ,documented as a scribe. Any additional findings or plans will be noted.
[2024-02-06 16:54] LABS: Glucose,Whole Blood 197 mg/dL (70-110)
[2024-02-06 21:01] LABS: Glucose,Whole Blood 351 mg/dL (70-110)
[2024-02-06 22:31] LABS: Glucose,Whole Blood 367 mg/dL (70-110)
[2024-02-07 05:36] LABS: Appearance,Urine Clear (Clear); Bilirubin,Urine Negative (Negative); Blood,Urine Negative (Negative); Color,Urine Colorless; Glucose,Urine (UA) Negative (Negative); Ketones,Urine Negative (Negative); Leukocyte Esterase,Urine Negative (Negative); Nitrite,Urine Negative (Negative); PH, Urine 5.5 (5.0-8.0); Protein,Urine Negative (Negative); Specific Gravity,Urine 1.014 (1.001-1.035); Urobilinogen,Urine <2.0 mg/dL (<2.0)
[2024-02-07 06:12] LABS: Glucose,Whole Blood 117 mg/dL (70-110)
[2024-02-07] MEDS: FUROSEMIDE 10 MG/ML 4 ML VIAL IV SCH (08:32)
[2024-02-07] MEDS: INSULIN DETEMIR (LEVEMIR) 100 UNIT/ML SYR SQ SCH (09:29)
--- NOTE | 2024-02-07 09:35 | CDI ---
Documentation Clarification Form Date: 02/07/2024 09:20:33 AM From: Solange Hammer RN CCDS Phone: [phone] Admit Date: 02/06/2024 09:34:00 AM Patient Name: Sharmaine Christine Visit Number: [id number] Discharge Date: ATTENTION: The Clinical Documentation Specialists (CDI) and [facility] Coding Staff appreciate your assistance in clarifying documentation. Please respond to the clarification below the line at the bottom and electronically sign. The CDI & [facility] Coding staff will review the response and follow-up if needed. Please note: Queries are made part of the Legal Health Record. If you have any questions, please contact the author of this message via ITS. Dr. Britany Barragan Conflicting documentation has been found in the medical record. As attending physician, please provide clarification. Chronic kidney disease NKF stage IV, Nephrology consult, 02/05 Chronic kidney disease IIIb, baseline creatinine 1.9-2, Medicine note 02/05 History/Risk Factors: 53 year old female presents to the ED with worsening dyspnea. Medical history: DM2, Diabetic neuropathy and retinopathy legally blind, Morbid Obesity BMI 40 and HTN. 02/04, HP. Clinical Indicators: VSS, 02/04: B/P 150/77; HR 86; Temp 98.2 F Oral; RR 22; SpO2 99% ra Kidney US, 02/05: No evidence for obstructive uropathy. Mild medical renal disease right side with cortical thinning. 04/21/2019, Patients Historical BUN 34 CR 2.12 GFR 27 02/04/2024, Patients Current BUN 21 CR 1.95 GFR 29 Treatment: Discontinued JOHN inhibitor, Avoid nephrotoxins, Kidney US, Nephrology consult. Please clarify which diagnosis is most appropriate: [ X ] Chronic kidney disease NKF stage IV with previous creatinine 1.9 2 mg/dl in 2019 [ ] Chronic kidney disease IIIb, baseline creatinine 1.9-2 [ ] Other (please specify) [ ] Unable to determine 02/07/2024 Medicine progress note. Documented by Holli Barragan NP/ Inocente Corea MD: Chronic kidney disease IV baseline cr 1.9 -2 (Template Last Revised: October 2020) MTDD
[2024-02-07 11:03] LABS: BUN/Creat Ratio 14.17 Ratio (12.00-20.00); Carbon Dioxide 20.7 mmol/L (21.6-31.8); Chloride 105 mmol/L (96-109); Glucose 119 mg/dL (70-110); Potassium 3.9 mmol/L (3.5-5.5); Sodium 142 mmol/L (135-145)
[2024-02-07 11:40] LABS: Glucose,Whole Blood 210 mg/dL (70-110)
--- NOTE | 2024-02-07 13:11 | P.PN ---
Subjective patient is seen for follow-up for acute kidney injury. Patient has underlying chronic kidney disease with baseline creatinine around 1.9-2 mg/dL in 2019. She was admitted with volume overload and is currently being diuresed. Lasix is been decreased to 40 mg IV daily. No complaints of shortness of breath today. Serum creatinine at 2.4 today. Objective - Vital Signs Vital signs: Vital Signs Temp 97.6 F 02/07/24 07:17 Pulse 76 02/07/24 12:06 Resp 17 02/07/24 08:32 BP 124/78 02/07/24 12:06 Pulse Ox 100 02/07/24 07:17 FiO2 Intake & Output 02/06/24 02/07/24 02/07/24 18:59 06:59 18:59 Output Total 300 Balance -300 Weight 117.934 kg Output: Urine 300 Other: Voiding Method Toilet Toilet # Voids 2 - Exam Patient is awake, comfortable, no acute distress. Examination of the heart S1 and S2 Examination of the lungs decreased breath sounds at the bases Abdomen is soft nontender Examination of lower extremities shows 1+ edema bilaterally Patient is legally blind WEB OPERATIONS SPECIALIST exam shows patient is moving all 4 extremities. - Labs CBC & Chem 7: 02/04/24 16:32 02/07/24 06:20 Labs: Abnormal Lab Results - Last 24 Hours (Table) 02/06/24 02/06/24 02/06/24 Range/Units 16:52 21:00 22:29 Carbon Dioxide (21.6-31.8) mmol/L Anion Gap (4.00-12.00) mmol/L BUN (9.0-27.0) mg/dL Creatinine (0.6-1.5) mg/dL Est GFR (CKD-EPI) (>=60) Glucose (70-110) mg/dL POC Glucose (mg/dL) 197 H 351 H 367 H (70-110) mg/dL 02/07/24 02/07/24 02/07/24 Range/Units 06:10 06:20 11:39 Carbon Dioxide 20.7 L (21.6-31.8) mmol/L Anion Gap 16.30 H (4.00-12.00) mmol/L BUN 34.0 H (9.0-27.0) mg/dL Creatinine 2.4 H (0.6-1.5) mg/dL Est GFR (CKD-EPI) 24 L (>=60) Glucose 119 H (70-110) mg/dL POC Glucose (mg/dL) 117 H 210 H (70-110) mg/dL Assessment and Plan Assessment: 1. Acute kidney injury, mostly cardiorenal. EF is 20-25%. Patient is being diuresed. Dose of diuretics has been decreased. UA is completely benign. Ultrasound of the kidneys is unremarkable.. No nephrotoxic agents identified. PHILLIP inhibitor's on hold. 2. Chronic kidney disease NKF stage IV with previous creatinine 1.9-2 mg/dL in 2019. previous UA showed 1+ protein in 2018. Etiology is likely diabetic kidney disease. 3. Volume overload 4. Acute CHF with decreased ejection fraction. 5. Cardiomyopathy with EF of 20-25% Plan: continue to diurese patient. Repeat labs in a.m. Patient will need close follow-up as outpatient for CK D. We will try to resume Phillip inhibitors as outpatient. Okay to add SGLT2 inhibitors.
--- NOTE | 2024-02-07 13:48 | P.PN ---
Subjective Progress Note Date: 02/07/24 Reason for Consult (text): Acute hypoxic respiratory failure, acute exacerbation of CHF History of present illness: This is a 53-year-old female with past medical history of hypertension, hyperlipidemia, diabetes mellitus type 2, blindness secondary to diabetic retinopathy, diabetic neuropathy, tobacco use and dependence. Patient denies having any cardiac history and does not follow with a credit card interviewer. We have been asked to evaluate the patient for CHF. Patient states that she has had some shortness of breath for the last couple of days and felt like somebody is sitting on her chest. She states when she stood to walk from the bed to the bathroom she had to stop on her way and wait a few minutes before she could continue. Patient states that she quit smoking 1 week ago but still smells of smoke. Discussed recommendations for left heart cath to be done in the next couple days when her kidneys and shortness of breath are improved but patient flatly refuses. She also r stating that she will not take cardiac medications as she does not have any heart problems. Patient is seen today in the emergency center waiting for bed on the cardiac stepdown unit. EKG: Sinus rhythm Chest x-ray: Pulmonary vascular congestion and bilateral pleural effusions. Laboratory studies: WBC 6.3, hemoglobin 9.2, platelet count 292. D-dimer 1.54. Sodium 137, potassium 3.8, CO2 19, BUN 21 creatinine 1.95. Glucose 245. Troponin negative x 1. proBNP 9930. Home cardiac medications: Atorvastatin 20 mg daily, Lasix 20 mg daily, lisinopril 10 mg daily, Toprol-XL 100 mg daily 02/05 Patient is seen today on the [facility] floor. This morning, patient is now agreeable to undergo cardiac catheterization. She is not sure if she feels any better from yesterday. She is not sure if shortness of breath is improved. She has been maintained on IV Lasix 40 mg twice daily and has had a bump in her creatinine. Electrolytes are normal but BUN is 28 creatinine 2.5. Lasix frequency will be decreased, lisinopril discontinued and noted that nephrology consult was added. Blood pressure 126/74, heart rate 75, pulse ox 98% on room air. Echocardiogram reports EF of 20 to 25%. Moderate LV cavity dilatation. Severely reduced global systolic function. Mild to distal anterior anterior septal wall and apical wall hypokinesia. RVSP 35 mmHg. Mild LA dilatation. Signs of elevated LA filling pressure. No significant valve dysfunction. Discussed results of the echocardiogram with the patient and also results of the blood work. No plan for cardiac catheterization until renal function is improved. Patient will be transferred to the cardiac stepdown unit. 02/06 Yesterday, patient had worsening of her renal function on IV Lasix decreased to once a day frequency. Repeat blood work this morning is not available at the time of this dictation. Discussed with patient that we will hold on any cardiac catheterization due to her renal function. Patient states that she is planning to go home today. She states her breathing is good and his lower extremity edema is improved. Blood pressure 138/78, heart rate 89, pulse ox 100% on room air. After we had left, patient developed left-sided chest pain that went under her left arm. EKG was obtained which revealed sinus rhythm with occasional PVCs, no acute ST changes. Physical examination: Gen: This is a obese 53-year-old female in no acute respiratory distress VS: reviewed HEENT: Head is atraumatic, normocephalic. Pupils equal, round. Sclerae is anicteric. NECK: Supple. No JVD. LUNGS: Clear to auscultation. No wheezes or rhonchi. No intercostal retractions. HEART: Regular rate and rhythm. No murmur. ABDOMEN: Soft No tenderness. EXTREMITIES: Mild bilateral pedal edema. No calf tenderness. NEUROLOGICAL: Patient is awake, alert and oriented x3. Assessment: Acute heart failure, reduced EF Cardiomyopathy of unknown type Dyspnea on exertion Acute kidney injury Chronic kidney disease stage III-IV Diabetes mellitus type 2, uncontrolled with A1c 8.2 Hypertension Hyperlipidemia Legally blind from diabetic retinopathy Tobacco use and dependence Plan: Continue atorvastatin to 40 mg daily, aspirin 81 mg daily, Toprol XL 50 mg daily Discontinue lisinopril Transition IV Lasix to Bumex po 1 mg bid Monitor AL, daily weights, electrolytes and renal function Smoking cessation. Patient will be provided the [place] quit line information referral at discharge. Plan for cardiac catheterization as an outpatient and not during this hospitalization. It appears her creatinine baseline is 1.92. Further recommendations to follow based upon clinical course Nurse practitioner note has been reviewed, I agree with documented findings and plan of care. Patient was seen and examined. Objective - Vital Signs Vital signs: Vital Signs Temp 97.6 F 02/07/24 07:17 Pulse 89 02/07/24 07:17 Resp 17 02/07/24 07:17 BP 138/78 02/07/24 07:17 Pulse Ox 100 02/07/24 07:17 FiO2 Intake & Output 02/06/24 02/07/24 02/07/24 18:59 06:59 18:59 Output Total 300 Balance -300 Weight 117.934 kg Output: Urine 300 Other: Voiding Method Toilet # Voids 2 - Labs CBC & Chem 7: 02/04/24 16:32 02/07/24 06:20 Labs: Abnormal Lab Results - Last 24 Hours (Table) 02/06/24 02/06/24 02/06/24 Range/Units 11:41 16:52 21:00 POC Glucose (mg/dL) 215 H 197 H 351 H (70-110) mg/dL 02/06/24 02/07/24 Range/Units 22:29 06:10 POC Glucose (mg/dL) 367 H 117 H (70-110) mg/dL
--- NOTE | 2024-02-07 14:49 | P.PN ---
Subjective Progress Note Date: 02/07/24 H&P Date: 02/05/24 Chief Complaint: Worsening dyspnea This a 53-year-old female with past medical history significant for diabetes mellitus type 2 with diabetic neuropathy and retinopathy-legally blind, morbid obesity-BMI 40, hypertension, hyperlipidemia, COPD, ongoing nicotine dependence, strong family history of vascular disease including heart attacks and CVAs on both sides, presents to the ER with complaints of progressive shortness of breath over the last week, worsened with exertion, accompanied by cough, chest heaviness and bilateral lower extremity edema. Positive orthopnea. reports she quit smoking 1 week ago. Denies nausea vomiting or diarrhea. Denies abdominal pain. Denies bleeding disorders. troponin negative x 1, EKG reported sinus rhythm. chest x-ray reported pulmonary vascular congestion and bilateral pleural effusions. Pro BNP 9930. Afebrile, normal WBC. Hemoglobin 9.2, platelets 292, INR 1, D-dimer 1.54.Creatinine currently 1.95, VQ scan ordered. Bicarb 19, BUN 21. sodium 137, potassium 3.8, magnesium 2. Glucose 245. Evaluated by cardiology, recommending cardiac catheterization. Patient adamantly declining. States she will not proceed with a cardiac catheterization as she relates her parents and grandparents demise to cardiac catheterization complications. Echo ordered. Continues on IV push diuretics, beta-ariana, statin. 02/06/2024 Feels better this morning after eating yesterday and getting a good n ights rest.Echo reported EF of 20 to 25%, moderate LV cavity dilatation, severely reduced global systolic function, mild to distal anteriorseptal wall and apical wall hypokinesia, RVSP 35 mmHg, Mild LA dilatation. Signs of elevated LA filling pressure. No significant valve dysfunction. Reports she is now willing to proceed with cardiac catheterization. Maintained on IV push diuretics, renal function worsened with creatinine up to 2.5. I&O inaccurate. 02/07/24 Lasix decreased yesterday, creatinine 2.4 currently.Cardiac cath. remains on hold.Denies chest pain, palpitations or shortness of breath. Objective - Vital Signs Vital signs: Vital Signs Temp 97.6 F 02/07/24 07:17 Pulse 76 02/07/24 12:06 Resp 17 02/07/24 08:32 BP 124/78 02/07/24 12:06 Pulse Ox 100 02/07/24 07:17 FiO2 Intake & Output 02/06/24 02/07/24 02/07/24 18:59 06:59 18:59 Output Total 300 Balance -300 Weight 117.934 kg Output: Urine 300 Other: Voiding Method Toilet Toilet # Voids 2 - Exam PHYSICAL EXAM: VITAL SIGNS: [As above] GENERAL: Patient is legally blind ,alert and oriented x 3, sitting up in chair, no acute distress. HEENT: Atraumatic, normocephalic, pupils equal, anicteric sclera. NECK: Supple, no JVD. No thyroid enlargement. No LNs CARDIOVASCULAR: S1, S2 regular.No murmur. RESPIRATION: Unlabored equal air entry, essentially clear to auscultation. ABDOMEN: Soft, nontender, nondistended. No guarding. no appreciable organome roxanna. +BS LEGS: Decreased Bilateral lower extremity edema, no calf tenderness. NERVOUS SYSTEM: Cranial N 2-12 grossly normal. Skin: Warm and dry,no rash noted. - Labs CBC & Chem 7: 02/04/24 16:32 02/07/24 06:20 Labs: Abnormal Lab Results - Last 24 Hours (Table) 02/06/24 02/06/24 02/06/24 Range/Units 16:52 21:00 22:29 Carbon Dioxide (21.6-31.8) mmol/L Anion Gap (4.00-12.00) mmol/L BUN (9.0-27.0) mg/dL Creatinine (0.6-1.5) mg/dL Est GFR (CKD-EPI) (>=60) Glucose (70-110) mg/dL POC Glucose (mg/dL) 197 H 351 H 367 H (70-110) mg/dL 02/07/24 02/07/24 02/07/24 Range/Units 06:10 06:20 11:39 Carbon Dioxide 20.7 L (21.6-31.8) mmol/L Anion Gap 16.30 H (4.00-12.00) mmol/L BUN 34.0 H (9.0-27.0) mg/dL Creatinine 2.4 H (0.6-1.5) mg/dL Est GFR (CKD-EPI) 24 L (>=60) Glucose 119 H (70-110) mg/dL POC Glucose (mg/dL) 117 H 210 H (70-110) mg/dL Assessment and Plan Assessment: Acute CHF exacerbation, systolic dysfunction Cardiomyopathy, EF 20 to 25%, type unknown Progressive dyspnea on exertion with orthopnea secondary to the above Chronic kidney disease IV, baseline creatinine 1.9-2 Anemia of chronic kidney disease Diabetes mellitus type 2, uncontrolled, hemoglobin A1c 8.2, will require further diabetic teaching outpatient in clinic with PCP. Diabetic retinopathy, legally blind Diabetic neuropathy Nicotine dependence, quit 1 week ago Hypertension Hyperlipidemia Strong family history of vascular disease, CAD, [place], CVAs Morbid obesity, BMI 40 Plan: Continue on current medication using ,monitoring and symptomatic treatment.Diuretics as per Cardiology.Maintain Strict I&O's. Close monitoring of renal function,electrolytes with repeat labs ordered for a.m. cardiac catheterization pending renal function improvement. smoking cessation reinforced. Maintain tight blood sugar control, close monitoring of Accu-Cheks. The impression and plan of care has been dictated as directed. : I performed a history and examination of this patient, discussed the same with the dictator. I agree with the dictator's note ,documented as a scribe. Any additional findings or plans will be noted.
[2024-02-07 16:34] LABS: Glucose,Whole Blood 230 mg/dL (70-110)
[2024-02-07] MEDS: BUMETANIDE 1 MG TAB PO SCH (17:06)
[2024-02-07] MEDS: MORPHINE SULFATE 2 MG/ML SYRINGE IVP PRN (21:05)
[2024-02-07 21:16] LABS: Glucose,Whole Blood 194 mg/dL (70-110)
[2024-02-08 05:42] LABS: Glucose,Whole Blood 144 mg/dL (70-110)
[2024-02-08 09:00] VITALS: RESP 17
[2024-02-08] MEDS ORDERED: polyethylene glycoL 3350 17 GM POWD.PACK PO SCH (09:00)
--- NOTE | 2024-02-08 09:48 | P.PN ---
Subjective Progress Note Date: 02/08/24 Reason for Consult (text): Acute hypoxic respiratory failure, acute exacerbation of CHF History of present illness: This is a 53-year-old female with past medical history of hypertension, hyperlipidemia, diabetes mellitus type 2, blindness secondary to diabetic retinopathy, diabetic neuropathy, tobacco use and dependence. Patient denies having any cardiac history and does not follow with a district resource officer. We have been asked to evaluate the patient for CHF. Patient states that she has had some shortness of breath for the last couple of days and felt like somebody is sitting on her chest. She states when she stood to walk from the bed to the bathroom she had to stop on her way and wait a few minutes before she could continue. Patient states that she quit smoking 1 week ago but still smells of smoke. Discussed recommendations for left heart cath to be done in the next couple days when her kidneys and shortness of breath are improved but patient flatly refuses. She also r stating that she will not take cardiac medications as she does not have any heart problems. Patient is seen today in the emergency center waiting for bed on the cardiac stepdown unit. EKG: Sinus rhythm Chest x-ray: Pulmonary vascular congestion and bilateral pleural effusions. Laboratory studies: WBC 6.3, hemoglobin 9.2, platelet count 292. D-dimer 1.54. Sodium 137, potassium 3.8, CO2 19, BUN 21 creatinine 1.95. Glucose 245. Troponin negative x 1. proBNP 9930. Home cardiac medications: Atorvastatin 20 mg daily, Lasix 20 mg daily, lisinopril 10 mg daily, Toprol-XL 100 mg daily 02/05 Patient is seen today on the [facility] floor. This morning, patient is now agreeable to undergo cardiac catheterization. She is not sure if she feels any better from yesterday. She is not sure if shortness of breath is improved. She has been maintained on IV Lasix 40 mg twice daily and has had a bump in her creatinine. Electrolytes are normal but BUN is 28 creatinine 2.5. Lasix frequency will be decreased, lisinopril discontinued and noted that nephrology consult was added. Blood pressure 126/74, heart rate 75, pulse ox 98% on room air. Echocardiogram reports EF of 20 to 25%. Moderate LV cavity dilatation. Severely reduced global systolic function. Mild to distal anterior anterior septal wall and apical wall hypokinesia. RVSP 35 mmHg. Mild LA dilatation. Signs of elevated LA filling pressure. No significant valve dysfunction. Discussed results of the echocardiogram with the patient and also results of the blood work. No plan for cardiac catheterization until renal function is improved. Patient will be transferred to the cardiac stepdown unit. 02/06 Yesterday, patient had worsening of her renal function on IV Lasix decreased to once a day frequency. Repeat blood work this morning is not available at the time of this dictation. Discussed with patient that we will hold on any cardiac catheterization due to her renal function. Patient states that she is planning to go home today. She states her breathing is good and his lower extremity edema is improved. Blood pressure 138/78, heart rate 89, pulse ox 100% on room air. After we had left, patient developed left-sided chest pain that went under her left arm. EKG was obtained which revealed sinus rhythm with occasional PVCs, no acute ST changes. 02/07 Patient denies having any chest pain. She has making a lot of urine. Edema is improved. Shortness of breath is improved. Yesterday, we transition IV Lasix to oral Bumex. Blood pressure 127/82, heart rate 82, pulse ox 98% on room air. Patient is agreeable to follow-up in the office and further discussion regarding cardiac catheterization will take place at that time. Physical examination: Gen: This is a obese 53-year-old female in no acute respiratory distress VS: reviewed HEENT: Head is atraumatic, normocephalic. Pupils equal, round. Sclerae is anicteric. NECK: Supple. No JVD. LUNGS: Clear to auscultation. No wheezes or rhonchi. No intercostal retractions. HEART: Regular rate and rhythm. No murmur. ABDOMEN: Soft No tenderness. EXTREMITIES: Mild bilateral pedal edema. No calf tenderness. NEUROLOGICAL: Patient is awake, alert and oriented x3. Assessment: Acute heart failure, reduced EF Cardiomyopathy of unknown type Dyspnea on exertion Acute kidney injury Chronic kidney disease stage III-IV Diabetes mellitus type 2, uncontrolled with A1c 8.2 Hypertension Hyperlipidemia Legally blind from diabetic retinopathy Tobacco use and dependence Plan: Continue atorvastatin to 40 mg daily, aspirin 81 mg daily, Toprol XL 50 mg daily Discontinue lisinopril at discharge Continue Bumex po 1 mg bid Smoking cessation. Patient will be provided the [place] quit line information referral at discharge. Plan for cardiac catheterization as an outpatient and not during this hospitalization. It appears her creatinine baseline is 1.92. Patient is cleared for discharge from cardiology and will follow-up with Dr. Tatum in the office in 1 to 2 weeks. Nurse practitioner note has been reviewed, I agree with documented findings and plan of care. Patient was seen and examined. Objective - Vital Signs Vital signs: Vital Signs Temp 98.6 F 02/08/24 07:46 Pulse 70 02/08/24 08:14 Resp 17 02/08/24 08:14 BP 127/82 02/08/24 07:46 Pulse Ox 98 02/08/24 07:46 FiO2 Intake & Output 02/07/24 02/08/24 02/08/24 18:59 06:59 18:59 Other: Voiding Method Toilet Toilet # Voids 3 3 - Labs CBC & Chem 7: 02/04/24 16:32 02/07/24 06:20 Labs: Abnormal Lab Results - Last 24 Hours (Table) 02/07/24 02/07/24 02/07/24 Range/Units 06:20 11:39 16:32 Carbon Dioxide 20.7 L (21.6-31.8) mmol/L Anion Gap 16.30 H (4.00-12.00) mmol/L BUN 34.0 H (9.0-27.0) mg/dL Creatinine 2.4 H (0.6-1.5) mg/dL Est GFR (CKD-EPI) 24 L (>=60) Glucose 119 H (70-110) mg/dL POC Glucose (mg/dL) 210 H 230 H (70-110) mg/dL 02/07/24 02/08/24 Range/Units 21:14 05:40 Carbon Dioxide (21.6-31.8) mmol/L Anion Gap (4.00-12.00) mmol/L BUN (9.0-27.0) mg/dL Creatinine (0.6-1.5) mg/dL Est GFR (CKD-EPI) (>=60) Glucose (70-110) mg/dL POC Glucose (mg/dL) 194 H 144 H (70-110) mg/dL
[2024-02-08 10:41] LABS: BUN/Creat Ratio 15.74 Ratio (12.00-20.00); Blood Urea Nitrogen 36.2 mg/dL (9.0-27.0); Calcium 9.4 mg/dL (8.7-10.3); Carbon Dioxide 25.8 mmol/L (21.6-31.8); Chloride 103 mmol/L (96-109); Glucose 141 mg/dL (70-110); Sodium 143 mmol/L (135-145)
[2024-02-08 11:45] LABS: Glucose,Whole Blood 210 mg/dL (70-110)
[2024-02-08 13:56] VITALS: BP 119/74; PULSE 75; TEMP 98.2
--- NOTE | 2024-02-08 14:02 | P.DS ---
Providers Date of admission: 02/06/24 09:34 Expected date of discharge: 02/08/24 Attending physician: Inocente Corea MD Consults: 02/04/24 18:33 Consult Physician Routine Consulting Provider: Michele Lewis Consult Reason/Comments: chf Do you want consulting provider notified?: Yes 02/06/24 08:48 Consult Physician Routine Consulting Provider: Delilah Thurman Consult Reason/Comments: renal failure,CHF Do you want consulting provider notified?: Yes Primary care physician: Inocente Corea MD Hospital Course: Final diagnoses Acute CHF exacerbation, systolic dysfunction Cardiomyopathy, EF 20 to 25%, type unknown Progressive dyspnea on exertion with orthopnea secondary to the above Chronic kidney disease IV, baseline creatinine 1.9-2 Anemia of chronic kidney disease Diabetes mellitus type 2, uncontrolled, hemoglobin A1c 8.2, will require further diabetic teaching outpatient in clinic with PCP. Cleared by nephrology to add SGLT2 inhibitors in clinic. Diabetic retinopathy, legally blind Diabetic neuropathy Nicotine dependence, quit 1 week ago Hypertension Hyperlipidemia Strong family history of vascular disease, CAD, [place], CVAs Morbid obesity, BMI 40 Hospital course:This a 53-year-old female with past medical history significant for diabetes mellitus type 2 with diabetic neuropathy and retinopathy-legally blind, morbid obesity-BMI 40, hypertension, hyperlipidemia, COPD, ongoing nicotine dependence, strong family history of vascular disease including heart attacks and CVAs on both sides, presents to the ER with complaints of progressive shortness of breath over the last week, worsened with exertion, accompanied by cough, chest heaviness and bilateral lower extremity edema. Positive orthopnea. reports she quit smoking 1 week ago. Denies nausea vomiting or diarrhea. Denies abdominal pain. Denies bleeding disorders. troponin negative x 1, EKG reported sinus rhythm. chest x-ray reported pulmonary vascular congestion and bilateral pleural effusions. Pro BNP 9930. Afebrile, normal WBC. Hemoglobin 9.2, platelets 292, INR 1, D-dimer 1.54.Creatinine currently 1.95, VQ scan ordered. Bicarb 19, BUN 21. sodium 137, potassium 3.8, magnesium 2. Glucose 245. Evaluated by cardiology, recommending cardiac catheterization. Patient adamantly declining. States she will not proceed with a cardiac catheterization as she relates her parents and grandparents demise to cardiac catheterization complications. Echo ordered. Continues on IV push diuretics, beta-ariana, statin. 02/06/2024 Feels better this morning after eating yesterday and getting a good nights rest.Echo reported EF of 20 to 25%, moderate LV cavity dilatation, severely reduced global systolic function, mild to distal anteriorseptal wall and apical wall hypokinesia, RVSP 35 mmHg, Mild LA dilatation. Signs of elevated LA filling pressure. No significant valve dysfunction. Reports she is now willing to proceed with cardiac catheterization. Maintained on IV push diuretics, renal function worsened with creatinine up to 2.5. I&O inaccurate. 02/07/24 Lasix decreased yesterday, creatinine 2.4 currently.Cardiac cath. remains on hold.Denies chest pain, palpitations or shortness of breath. Diuretics as per Cardiology.Maintain Strict I&O's. Close monitoring of renal function,electrolytes with repeat labs ordered for a.m. cardiac catheterization pending renal function improvement. smoking cessation reinforced. Maintain tight blood sugar control, close monitoring of Accu-Cheks. Diuretics transitioned to oral Bumex yesterday, edema decreased. Yesterday afternoon patient complained of left chest pain radiating under her left arm, EKG reported sinus rhythm with occasional PVCs with no acute ST changes as per cardiology review .denies chest pain, palpitations or shortness of breath. Vital signs stable. Creatinine 2.3, cardiology recommending outpatient cardiac catheterization. Smoking sensation reinforced. Continue avoiding all nephrotoxins/lisinopril discontinued. Patient has been cleared by cardiology for discharge. Patient will be discharged home today in a stable condition with guarded prognosis. The impression and plan of care has been dictated as directed. : I performed a history and examination of this patient, discussed the same with the dictator. I agree with the dictator's note ,documented as a scribe. Any additional findings or plans will be noted. Patient Condition at Discharge: Stable Plan - Discharge Summary Discharge Rx Participant: No New Discharge Prescriptions: New Aspirin 81 mg PO DAILY tab Bumetanide [BUMEX] 1 mg PO BID@0900,1600 #60 tab Atorvastatin [Lipitor] 40 mg PO DAILY #30 tab Metoprolol Succinate (ER) [Toprol XL] 50 mg PO DAILY #30 tab polyethylene glycoL 3350 [Miralax] 17 gm PO DAILY packet Continue QUEtiapine [SEROquel] 50 mg PO HS Glimepiride [Amaryl] 4 mg PO DAILY Discontinued Atorvastatin [Lipitor] 20 mg PO DAILY Metoprolol Succinate [Toprol XL] 100 mg PO DAILY lisinopriL [Zestril] 10 mg PO DAILY Furosemide [Lasix] 20 mg PO DAILY Discharge Medication List Glimepiride [Amaryl] 4 mg PO DAILY 02/04/24 [History] QUEtiapine [SEROquel] 50 mg PO HS 02/04/24 [History] Aspirin 81 mg PO DAILY tab 02/08/24 [Rx] Atorvastatin [Lipitor] 40 mg PO DAILY #30 tab 02/08/24 [Rx] Bumetanide [BUMEX] 1 mg PO BID@0900,1600 #60 tab 02/08/24 [Rx] Metoprolol Succinate (ER) [Toprol XL] 50 mg PO DAILY #30 tab 02/08/24 [Rx] polyethylene glycoL 3350 [Miralax] 17 gm PO DAILY packet 02/08/24 [Rx] Follow up Appointment(s)/Referral(s): Rayshawn Tatum MD [Medical Doctor] - 1 Week (office will call with appointment time) Delilah Thurman MD [STAFF PHYSICIAN] - 03/03/24 1:20 pm Inocente Corea MD [Primary Care Provider] - 3 Days (office not answering please call to schedule appointment ) Ambulatory/Diagnostic Orders: Basic Metabolic Panel [LAB.AMB] Time Frame: 3 Days, Location: None Selected
--- NOTE | 2024-02-08 16:44 | P.PN ---
Subjective patient is seen for follow-up for acute kidney injury. Patient has underlying chronic kidney disease with baseline creatinine around 1.9-2 mg/dL in 2019. She was admitted with volume overload and is currently being diuresed. No complaints of shortness of breath today. Serum creatinine at 2.3 today. Objective - Vital Signs Vital signs: Vital Signs Temp 98.2 F 02/08/24 13:54 Pulse 75 02/08/24 13:54 Resp 17 02/08/24 08:14 BP 119/74 02/08/24 13:54 Pulse Ox 98 02/08/24 13:54 FiO2 Intake & Output 02/07/24 02/08/24 02/08/24 18:59 06:59 18:59 Other: Voiding Method Toilet Toilet # Voids 3 3 - Exam Patient is awake, comfortable, no acute distress. Examination of the heart S1 and S2 Examination of the lungs decreased breath sounds at the bases Abdomen is soft nontender Examination of lower extremities shows 1+ edema bilaterally Patient is legally blind TELETYPESETTER MONITOR exam shows patient is moving all 4 extremities. - Labs CBC & Chem 7: 02/04/24 16:32 02/08/24 06:22 Labs: Abnormal Lab Results - Last 24 Hours (Table) 02/07/24 02/08/24 02/08/24 Range/Units 21:14 05:40 06:22 Anion Gap 14.20 H (4.00-12.00) mmol/L BUN 36.2 H (9.0-27.0) mg/dL Creatinine 2.3 H (0.6-1.5) mg/dL Est GFR (CKD-EPI) 25 L (>=60) Glucose 141 H (70-110) mg/dL POC Glucose (mg/dL) 194 H 144 H (70-110) mg/dL 02/08/24 Range/Units 11:43 Anion Gap (4.00-12.00) mmol/L BUN (9.0-27.0) mg/dL Creatinine (0.6-1.5) mg/dL Est GFR (CKD-EPI) (>=60) Glucose (70-110) mg/dL POC Glucose (mg/dL) 210 H (70-110) mg/dL Assessment and Plan Assessment: 1. Acute kidney injury, mostly cardiorenal. EF is 20-25%. Patient is being diuresed. Dose of diuretics has been decreased. UA is completely benign. Ultrasound of the kidneys is unremarkable.. No nephrotoxic agents identified. PHILLIP inhibitor's on hold. 2. Chronic kidney disease NKF stage IV with previous creatinine 1.9-2 mg/dL in 2019. previous UA showed 1+ protein in 2018. Etiology is likely diabetic kidney disease. 3. Volume overload 4. Acute CHF with decreased ejection fraction. 5. Cardiomyopathy with EF of 20-25% Plan: continue to diurese patient. Repeat labs in a.m. Patient will need close follow-up as outpatient for CK D. We will try to resume Phillip inhibitors as outpatient. Okay to add SGLT2 inhibitors.
[2024-02-08] MEDS ORDERED: INSULIN DETEMIR (LEVEMIR) 100 UNIT/ML SYR SQ SCH (21:00)
== END 2024-02-08 16:32 | disposition home or self-care (01) | DRG 291 ==
LOC: EC 15:59 → 4SSUR 18:34 → OBSVTOIN 02-06 09:34
PROVIDERS: ADMIT Family Medicine; ATTEND Family Medicine
DX: I13.0 Hypertensive heart and chronic kidney disease with heart failure and stage 1 through stage 4 chronic kidney disease, or unspecified chronic kidney disease (principal); I50.23 Acute on chronic systolic (congestive) heart failure; J96.01 Acute respiratory failure with hypoxia; N17.9 Acute kidney failure, unspecified; Z68.41 Body mass index [BMI] 40.0-44.9, adult; N18.4 Chronic kidney disease, stage 4 (severe); I42.9 Cardiomyopathy, unspecified; D63.1 Anemia in chronic kidney disease; E11.22 Type 2 diabetes mellitus with diabetic chronic kidney disease; E11.319 Type 2 diabetes mellitus with unspecified diabetic retinopathy without macular edema; E11.42 Type 2 diabetes mellitus with diabetic polyneuropathy; H54.8 Legal blindness, as defined in USA; E78.5 Hyperlipidemia, unspecified; E66.01 Morbid (severe) obesity due to excess calories; F17.210 Nicotine dependence, cigarettes, uncomplicated; I49.3 Ventricular premature depolarization; Z79.84 Long term (current) use of oral hypoglycemic drugs; I08.1 Rheumatic disorders of both mitral and tricuspid valves; Z79.4 Long term (current) use of insulin; Z79.899 Other long term (current) drug therapy; Z82.49 Family history of ischemic heart disease and other diseases of the circulatory system; Z90.721 Acquired absence of ovaries, unilateral; Z90.49 Acquired absence of other specified parts of digestive tract
CPT/HCPCS: 36415; 71046; 76770; 78582; 80048; 80053; 81003; 83036; 83605; 83735; 83880; 84484; 85025; 85379; 85610; 85730; 93005; 93306; 94640; 94760; 96374; 96375; 96376; 99285

== ENCOUNTER 2024-05-22 07:55 | Inpatient (IN) | payer MEDICARE, OTHER ==
[2024-05-22] MEDS: IPRATROPIUM-ALBUTEROL 3 ML NEB INHALATION STA (08:38)
--- NOTE | 2024-05-22 08:41 | ED ---
SOB HPI - General Chief Complaint: Shortness of Breath Stated Complaint: SOB Time Seen by Provider: 05/22/24 08:02 Source: patient, RN notes reviewed Mode of arrival: ambulatory - History of Present Illness Initial Comments: This is a 54-year-old female with history of COPD, DM 2 and CHF presenting with cough, fatigue, chills and shortness of breath x 3 days. Patient endorses sudden onset of symptoms with no known cause or recent sick contact. Patient denies use of beta beta agonist, inhaled corticosteroid or other preventative medication for COPD. Patient states cough is occasionally wet. Patient denies fever, body aches, chest pain, Nasal congestion, sore throat, N/V/D, diarrhea, headache, hemoptysis, pleuritic chest pain. MD Complaint: shortness of breath Onset/Timin -: days(s) - Related Data Home Medications Medication Instructions Recorded Confirmed Glimepiride [Amaryl] 4 mg PO DAILY 02/04/24 05/22/24 QUEtiapine [SEROquel] 50 mg PO HS 02/04/24 05/22/24 Insulin Aspart [NovoLOG Flexpen] See Protocol SQ PC-TID PRN 05/22/24 05/22/24 Metoprolol Succinate (ER) [Toprol 25 mg PO DAILY 05/22/24 05/22/24 Xl] Previous Rx's Medication Instructions Recorded Aspirin 81 mg PO DAILY tab 02/08/24 Atorvastatin [Lipitor] 40 mg PO DAILY #30 tab 02/08/24 Bumetanide [BUMEX] 1 mg PO BID@0900,1600 #60 tab 02/08/24 Allergies Allergy/AdvReac Type Severity Reaction Status Date / Time No Known Allergies Allergy Verified 05/22/24 10:35 Review of Systems ROS Statement: Those systems with pertinent positive or pertinent negative responses have been documented in the HPI. ROS Other: All systems not noted in ROS Statement are negative. 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 History of Any Multi-Drug Resistant Organisms: None Reported Past Surgical History: Adenoidectomy, Cholecystectomy, Tonsillectomy Additional Past Surgical History / Comment(s): BENIGN TUMOR & LT OVARY REMOVED, 01/19/15 COLD KNIFE CONE FOR ABNORMAL CERVICAL CELLS, COLONOSCOPY. Past Anesthesia/Blood Transfusion Reactions: No Reported Reaction Past Psychological History: No Psychological Hx Reported Smoking Status: Former smoker Past Alcohol Use History: None Reported Past Drug Use History: Marijuana - Past Family History Father Family Medical History: Diabetes Mellitus Mother Family Medical History: Asthma, Pneumonia Additional Family Medical History / Comment(s): "BREATHING PROBLEMS" General Exam - General Exam Comments Initial Comments: Patient appears dyspneic slight distress and accessory muscle use General appearance: alert, in distress, obese Head exam: Present: atraumatic, normocephalic, normal inspection Eye exam: Present: normal appearance, PERRL, EOMI. Absent: scleral icterus, conjunctival injection, periorbital swelling ENT exam: Present: normal exam, mucous membranes moist Neck exam: Present: normal inspection. Absent: tenderness, meningismus, lymphadenopathy Respiratory exam: Present: respiratory distress, wheezes, rhonchi, accessory muscle use, decreased breath sounds, prolonged expiratory. Absent: rales, stridor Cardiovascular Exam: Present: regular rate, normal rhythm, normal heart sounds. Absent: systolic murmur, diastolic murmur, rubs, gallop, clicks GI/Abdominal exam: Present: soft, normal bowel sounds. Absent: distended, tenderness, guarding, rebound, rigid Extremities exam: Present: normal inspection, full ROM, normal capillary refill. Absent: tenderness, pedal edema, joint swelling, calf tenderness Back exam: Present: normal inspection Neurological exam: Present: alert, oriented X3, CN II-XII intact Psychiatric exam: Present: normal affect, normal mood Skin exam: Present: warm, dry, intact, normal color. Absent: rash Course Vital Signs 05/22/24 05/22/24 05/22/24 07:56 08:15 08:39 Temperature 98.1 F 100.9 F H Pulse Rate 105 H 97 92 Respiratory 28 H Rate Blood Pressure 128/71 117/82 O2 Sat by Pulse 95 93 L Oximetry 05/22/24 05/22/24 05/22/24 08:47 09:29 10:35 Temperature 100.2 F H Pulse Rate 90 93 89 Respiratory 20 19 Rate Blood Pressure 130/73 134/69 O2 Sat by Pulse 95 96 Oximetry 1005/22/24 05/22/24 10:43 11:01 11:12 Temperature 99.4 F Pulse Rate 87 91 Respiratory Rate Blood Pressure O2 Sat by Pulse Oximetry 05/22/24 05/22/24 05/22/24 11:44 12:00 13:37 Temperature 98.6 F 99.0 F Pulse Rate 92 93 91 Respiratory 22 22 21 Rate Blood Pressure 119/81 103/86 127/85 O2 Sat by Pulse 100 97 95 Oximetry 05/22/24 05/22/24 16:34 17:04 Temperature 99.2 F Pulse Rate 93 92 Respiratory 13 19 Rate Blood Pressure 140/93 126/70 O2 Sat by Pulse 95 95 Oximetry Medical Decision Making - Medical Decision Making Was pt. sent in by a medical professional or institution ([facility], SENIOR PRODUCT DESIGNER, urgent ca re, hospital, or snf...) When possible be specific @ -No Did you speak to anyone other than the patient for history (EMS, parent, family, police, friend...)? What history was obtained from this source @ -No Did you review nursing and triage notes (agree or disagree)? Why? @ -I reviewed and agree with nursing and triage notes Were old charts reviewed (outside hosp., previous admission, EMS record, old EKG, old radiological studies, urgent care reports/EKG's, snf records)? Report findings @ -No old charts were reviewed Differential Diagnosis (chest pain, altered mental status, abdominal pain women, abdominal pain men, vaginal bleeding, weakness, fever, dyspnea, syncope, he adache, dizziness, GI bleed, back pain, seizure, CVA, palpatations, mental health, musculoskeletal)? @ -Differential Dyspnea: Coronary syndrome, arrhythmia, tamponade, asthma, COPD, pulmonary embolism, pneumonia, pneumothorax, pulmonary effusion, anaphylaxis, diabetic ketoacidosis, flailed chest, pulmonary contusion, diaphragmatic rupture, anemia, neuromuscular, this is not meant to be an all-inclusive list. EKG interpreted by me (3pts min.). @ -Sinus rhythm without ectopy. X-rays interpreted by me (1pt min.). @ -Chest x-ray showed blunting of costophrenic angles especially on left side with some consolidation noted on left lateral aspect of left basilar lobe CT interpreted by me (1pt min.). @ -None done U/S interpreted by me (1pt. min.). @ -None done What testing was considered but not performed or refused? (CT, X-rays, U/S, labs)? Why? @ -None What meds were considered but not given or refused? Why? @ -None Did you discuss the management of the patient with other professionals (pr ofessionals i.e. , PA, SENIOR PRODUCT DESIGNER, lab, RT, psych nurse, psychotherapist social worker, assurance manager insurance, teacher, engineering officer, casework specialist)? Give summary @ -No Was smoking cessation discussed for >3mins.? @ -No Was critical care preformed (if so, how long)? @ -No Were there social determinants of health that impacted care today? How? (Homelessness, low income, unemployed, alcoholism, drug addiction, transportation, low edu. Level, literacy, decrease access to med. care, [facility], rehab)? @ -No Was there de-escalation of care discussed even if they declined (Discuss DNR or withdrawal of care, Hospice)? DNR status @ -No What co-morbidities impacted this encounter? (DM, HTN, Smoking, COPD, CAD, Cancer, CVA, ARF, Chemo, Hep., AIDS, mental health diagnosis, sleep apnea, morbid obesity)? @ -None Was patient admitted / discharged? Hospital course, mention meds given and route, prescriptions, significant lab abnormalities, going to OR and other pertinent info. @ -Admitted. Lab work and chest x-ray completed. Patient initially given DuoNeb and Solu-Medrol IV. Also started on Rocephin IV following discovery of pneumonia. Patient notes significant relief of dyspnea and other symptoms following treatment, states she is feeling well and is otherwise able to be discharged. Concerning lab findings include BMP and troponin levels were noted and then then trended. Decision to admit patient due to numerous concerning f indings including pulmonary edema, indications of heart failure elevated troponin levels and discovery of pneumonia. Undiagnosed new problem with uncertain prognosis? @ -No Drug Therapy requiring intensive monitoring for toxicity (Heparin, Nitro, Insulin, Cardizem)? @ -No Were any procedures done? @ -No Diagnosis/symptom? @ -Acute heart failure with flash pulmonary edema, elevated troponin, acute pneumonia Acute, or Chronic, or Acute on Chronic? @ -Acute on chronic Uncomplicated (without systemic symptoms) or Complicated (systemic symptoms)? @ -Complicated Side effects of treatment? @ -No Exacerbation, Progression, or Severe Exacerbation? @ -Exacerbation Poses a threat to life or bodily function? How? (Chest pain, [place], [place], pneumonia, PE, COPD, DKA, ARF, appy, cholecystitis, CVA, Diverticulitis, Homicidal, Suicidal, threat to staff... and all critical care pts) @ -Pneumonia, heart failure with pulmonary edema, elevated troponin - Lab Data Result diagrams: 05/22/24 08:54 05/22/24 08:54 Lab Results 05/22/24 05/22/24 05/22/24 Range/Units 08:40 08:54 08:54 WBC 5.6 (3.8-10.6) k/uL RBC 3.87 (3.80-5.40) m/uL Hgb 9.7 L (11.4-16.0) gm/dL Hct 30.3 L (34.0-46.0) % MCV 78.2 L (80.0-100.0) fL MCH 25.2 (25.0-35.0) pg MCHC 32.2 (31.0-37.0) g/dL RDW 17.4 H (11.5-15.5) % Plt Count 284 (150-450) k/uL MPV 8.2 Neutrophils % 79 % Lymphocytes % 11 % Monocytes % 5 % Eosinophils % 4 % Basophils % 0 % Neutrophils # 4.4 (1.3-7.7) k/uL Lymphocytes # 0.6 L (1.0-4.8) k/uL Monocytes # 0.3 (0-1.0) k/uL Eosinophils # 0.2 (0-0.7) k/uL Basophils # 0.0 (0-0.2) k/uL Hypochromasia Moderate Anisocytosis Slight Microcytosis Slight Sodium 139 (137-145) mmol/L Potassium 3.7 (3.5-5.1) mmol/L Chloride 109 H (98-107) mmol/L Carbon Dioxide 23 (22-30) mmol/L Anion Gap 7 mmol/L BUN 27 H (7-17) mg/dL Creatinine 2.28 H (0.52-1.04) mg/dL Est GFR (CKD-EPI)AfAm 28 (>60 ml/min/1.73 sqM) Est GFR (CKD-EPI)NonAf 24 (>60 ml/min/1.73 sqM) Glucose 174 H (74-99) mg/dL Calcium 9.4 (8.4-10.2) mg/dL Total Bilirubin 1.9 H (0.2-1.3) mg/dL AST 38 H (14-36) U/L ALT 22 (4-34) U/L Alkaline Phosphatase 96 (38-126) U/L Troponin I (0.000-0.034) ng/mL NT-Pro-B Natriuret Pep 90178 pg/mL Total Protein 6.7 (6.3-8.2) g/dL Albumin 3.9 (3.5-5.0) g/dL Influenza Type A (PCR) Not Detected (Not Detectd) Influenza Type B (PCR) Not Detected (Not Detectd) RSV (PCR) Not Detected (Not Detectd) SARS-CoV-2 (PCR) Not Detected (Not Detectd) 05/22/24 Range/Units 08:54 WBC (3.8-10.6) k/uL RBC (3.80-5.40) m/uL Hgb (11.4-16.0) gm/dL Hct (34.0-46.0) % MCV (80.0-100.0) fL MCH (25.0-35.0) pg MCHC (31.0-37.0) g/dL RDW (11.5-15.5) % Plt Count (150-450) k/uL MPV Neutrophils % % Lymphocytes % % Monocytes % % Eosinophils % % Basophils % % Neutrophils # (1.3-7.7) k/uL Lymphocytes # (1.0-4.8) k/uL Monocytes # (0-1.0) k/uL Eosinophils # (0-0.7) k/uL Basophils # (0-0.2) k/uL Hypochromasia Anisocytosis Microcytosis Sodium (137-145) mmol/L Potassium (3.5-5.1) mmol/L Chloride (98-107) mmol/L Carbon Dioxide (22-30) mmol/L Anion Gap mmol/L BUN (7-17) mg/dL Creatinine (0.52-1.04) mg/dL Est GFR (CKD-EPI)AfAm (>60 ml/min/1.73 sqM) Est GFR (CKD-EPI)NonAf (>60 ml/min/1.73 sqM) Glucose (74-99) mg/dL Calcium (8.4-10.2) mg/dL Total Bilirubin (0.2-1.3) mg/dL AST (14-36) U/L ALT (4-34) U/L Alkaline Phosphatase (38-126) U/L Troponin I 0.072 H* (0.000-0.034) ng/mL NT-Pro-B Natriuret Pep pg/mL Total Protein (6.3-8.2) g/dL Albumin (3.5-5.0) g/dL Influenza Type A (PCR) (Not Detectd) Influenza Type B (PCR) (Not Detectd) RSV (PCR) (Not Detectd) SARS-CoV-2 (PCR) (Not Detectd) Disposition Clinical Impression: Pneumonia, Heart failure, Pulmonary edema, Elevated troponin Disposition: ADMITTED IP TO THIS [facility] Condition: Fair Is patient prescribed a controlled substance at d/c from ED?: No Decision Date: 05/22/24 Decision Time: 13:25
[2024-05-22 08:59] LABS: Anisocytosis Slight; Basophils % (A) 0 %; Eosinophils # (A) 0.2 k/uL (0-0.7); Eosinophils % (A) 4 %; HCT 30.3 % (34.0-46.0); HGB 9.7 gm/dL (11.4-16.0); Hypochromasia Moderate; Lymphocytes # (A) 0.6 k/uL (1.0-4.8); Lymphocytes % (A) 11 %; MCH 25.2 pg (25.0-35.0); MCHC 32.2 g/dL (31.0-37.0); MCV 78.2 fL (80.0-100.0); Mean Platelet Volume 8.2; Microcytosis Slight; Monocytes # (A) 0.3 k/uL (0-1.0); Monocytes % (A) 5 %; Neutrophils # (A) 4.4 k/uL (1.3-7.7); Neutrophils % (A) 79 %; Platelet Count 284 k/uL (150-450); RBC 3.87 m/uL (3.80-5.40); RDW 17.4 % (11.5-15.5); WBC 5.6 k/uL (3.8-10.6)
--- NOTE | 2024-05-22 09:12 | XR ---
EXAMINATION TYPE: XR chest 2V DATE OF EXAM: 05/22/2024 COMPARISON: 02/04/2024 HISTORY: Shortness of breath TECHNIQUE: Frontal and lateral views of the chest are obtained. FINDINGS: Scattered senescent parenchymal changes noted. Hyperinflation compatible with COPD. Patchy basilar densities greater at the left lower lobe with small effusions. Findings are felt to re flect developing pneumonia. Correlate clinically. Heart size is stable. Mediastinal structures are stable and grossly unremarkable. No evidence for hilar prominence. Degenerative changes dorsal spine. IMPRESSION: 1. Patchy basilar densities greater at the left lower lobe with small effusions. Findings are felt to reflect developing pneumonia. Correlate clinically. [facility], , 05/22/2024 9:10 AM
[2024-05-22 09:15] LABS: ALT 22 U/L (4-34); AST 38 U/L (14-36); African American GFR (CKD) 28 (>60 ml/min/1.73 sqM); Albumin 3.9 g/dL (3.5-5.0); Alkaline Phosphatase 96 U/L (38-126); Anion Gap 7 mmol/L; Blood Urea Nitrogen 27 mg/dL (7-17); Calcium 9.4 mg/dL (8.4-10.2); Carbon Dioxide 23 mmol/L (22-30); Chloride 109 mmol/L (98-107); Glucose 174 mg/dL (74-99); Non-African American GFR(CKD) 24 (>60 ml/min/1.73 sqM); Potassium 3.7 mmol/L (3.5-5.1); Sodium 139 mmol/L (137-145); Total Bilirubin 1.9 mg/dL (0.2-1.3); Total Protein 6.7 g/dL (6.3-8.2)
[2024-05-22 09:23] LABS: NT-Pro-B-Type Natriuretic Pept 18400 pg/mL
[2024-05-22] MEDS: methylPREDNISolone SOD SUCCI 125 MG/2 ML VIAL IV STA (09:35)
[2024-05-22] MEDS: ALBUTEROL NEBULIZED 2.5 MG/3 ML INHALATION STA (11:01)
[2024-05-22] MEDS ORDERED: BUMETANIDE 1 MG TAB PO SCH (16:00)
[2024-05-22] MEDS: FUROSEMIDE 10 MG/ML 4 ML VIAL IV SCH (17:02)
[2024-05-22] MEDS: AZITHROMYCIN 500 MG TAB PO SCH (17:03)
[2024-05-22 20:27] LABS: Glucose,Whole Blood 304 mg/dL (70-110)
[2024-05-22] MEDS: INSULIN ASPART (NovoLOG) 100 UNIT/ML VIAL SQ PRN (20:34)
[2024-05-22] MEDS: QUEtiapine 50 MG TAB PO SCH (23:02)
[2024-05-23 06:19] LABS: Glucose,Whole Blood 339 mg/dL (70-110)
[2024-05-23] MEDS: INSULIN ASPART (NovoLOG) 100 UNIT/ML VIAL SQ SCH (06:37)
[2024-05-23] MEDS: GLIMEPIRIDE 4 MG TAB PO SCH (06:54)
--- NOTE | 2024-05-23 07:55 | XR ---
EXAMINATION TYPE: XR chest 1V portable DATE OF EXAM: 05/23/2024 HISTORY: Shortness of breath. COMPARISON: 05/22/2024 TECHNIQUE: Single view of the chest is submitted. FINDINGS: Demonstrated are scattered senescent parenchymal change. Small effusions with interstitial prominence is nonspecific. Correlate clinically. The heart is stable. Hilar and mediastinal structures are within normal limits. Degenerative changes are seen of the dorsal spine. IMPRESSION: 1. Small effusions with interstitial prominence is nonspecific. Correlate clinically. [facility], , 05/23/2024 7:53 AM
[2024-05-23] MEDS: ATORVASTATIN 40 MG TAB PO SCH (08:23)
[2024-05-23] MEDS: ASPIRIN 81 MG PO SCH (08:23)
[2024-05-23] MEDS: METOPROLOL SUCCINATE (ER) 25 MG TAB.ER.24H PO SCH (08:24)
[2024-05-23 11:12] LABS: Glucose,Whole Blood 151 mg/dL (70-110)
--- NOTE | 2024-05-23 11:15 | P.NPCON ---
History of Present Illness - Reason for Consult chronic renal failure - History of Present Illness Reason for consultation: Chronic kidney disease History of present is: Patient is a 54-year-old female seen in renal consultation for chronic kidney disease. Patient has chronic kidney disease stage IV baseline creatinine in the range of 2-2.5. GFR is currently at baseline. Patient came to the hospital due to worsening shortness of breath for 2 to 3 days. Patient states she was taking Bumex at home. Patient states she felt quite weak and was not even able to shower as this team made her short of breath. She is currently maintained on oral Lasix 80 mg in the morning and 40 mg in the evening. She denies use of nonsteroidals. Patient has longstanding history of diabetes. No vomiting or diarrhea. No chest pain. She denies history of coronary artery disease. Currently she is on room air. Hemodynamically stable. No fever or chills. Vital signs are stable. General: No acute distress. HEENT: Head exam is unremarkable. LUNGS: No audible rhonchi or wheezes. HEART: Rate and Rhythm are regular. ABDOMEN: Obese, nontender. EXTREMITITES: Trace edema. 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 History of Any Multi-Drug Resistant Organisms: None Reported Past Surgical History: Adenoidectomy, Cholecystectomy, Hernia Repair, Tonsillectomy Additional Past Surgical History / Comment(s): BENIGN TUMOR & LT OVARY REMOVED, COLONOSCOPY. Past Anesthesia/Blood Transfusion Reactions: No Reported Reaction Past Psychological History: No Psychological Hx Reported Additional Psychological History / Comment(s): She is blind. Pt has a talking glucometer, talking scanner and talking cell phone. She manages her own medications, keeping bottles always in same order and can recognize pills by shape. Smoking Status: Former smoker Past Alcohol Use History: None Reported Additional Past Alcohol Use History / Comment(s): STARTED SMOKING AT 13 OR 14- 1/2 PACK PER DAY Past Drug Use History: Marijuana Additional Drug Use History / Comment(s): Stopped smoing or using marijuana this year - Past Family History Father Family Medical History: Diabetes Mellitus Mother Family Medical History: Asthma, Pneumonia Additional Family Medical History / Comment(s): "BREATHING PROBLEMS" Medications and Allergies Home Medications Medication Instructions Recorded Confirmed Type Glimepiride [Amaryl] 4 mg PO DAILY 02/04/24 05/22/24 History QUEtiapine [SEROquel] 50 mg PO HS 02/04/24 05/22/24 History Aspirin 81 mg PO DAILY tab 02/08/24 05/22/24 Rx Atorvastatin [Lipitor] 40 mg PO DAILY #30 tab 02/08/24 05/22/24 Rx Bumetanide [BUMEX] 1 mg PO BID@0900,1600 #60 tab 02/08/24 05/22/24 Rx Insulin Aspart [NovoLOG Flexpen] See Protocol SQ PC-TID PRN 05/22/24 05/22/24 History Metoprolol Succinate (ER) [Toprol 25 mg PO DAILY 05/22/24 05/22/24 History Xl] Allergies Allergy/AdvReac Type Severity Reaction Status Date / Time No Known Allergies Allergy Verified 05/22/24 10:35 Physical Exam Vitals: Vital Signs Temp Pulse Pulse Resp BP BP Pulse Ox 05/23/24 08:20 98.0 F 95 20 119/79 95 05/23/24 07:48 96 05/23/24 04:00 91 16 125/72 92 L 05/22/24 23:17 98 F 98 17 119/82 94 L 05/22/24 20:14 98.1 F 107 H 18 130/75 92 L 05/22/24 19:55 99.0 F 97 15 123/73 91 L 05/22/24 19:00 80 18 134/78 95 05/22/24 17:04 99.2 F 92 19 126/70 95 05/22/24 16:34 93 13 140/93 95 05/22/24 13:37 99.0 F 91 21 127/85 95 05/22/24 12:00 93 22 103/86 97 05/22/24 11:44 98.6 F 92 22 119/81 100 05/22/24 11:12 91 Intake and Output 05/22/24 05/23/24 05/23/24 22:59 06:59 14:59 Intake Total 180 Output Total 973 051 9885 Balance -200 -300 -1020 Intake: Oral 180 Output: Urine 179 383 5696 Other: Voiding Method Toilet Weight 122.47 kg 126 kg Results - Lab Results Most recent lab results Calcium 9.4 mg/dL (8.4-10.2) 05/22/24 08:54 05/22/24 08:54 05/22/24 08:54 Assessment and Plan Plan: Assessment: 1. Chronic kidney disease stage IV secondary to cardiorenal syndrome. Baseline creatinine 2-2.5. GFR at baseline. UA from January 2024 was benign. Kidney ultrasound from January 2024 showed atrophic right kidney without any hydronephrosis. 2. Acute on chronic systolic CHF with ejection fraction of 20 to 25%. 3. Volume overload. Better. 4. Diabetes mellitus. 5. Anemia of chronic kidney disease. 6. Hypertension with chronic kidney disease. Controlled. Plan: Maintain current regimen of Lasix. Discussed risks and benefits of SGLT2 inhibitor, including CV and renal protection and also UTIs and hypotension. Add Farxiga 5 mg once daily. Maintain low-salt diet. Avoid nephrotoxins. Continue to monitor renal function and urine output. Check iron studies. Thank you for the consultation. I will continue to follow the patient with you during her hospital stay.
[2024-05-23] MEDS: DAPAGLIFLOZIN PROPANEDIOL 5 MG TABLET PO SCH (11:52)
--- NOTE | 2024-05-23 12:12 | P.CRDCN ---
History of Present Illness Consult date: 05/23/24 Consult reason: congestive heart failure History of present illness: This is a 54-year-old female patient of Dr. Tatum with past medical history of hypertension, hyperlipidemia, chronic systolic heart failure with EF of 20 to 25%, suspected ischemic cardiomyopathy, diabetes mellitus type 2, blindness secondary to diabetic retinopathy, diabetic neuropathy, tobacco use and dependence. We have been asked to evaluate the patient for CHF. Patient states that she has had some shortness of breath for the last couple of days that continued to worsen. She states now she is a lot better. She was started on IV Lasix 40 mg every 8 hours. Blood pressure 119/79, heart rate 95, pulse ox 95% on room air. EKG: Sinus rhythm Chest x-ray: #1 patchy basilar densities greater on the left lower lobe with small effusions. Findings felt to reflect developing pneumonia. #2 small effusions with interstitial prominence is nonspecific Laboratory studies: WBC 5.6, hemoglobin 9.7. BUN 27 creatinine 2.28. Troponins 0.072 and 0.053.. Home cardiac medications: Aspirin 81 mg daily, atorvastatin 20 mg daily, Bumex 1 mg twice daily, metoprolol succinate 25 mg daily Echocardiogram performed 02/04/2024 revealed EF of 20 to 25%, mid to distal anterior anterior septal wall and apical wall hypokinesia, RVSP 35 mmHg, no significant valve dysfunction. Review Of Systems: At the time of my exam: CONSTITUTIONAL: Denies fever or chills. HEENT: Denies blurred vision, vision changes, or eye pain. Denies hemoptysis CARDIOVASCULAR: Denies chest pain. Denies orthopnea. Denies PND. Denies palpitations RESPIRATORY: Reports dyspnea on exertion. Reports shortness of breath. GASTROINTESTINAL: Denies abdominal pain. Denies nausea or vomiting. HEMATOLOGIC: Denies bleeding disorders. GENITOURINARY: Denies any blood in urine. SKIN: Denies puritis. Denies rash. Physical examination: Gen: This is a morbidly obese 54-year-old female in no acute respiratory distress VS: reviewed. HEENT: Head is atraumatic, normocephalic. Pupils equal, round. Sclerae is anicteric. NECK: Supple. No JVD. LUNGS: Clear to auscultation. No wheezes or rhonchi. No intercostal retractions. HEART: Regular rate and rhythm. No murmur. ABDOMEN: Soft No tenderness. EXTREMITIES: Trace lower extremity edema. No calf tenderness. NEUROLOGICAL: Patient is awake, alert and oriented x3. Assessment: Acute on chronic systolic heart failure with known EF of 20 to 25% Suspected ischemic cardiomyopathy Hypertension Hyperlipidemia Acute kidney injury Chronic kidney disease stage III-IV Diabetes mellitus type 2 Blindness Tobacco use and dependence Plan: Resume patient's home cardiac medications with the following changes: Give 1 dose of IV Lasix 40 mg now Resume patient's home dose of Bumex 1 mg twice daily No need to repeat echocardiogram Further recommendations to follow based upon clinical course Smoking cessation. Patient will be provided the [place] quit line information referral at discharge. Thank you kindly for this consultation. Nurse practitioner note has been reviewed, I agree with documented findings and plan of care. Patient was seen and examined. 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 History of Any Multi-Drug Resistant Organisms: None Reported Past Surgical History: Adenoidectomy, Cholecystectomy, Hernia Repair, Tonsillectomy Additional Past Surgical History / Comment(s): BENIGN TUMOR & LT OVARY REMOVED, COLONOSCOPY. Past Anesthesia/Blood Transfusion Reactions: No Reported Reaction Past Psychological History: No Psychological Hx Reported Additional Psychological History / Comment(s): She is blind. Pt has a talking glucometer, talking scanner and talking cell phone. She manages her own medications, keeping bottles always in same order and can recognize pills by shape. Smoking Status: Former smoker Past Alcohol Use History: None Reported Additional Past Alcohol Use History / Comment(s): STARTED SMOKING AT 13 OR 14- 1/2 PACK PER DAY Past Drug Use History: Marijuana Additional Drug Use History / Comment(s): Stopped smoing or using marijuana this year - Past Family History Father Family Medical History: Diabetes Mellitus Mother Family Medical History: Asthma, Pneumonia Additional Family Medical History / Comment(s): "BREATHING PROBLEMS" Medications and Allergies Home Medications Medication Instructions Recorded Confirmed Type Glimepiride [Amaryl] 4 mg PO DAILY 02/04/24 05/22/24 History QUEtiapine [SEROquel] 50 mg PO HS 02/04/24 05/22/24 History Aspirin 81 mg PO DAILY tab 02/08/24 05/22/24 Rx Atorvastatin [Lipitor] 40 mg PO DAILY #30 tab 02/08/24 05/22/24 Rx Bumetanide [BUMEX] 1 mg PO BID@0900,1600 #60 tab 02/08/24 05/22/24 Rx Insulin Aspart [NovoLOG Flexpen] See Protocol SQ PC-TID PRN 05/22/24 05/22/24 History Metoprolol Succinate (ER) [Toprol 25 mg PO DAILY 05/22/24 05/22/24 History Xl] Allergies Allergy/AdvReac Type Severity Reaction Status Date / Time No Known Allergies Allergy Verified 05/22/24 10:35 Physical Exam Vitals: Vital Signs Temp Pulse Pulse Resp BP BP Pulse Ox 05/23/24 08:20 98.0 F 95 20 119/79 95 05/23/24 07:48 96 05/23/24 04:00 91 16 125/72 92 L 05/22/24 23:17 98 F 98 17 119/82 94 L 05/22/24 20:14 98.1 F 107 H 18 130/75 92 L 05/22/24 19:55 99.0 F 97 15 123/73 91 L 05/22/24 19:00 80 18 134/78 95 05/22/24 17:04 99.2 F 92 19 126/70 95 05/22/24 16:34 93 13 140/93 95 05/22/24 13:37 99.0 F 91 21 127/85 95 05/22/24 12:00 93 22 103/86 97 05/22/24 11:44 98.6 F 92 22 119/81 100 05/22/24 11:12 91 05/22/24 11:01 87 05/22/24 10:43 99.4 F 05/22/24 10:35 89 19 134/69 96 05/22/24 09:29 100.2 F H 93 20 130/73 95 Intake and Output 05/22/24 05/23/24 05/23/24 22:59 06:59 14:59 Intake Total 180 Output Total 474 745 6735 Balance -200 -300 -1020 Intake: Oral 180 Output: Urine 086 656 0944 Other: Weight 122.47 kg 126 kg Results 05/22/24 08:54 10/10/24 08:54 Cardiac Enzymes 05/22/24 05/22/24 05/22/24 Range/Units 08:54 08:54 13:36 AST 38 H (14-36) U/L Troponin I 0.072 H* 0.053 H* (0.000-0.034) ng/mL Comprehensive Metabolic Panel 05/22/24 Range/Units 08:54 Sodium 139 (137-145) mmol/L Potassium 3.7 (3.5-5.1) mmol/L Chloride 109 H (98-107) mmol/L Carbon Dioxide 23 (22-30) mmol/L BUN 27 H (7-17) mg/dL Creatinine 2.28 H (0.52-1.04) mg/dL Glucose 174 H (74-99) mg/dL Calcium 9.4 (8.4-10.2) mg/dL AST 38 H (14-36) U/L ALT 22 (4-34) U/L Alkaline Phosphatase 96 (38-126) U/L Total Protein 6.7 (6.3-8.2) g/dL Albumin 3.9 (3.5-5.0) g/dL Current Medications Generic Name Dose Route Start Last Admin Trade Name Freq PRN Reason Stop Dose Admin Aspirin 81 mg 05/23/24 09:00 05/23/24 08:23 Aspirin 81 Mg PO 81 mg DAILY ELENA Administration Atorvastatin Calcium 40 mg 05/23/24 09:00 05/23/24 08:23 Atorvastatin 40 Mg Tab PO 40 mg DAILY ELENA Administration Azithromycin 500 mg 05/22/24 16:30 05/22/24 17:03 Azithromycin 500 Mg Tab PO 05/23/24 16:31 500 mg Q24H ELENA Administration Protocol Furosemide 40 mg 05/22/24 16:00 05/23/24 08:23 Furosemide 10 Mg/Ml 4 Ml Vial IV 40 mg Q8H ELENA Administration Glimepiride 4 mg 05/23/24 07:30 05/23/24 06:54 Glimepiride 4 Mg Tab PO 4 mg AC-BRKFST ELENA Administration Insulin Aspart 0 unit 05/23/24 07:30 05/23/24 06:37 Insulin Aspart (Novolog) 100 Unit/Ml Vial SQ 10 unit ACHS ELENA Administration Protocol Metoprolol Succinate 25 mg 05/23/24 09:00 05/23/24 08:24 Metoprolol Succinate (Er) 25 Mg Tab.Er.24h PO 25 mg DAILY ELENA Administration Quetiapine Fumarate 50 mg 05/22/24 21:00 05/22/24 23:02 Quetiapine 50 Mg Tab PO 50 mg HS ELENA Administration Intake and Output 05/22/24 05/23/24 05/23/24 22:59 06:59 14:59 Intake Total 180 Output Total 845 260 0988 Balance -200 -300 -1020 Intake: Oral 180 Output: Urine 554 484 6329 Other: Weight 122.47 kg 126 kg 05/22/24 08:54 05/22/24 08:54
--- NOTE | 2024-05-23 13:09 | P.HPIM ---
History of Present Illness H&P Date: 05/23/24 Chief Complaint: Chest pain, shortness of breath This is a 54-year-old female with past medical history significant for diabetes mellitus type 2 with diabetic neuropathy and retinopathy-legally blind, morbid obesity, chronic CHFcardiomyopathy with EF of 20-25%, hypertension, hyperlipidemia, COPD, ongoing nicotine dependence, presented to the ER with complaints of progressive shortness of breath over the last couple days, worsened with exertion, accompanied by cough. Denies nausea, vomiting or abdominal pain. Denies chest pain, palpitations. Troponin 0.072, 0.053 .EKG reported sinus rhythm.chest x-ray suggested patchy basilar densities greater at the left lower lobe with small effusions; repeat chest x-ray reported small effusions with interstitial prominence nonspecific. Empiric antibiotics initiated for potential pneumonia with procalcitonin ordered. IV Lasix initiated in the ER with significant clinical improvement. Vital signs stable, maintaining O2 sats of 95% on room air. Breathing easier this morning. Afebrile, Tmax 100.9, normal WBC. Hemoglobin 9.7, platelets 284, sodium 139, potassium 3.7, bicarb 23,, BUN 27, creatinine 2.28. proBNP 18,400. Echo of 02/04/2024 reported EF of 20 to 25%, mid to distal anterior anterior septal wall and apical wall hypokinesia, RVSP 35 mmHg, no significant valve dysfunction. Review of Systems ROS Statement: Those systems with pertinent positive or pertinent negative responses have been documented in the HPI. ROS Other: All systems not noted in ROS Statement are negative. 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 History of Any Multi-Drug Resistant Organisms: None Reported Past Surgical History: Adenoidectomy, Cholecystectomy, Hernia Repair, Tonsillectomy Additional Past Surgical History / Comment(s): BENIGN TUMOR & LT OVARY REMOVED, COLONOSCOPY. Past Anesthesia/Blood Transfusion Reactions: No Reported Reaction Past Psychological History: No Psychological Hx Reported Additional Psychological History / Comment(s): She is blind. Pt has a talking glucometer, talking scanner and talking cell phone. She manages her own medications, keeping bottles always in same order and can recognize pills by shape. Smoking Status: Former smoker Past Alcohol Use History: None Reported Additional Past Alcohol Use History / Comment(s): STARTED SMOKING AT 13 OR 14- 1/2 PACK PER DAY Past Drug Use History: Marijuana Additional Drug Use History / Comment(s): Stopped smoing or using marijuana this year - Past Family History Father Family Medical History: Diabetes Mellitus Mother Family Medical History: Asthma, Pneumonia Additional Family Medical History / Comment(s): "BREATHING PROBLEMS" Medications and Allergies Home Medications Medication Instructions Recorded Confirmed Type Glimepiride [Amaryl] 4 mg PO DAILY 02/04/24 05/22/24 History QUEtiapine [SEROquel] 50 mg PO HS 02/04/24 05/22/24 History Aspirin 81 mg PO DAILY tab 02/08/24 05/22/24 Rx Atorvastatin [Lipitor] 40 mg PO DAILY #30 tab 02/08/24 05/22/24 Rx Bumetanide [BUMEX] 1 mg PO BID@0900,1600 #60 tab 02/08/24 05/22/24 Rx Insulin Aspart [NovoLOG Flexpen] See Protocol SQ PC-TID PRN 05/22/24 05/22/24 History Metoprolol Succinate (ER) [Toprol 25 mg PO DAILY 05/22/24 05/22/24 History Xl] Allergies Allergy/AdvReac Type Severity Reaction Status Date / Time No Known Allergies Allergy Verified 05/22/24 10:35 Physical Exam Vitals: Vital Signs Temp Pulse Pulse Resp BP BP Pulse Ox 05/23/24 11:48 78 18 107/70 97 05/23/24 08:20 98.0 F 95 20 119/79 95 05/23/24 07:48 96 05/23/24 04:00 91 16 125/72 92 L 05/22/24 23:17 98 F 98 17 119/82 94 L 05/22/24 20:14 98.1 F 107 H 18 130/75 92 L 05/22/24 19:55 99.0 F 97 15 123/73 91 L 05/22/24 19:00 80 18 134/78 95 05/22/24 17:04 99.2 F 92 19 126/70 95 05/22/24 16:34 93 13 140/93 95 05/22/24 13:37 99.0 F 91 21 127/85 95 Intake and Output 05/22/24 05/23/24 05/23/24 22:59 06:59 14:59 Intake Total 180 Output Total 439 408 0812 Balance -200 -300 -1020 Intake: Oral 180 Output: Urine 562 788 5964 Other: Voiding Method Toilet Weight 122.47 kg 126 kg VITAL SIGNS: [As above] GENERAL: Morbidly obese female, legally blind, alert and oriented x 3, sitting up on stretcher, no acute distress HEENT: Atraumatic, normocephalic, pupils equal, anicteric sclera. NECK: Supple, no JVD. No thyroid enlargement. No LNs CARDIOVASCULAR: S1, S2 regular.No murmur RESPIRATION: Unlabored equal air entry, right basilar crackles with expiratory wheeze ABDOMEN: Soft, nontender, nondistended. No guarding. no appreciable organomegaly. +BS LEGS: Mild bilateral lower extremity edema, no calf tenderness. NERVOUS SYSTEM: Cranial N 2-12 grossly normal. Skin: Warm and dry,no rash noted. Results CBC & Chem 7: 05/22/24 08:54 05/22/24 08:54 Labs: Abnormal Lab Results - Last 24 Hours (Table) 05/22/24 05/22/24 05/23/24 Range/Units 13:36 20:25 06:17 POC Glucose (mg/dL) 304 H 339 H (70-110) mg/dL Troponin I 0.053 H* (0.000-0.034) ng/mL 05/23/24 Range/Units 11:11 POC Glucose (mg/dL) 151 H (70-110) mg/dL Troponin I (0.000-0.034) ng/mL Thrombosis Risk Factor Assmnt - Choose All That Apply Any of the Below Risk Factors Present?: Yes Each Factor Represents 1 point: Abnormal pulmonary function (COPD), Acute PR, Obesity (BMI >25) Other Risk Factors: No Other congenital or acquired thrombophilia - If yes, enter type in comment: No Thrombosis Risk Factor Assessment Total Risk Factor Score: 3 Thrombosis Risk Factor Assessment Level: Moderate Risk Assessment and Plan Assessment: Acute on chronic CHF exacerbation, systolic dysfunction Possible community-acquired pneumonia, procalcitonin pending Cardiomyopathy, EF 20-25%, ischemic type suspected as per cardiology Progressive dyspnea on exertion with orthopnea secondary to the above Chronic kidney disease IV, secondary to cardiorenal syndrome ,baseline creatinine 2-2.5, Anemia of chronic kidney disease Diabetes mellitus type 2, hemoglobin A1c, hemoglobin A1c pending Diabetic retinopathy, legally blind Diabetic neuropathy Nicotine dependence Hypertension Hyperlipidemia Strong family history of vascular disease, CAD, PR, CVAs Morbid obesity, BMI 42 Continue IV push diuretics.close monitoring of renal function, electrolytes with repeat labs ordered for a.m. empiric antibiotics, procalcitonin pending .diuretics as per cardiology. smoking cessation reinforced. Prognosis guarded given multiple complex medical issues. The impression and plan of care has been dictated as directed. : I performed a history and examination of this patient, discussed the same with the dictator. I agree with the dictator's note ,documented as a scribe. Any additional findings or plans will be noted.
[2024-05-23 14:10] VITALS: BMI 42.2
[2024-05-23] MEDS: BUMETANIDE 1 MG TAB PO SCH (15:14)
[2024-05-23] MEDS ORDERED: FUROSEMIDE 40 MG TAB PO SCH (16:00)
[2024-05-23 16:18] LABS: Glucose,Whole Blood 101 mg/dL (70-110)
[2024-05-23 19:49] LABS: Glucose,Whole Blood 343 mg/dL (70-110)
[2024-05-23] MEDS: LOSARTAN 25 MG TAB PO SCH (21:05)
[2024-05-24 06:10] LABS: Glucose,Whole Blood 139 mg/dL (70-110)
[2024-05-24 07:42] LABS: African American GFR (CKD) 25 (>60 ml/min/1.73 sqM); Anion Gap 5 mmol/L; Blood Urea Nitrogen 43 mg/dL (7-17); Calcium 8.9 mg/dL (8.4-10.2); Carbon Dioxide 29 mmol/L (22-30); Chloride 106 mmol/L (98-107); Glucose 114 mg/dL (74-99); Non-African American GFR(CKD) 21 (>60 ml/min/1.73 sqM); Potassium 3.7 mmol/L (3.5-5.1); Sodium 140 mmol/L (137-145)
[2024-05-24 08:24] VITALS: RESP 17
--- NOTE | 2024-05-24 08:57 | P.PN ---
Subjective This is a 54-year-old female with past medical history significant for diabetes mellitus type 2 with diabetic neuropathy and retinopathy-legally blind, morbid obesity, chronic CHFcardiomyopathy with EF of 20-25%, hypertension, hyperlipidemia, COPD, ongoing nicotine dependence, presented to the ER with complaints of progressive shortness of breath over the last couple days, worsened with exertion, accompanied by cough. Denies nausea, vomiting or abdominal pain. Denies chest pain, palpitations. Troponin 0.072, 0.053 .EKG reported sinus rhythm.chest x-ray suggested patchy basilar densities greater at the left lower lobe with small effusions; repeat chest x-ray reported small effusions with interstitial prominence nonspecific. Empiric antibiotics initiated for potential pneumonia with procalcitonin ordered. IV Lasix initiated in the ER with significant clinical improvement. Vital signs stable, maintaining O2 sats of 95% on room air. Breathing easier this morning. Afebrile, Tmax 100.9, normal WBC. Hemoglobin 9.7, platelets 284, sodium 139, potassium 3.7, bicarb 23,, BUN 27, creatinine 2.28. proBNP 18,400. Echo of 02/04/2024 reported EF of 20 to 25%, mid to distal anterior anterior septal wall and apical wall hypokinesia, RVSP 35 mmHg, no significant valve dysfunction. 05/24 Patient breathing is better She still has bilateral leg edema but no significant dyspnea Patient had fever on admission of 100.9 on 05/22, no fever yesterday or this morning. Patient denies urinary symptoms. No diarrhea or vomiting. No rash. No other obvious source of infection She is hemodynamically stable Creatinine went up today 2.2 up to 2.4, baseline 2.1-2.5, nephrology team on the case. Hemoglobin 9.1 Pro- Calcitonin is negative at 0.23 Troponin is mildly elevated as well as proBNP 43984 hemoglobin A1c is elevated 8.4, patient informed she needs better Blood glucose control and she agrees Blood cultures ordered and is pending we will repeat pro- Calcitonin tomorrow as well as CRP Currently patient monitored off antibiotic with no further fever. Also check repeat WBC tomorrow, on admission was within the reference range Review of systems CONSTITUTIONAL: No fever, no malaise, no fatigue. HEENT: No recent visual problems or hearing problems. Denied any sore throat. HEMATOLOGICAL: Denies any bleeding or petechiae. GENITOURINARY: Denies any burning micturition, frequency, or urgency. MUSCULOSKELETAL/RHEUMATOLOGICAL: Denies any joint pain, swelling, or any muscle pain. ENDOCRINE: Denies any polyuria or polydipsia. Active Medications Generic Name Dose Route Start Last Admin Trade Name Freq PRN Reason Stop Dose Admin Aspirin 81 mg 05/23/24 09:00 05/23/24 08:23 Aspirin 81 Mg PO 81 mg DAILY ELENA Administration Atorvastatin Calcium 40 mg 05/23/24 09:00 05/23/24 08:23 Atorvastatin 40 Mg Tab PO 40 mg DAILY ELENA Administration Bumetanide 1 mg 05/23/24 16:00 05/23/24 15:14 Bumetanide 1 Mg Tab PO 1 mg BID@0900,1600 ELENA Administration Dapagliflozin 5 mg 05/23/24 11:15 05/23/24 11:52 Dapagliflozin Propanediol 5 Mg Tablet PO 5 mg DAILY ELENA Administration Furosemide 80 mg 05/24/24 09:00 Furosemide 80 Mg Tab PO DAILY [facility] Glimepiride 4 mg 05/23/24 07:30 05/24/24 06:56 Glimepiride 4 Mg Tab PO 4 mg AC-BRKFST [facility] Administration Insulin Aspart 0 unit 05/23/24 07:30 05/24/24 06:54 Insulin Aspart (Novolog) 100 Unit/Ml Vial SQ Not Given ACHS [facility] Protocol Losartan Potassium 25 mg 05/23/24 21:00 05/23/24 21:05 Losartan 25 Mg Tab PO Not Given HS [facility] Metoprolol Succinate 25 mg 05/23/24 09:00 05/23/24 08:24 Metoprolol Succinate (Er) 25 Mg Tab.Er.24h PO 25 mg DAILY ELENA Administration Quetiapine Fumarate 50 mg 05/22/24 21:00 05/23/24 21:05 Quetiapine 50 Mg Tab PO Not Given HS [facility] Objective - Vital Signs Vital signs: Vital Signs Temp 98.3 F 05/24/24 08:20 Pulse 74 05/24/24 08:20 Resp 17 05/24/24 08:20 BP 132/62 05/24/24 08:20 Pulse Ox 96 05/24/24 08:20 FiO2 Intake & Output 05/23/24 05/24/24 05/24/24 18:59 06:59 18:59 Intake Total 498 540 Output Total 1675 1700 Balance -1177 -1160 Weight 126 kg 129.9 kg Intake: Oral 498 540 Output: Urine 1675 1700 Other: Voiding Method Toilet Toilet - Exam GENERAL: The patient is alert and oriented x3, not in any acute distress. Well developed, well nourished. HEENT: Pupils are round and equally reacting to light. EOMI. No scleral icterus. No conjunctival pallor. Normocephalic, atraumatic. No pharyngeal erythema. No thyromegaly. CARDIOVASCULAR: S1 and S2 present. No murmurs, rubs, or gallops. PULMONARY: Chest is clear to auscultation, no wheezing , no crackles. ABDOMEN: Soft, nontender, nondistended, normoactive bowel sounds. No palpable organomegaly. MUSCULOSKELETAL: No joint swelling or deformity. EXTREMITIES: No cyanosis, clubbing, or pedal edema. NEUROLOGICAL: Gross neurological examination did not reveal any focal deficits. SKIN: No rashes. no petechiae. - Labs CBC & Chem 7: 05/22/24 08:54 05/24/24 06:14 Labs: Abnormal Lab Results - Last 24 Hours (Table) 05/22/24 05/23/24 05/23/24 Range/Units 08:54 11:11 19:47 BUN (7-17) mg/dL Creatinine (0.52-1.04) mg/dL Glucose (74-99) mg/dL POC Glucose (mg/dL) 151 H 343 H (70-110) mg/dL Hemoglobin A1c 8.6 H (<=6.0) % 05/24/24 05/24/24 Range/Units 06:08 06:14 BUN 43 H (7-17) mg/dL Creatinine 2.49 H (0.52-1.04) mg/dL Glucose 114 H (74-99) mg/dL POC Glucose (mg/dL) 139 H (70-110) mg/dL Hemoglobin A1c (<=6.0) % Microbiology - Last 24 Hours (Table) 05/22/24 10:00 Blood Culture - Preliminary Blood Assessment and Plan Assessment: Acute on chronic CHF with low ejection fraction 20 to 25% Elevated troponins thought secondary to ischemic cardiomyopathy Chronic kidney disease stage IV Mild period of fever on admission, could be viral. No evidence of bacterial infection so far Diabetes mellitus with hyperglycemia Plan: Continue with diuretics, currently on oral Lasix and Bumex, discussed with staff Diuretic management is deferred to cardiology and nephrology team on the case Patient had a fever on admission, no more fever, keep monitoring off antibiotic. Check procalcitonin and plan to follow-up blood culture Labs and medication were reviewed.. Continue same treatment. Continue with symptomatic treatment. Resume home medication. Monitor labs and vitals. DVT and GI prophylaxis. Further recommendations as per clinical course of the patient DVT prophylaxis: Subcutaneous heparin GI Prophylaxis: Pepcid Prognosis is guarded
[2024-05-24] MEDS ORDERED: FAMOTIDINE 20 MG/2 ML VIAL IV SCH (09:00)
[2024-05-24 11:42] LABS: Glucose,Whole Blood 124 mg/dL (70-110)
[2024-05-24] MEDS: HEPARIN SODIUM,PORCINE 5,000 UNIT/ML 1 ML VIAL SQ SCH (12:00)
--- NOTE | 2024-05-24 12:40 | P.PN ---
Subjective Progress Note Date: 05/24/24 Patient seen in follow-up for CKD. Feeling well and no new complaints. ital signs are stable. General: No acute distress. HEENT: Head exam is unremarkable. LUNGS: No audible rhonchi or wheezes. HEART: Rate and Rhythm are regular. ABDOMEN: Obese, nontender. EXTREMITITES: Trace edema. Objective - Vital Signs Vital signs: Vital Signs Temp 98.3 F 05/24/24 08:20 Pulse 74 05/24/24 08:20 Resp 17 05/24/24 08:20 BP 132/62 05/24/24 08:20 Pulse Ox 96 05/24/24 08:20 FiO2 Intake & Output 05/23/24 05/24/24 05/24/24 18:59 06:59 18:59 Intake Total 498 540 118 Output Total 1675 1700 Balance -1177 -1160 118 Weight 126 kg 129.9 kg Intake: Oral 498 540 118 Output: Urine 1675 1700 Other: Voiding Method Toilet Toilet - Labs CBC & Chem 7: 05/22/24 08:54 05/24/24 06:14 Labs: Abnormal Lab Results - Last 24 Hours (Table) 05/22/24 05/23/24 05/23/24 Range/Units 08:54 11:11 19:47 BUN (7-17) mg/dL Creatinine (0.52-1.04) mg/dL Glucose (74-99) mg/dL POC Glucose (mg/dL) 151 H 343 H (70-110) mg/dL Hemoglobin A1c 8.6 H (<=6.0) % 05/24/24 05/24/24 Range/Units 06:08 06:14 BUN 43 H (7-17) mg/dL Creatinine 2.49 H (0.52-1.04) mg/dL Glucose 114 H (74-99) mg/dL POC Glucose (mg/dL) 139 H (70-110) mg/dL Hemoglobin A1c (<=6.0) % Microbiology - Last 24 Hours (Table) 05/22/24 10:00 Blood Culture - Preliminary Blood Assessment and Plan Assessment: 1. Chronic kidney disease stage IV secondary to cardiorenal syndrome. Baseline creatinine 2.0-2.5. GFR at baseline. UA from January 2024 was benign. Kidney ultrasound from January 2024 showed atrophic right kidney without any hydronephrosis. 2. Acute on chronic systolic CHF with ejection fraction of 20 to 25%. 3. Volume overload. Better. 4. Diabetes mellitus. 5. Anemia of chronic kidney disease. 6. Hypertension with chronic kidney disease. Controlled. Plan: Maintain current regimen of Bumex Farxiga 5 mg once daily. Maintain low-salt diet. Clear for discharge from nephrology standpoint
[2024-05-24] MEDS: FUROSEMIDE 80 MG TAB PO SCH (13:55)
[2024-05-24] MEDS: FAMOTIDINE 20 MG/2 ML VIAL IV SCH (14:47)
[2024-05-24] MEDS: ISOSORBIDE MONONITRATE ER 30 MG TAB.ER.24H PO SCH (14:52)
[2024-05-24 16:55] LABS: Glucose,Whole Blood 193 mg/dL (70-110)
[2024-05-24 17:07] LABS: % Iron Saturation 4.29 (12.00-45.00); Ferritin 57.6 ng/mL (10.0-291.0)
--- NOTE | 2024-05-24 17:59 | P.CRDCN ---
History of Present Illness Consult date: 05/24/24 History of present illness: This is a 54-year-old female patient of Dr. Tatum with past medical history of hypertension, hyperlipidemia, chronic systolic heart failure with EF of 20 to 25%, suspected ischemic cardiomyopathy, diabetes mellitus type 2, blindness secondary to diabetic retinopathy, diabetic neuropathy, tobacco use and dependence. We have been asked to evaluate the patient for CHF. Patient states that she has had some shortness of breath for the last couple of days that continued to worsen. She states now she is a lot better. She was started on IV Lasix 40 mg every 8 hours. Blood pressure 119/79, heart rate 95, pulse ox 95% on room air. EKG: Sinus rhythm Chest x-ray: #1 patchy basilar densities greater on the left lower lobe with small effusions. Findings felt to reflect developing pneumonia. #2 small effusions with interstitial prominence is nonspecific Laboratory studies: WBC 5.6, hemoglobin 9.7. BUN 27 creatinine 2.28. Troponins 0.072 and 0.053.. Home cardiac medications: Aspirin 81 mg daily, atorvastatin 20 mg daily, Bumex 1 mg twice daily, metoprolol succinate 25 mg daily Echocardiogram performed 02/04/2024 revealed EF of 20 to 25%, mid to distal anterior anterior septal wall and apical wall hypokinesia, RVSP 35 mmHg, no significant valve dysfunction. Progress note May 24, 2024 Patient seen and examined at bedside this a.m. she appears euvolemic. She reports that her shortness of breath is improved significantly. Her labs shows a creatinine of 2.49, BUN 43, yesterday creatinine was 2.28, hemoglobin 9.7, MCV 78.2 Physical examination: Gen: This is a morbidly obese 54-year-old female in no acute respiratory distr ess VS: reviewed. HEENT: Head is atraumatic, normocephalic. Pupils equal, round. Sclerae is anicteric. NECK: Supple. No JVD. LUNGS: Clear to auscultation. No wheezes or rhonchi. No intercostal retr actions. HEART: Regular rate and rhythm. No murmur. ABDOMEN: Soft No tenderness. EXTREMITIES: Trace lower extremity edema. No calf tenderness. NEUROLOGICAL: Patient is awake, alert and oriented x3. Assessment: Acute on chronic systolic heart failure with known EF of 20 to 25% Suspected ischemic cardiomyopathy Hypertension Hyperlipidemia Acute kidney injury Chronic kidney disease stage III-IV Diabetes mellitus type 2 Blindness Tobacco use and dependence Noncompliance Plan: Resume Bumex 100 g p.o. twice daily, aspirin 81 mg, Lipitor 40 mg, Farxiga 5 mg Imdur 30 mg, metoprolol succinate 25 mg daily Discontinue losartan because of GFR less than 30 Start iron sulfate for low MCV and anemia Patient eventually needs workup for ischemic evaluation. She also needs primary prevention ICD. Both of this patient has denied in the past. I would like input from the nephrology team to understand when would it be appropriate for us to perform cardiac cath with low GFR and high creatinine, and how can her lower her risk to prevent her to go to renal failure. Smoking cessation. Patient will be provided the [place] quit line information referral at discharge. Patient is cleared to be discharged from cardiovascular standpoint with outpatient follow-up. I have given her a prescription for getting NT-proBNP, lipid, CMP, CBC checked in 1 week. Past Medical History Past Medical History: COPD, Diabetes Mellitus, Eye Disorder, Hyperlipidemia, Hy pertension Additional Past Medical History / Comment(s): IDDM type II, blindness d/t diabetes with R eye having only 2% vision, current sore on bottom R foot, bilateral neuropathy hands/feet. History of Any Multi-Drug Resistant Organisms: None Reported Past Surgical History: Adenoidectomy, Cholecystectomy, Hernia Repair, To nsillectomy Additional Past Surgical History / Comment(s): BENIGN TUMOR & LT OVARY REMOVED, COLONOSCOPY. Past Anesthesia/Blood Transfusion Reactions: No Reported Reaction Past Psychological History: No Psychological Hx Reported Additional Psychological History / Comment(s): She is blind. Pt has a talking glucometer, talking scanner and talking cell phone. She manages her own medications, keeping bottles always in same order and can recognize pills by shape. Smoking Status: Former smoker Past Alcohol Use History: None Reported Additional Past Alcohol Use History / Comment(s): STARTED SMOKING AT 13 OR 14- 1/2 PACK PER DAY Past Drug Use History: Marijuana Additional Drug Use History / Comment(s): Stopped smoing or using marijuana this year - Past Family History Father Family Medical History: Diabetes Mellitus Mother Family Medical History: Asthma, Pneumonia Additional Family Medical History / Comment(s): "BREATHING PROBLEMS" Medications and Allergies Home Medications Medication Instructions Recorded Confirmed Type Glimepiride [Amaryl] 4 mg PO DAILY 02/04/24 05/22/24 History QUEtiapine [SEROquel] 50 mg PO HS 02/04/24 05/22/24 History Aspirin 81 mg PO DAILY tab 02/08/24 05/22/24 Rx Atorvastatin [Lipitor] 40 mg PO DAILY #30 tab 02/08/24 05/22/24 Rx Bumetanide [BUMEX] 1 mg PO BID@0900,1600 #60 tab 02/08/24 05/22/24 Rx Insulin Aspart [NovoLOG Flexpen] See Protocol SQ PC-TID PRN 05/22/24 05/22/24 History Metoprolol Succinate (ER) [Toprol 25 mg PO DAILY 05/22/24 05/22/24 History Xl] Allergies Allergy/AdvReac Type Severity Reaction Status Date / Time No Known Allergies Allergy Verified 05/22/24 10:35 Physical Exam Vitals: Vital Signs Temp Pulse Resp BP Pulse Ox 05/24/24 14:00 78 17 05/24/24 11:45 98.2 F 78 17 128/77 94 L 05/24/24 08:20 98.3 F 74 17 132/62 96 05/24/24 08:00 74 17 05/24/24 04:00 98 F 65 16 119/74 98 05/24/24 00:00 97.8 F 16 118/72 95 05/23/24 20:00 98 F 79 18 120/77 97 Intake and Output 05/24/24 05/24/24 05/24/24 06:59 14:59 22:59 Intake Total 540 236 Output Total 900 600 Balance -360 -364 Intake: Oral 540 236 Output: Urine 900 600 Other: Voiding Method Toilet Toilet Weight 129.9 kg Results 05/22/24 08:54 05/24/24 06:14 Comprehensive Metabolic Panel 05/24/24 Range/Units 06:14 Sodium 140 (137-145) mmol/L Potassium 3.7 (3.5-5.1) mmol/L Chloride 106 (98-107) mmol/L Carbon Dioxide 29 (22-30) mmol/L BUN 43 H (7-17) mg/dL Creatinine 2.49 H (0.52-1.04) mg/dL Glucose 114 H (74-99) mg/dL Calcium 8.9 (8.4-10.2) mg/dL Current Medications Generic Name Dose Route Start Last Admin Trade Name Nadira PRN Reason Stop Dose Admin Aspirin 81 mg 05/23/24 09:00 05/24/24 12:00 Aspirin 81 Mg PO 81 mg DAILY [facility] Administration Atorvastatin Calcium 40 mg 05/23/24 09:00 05/24/24 12:00 Atorvastatin 40 Mg Tab PO 40 mg DAILY [facility] Administration Bumetanide 1 mg 05/23/24 16:00 05/24/24 17:12 Bumetanide 1 Mg Tab PO Not Given BID@0900,1600 [facility] Dapagliflozin 5 mg 05/23/24 11:15 05/24/24 12:02 Dapagliflozin Propanediol 5 Mg Tablet PO 5 mg DAILY [facility] Administration Famotidine 20 mg 05/24/24 12:45 05/24/24 14:47 Famotidine 20 Mg/2 Ml Vial IV Not Given DAILY [facility] Glimepiride 4 mg 05/23/24 07:30 05/24/24 06:56 Glimepiride 4 Mg Tab PO 4 mg [id number] [facility] Administration Heparin Sodium (Porcine) 5,000 unit 05/24/24 09:00 05/24/24 12:00 Heparin Sodium,Porcine 5,000 Unit/Ml 1 Ml Vial SQ Not Given Q12HR [facility] Insulin Aspart 0 unit 05/23/24 07:30 05/24/24 17:24 Insulin Aspart (Novolog) 100 Unit/Ml Vial SQ Not Given ACHS [facility] Protocol Isosorbide Mononitrate 30 mg 05/24/24 14:45 05/24/24 14:52 Isosorbide Mononitrate Er 30 Mg Tab.Er.24h PO 30 mg DAILY [facility] Administration Metoprolol Succinate 25 mg 05/23/24 09:00 05/24/24 12:00 Metoprolol Succinate (Er) 25 Mg Tab.Er.24h PO 25 mg DAILY [facility] Administration Quetiapine Fumarate 50 mg 05/22/24 21:00 05/23/24 21:05 Quetiapine 50 Mg Tab PO Not Given HS [facility] Intake and Output 05/24/24 05/24/24 05/24/24 06:59 14:59 22:59 Intake Total 540 236 Output Total 900 600 Balance -360 -364 Intake: Oral 540 236 Output: Urine 900 600 Other: Voiding Method Toilet Toilet Weight 129.9 kg 05/22/24 08:54 05/24/24 06:14
[2024-05-24 19:59] LABS: Glucose,Whole Blood 284 mg/dL (70-110)
[2024-05-25 06:04] LABS: Glucose,Whole Blood 106 mg/dL (70-110)
[2024-05-25 06:36] LABS: Anisocytosis Slight; Basophils % (A) 0 %; Eosinophils # (A) 0.3 k/uL (0-0.7); Eosinophils % (A) 5 %; HCT 29.5 % (34.0-46.0); HGB 9.3 gm/dL (11.4-16.0); Hypochromasia Marked; Lymphocytes # (A) 1.3 k/uL (1.0-4.8); Lymphocytes % (A) 21 %; MCH 24.9 pg (25.0-35.0); MCHC 31.5 g/dL (31.0-37.0); MCV 79.2 fL (80.0-100.0); Mean Platelet Volume 7.9; Microcytosis Slight; Monocytes # (A) 0.3 k/uL (0-1.0); Monocytes % (A) 6 %; Neutrophils # (A) 4.1 k/uL (1.3-7.7); Neutrophils % (A) 68 %; Platelet Count 294 k/uL (150-450); RBC 3.72 m/uL (3.80-5.40); RDW 17.4 % (11.5-15.5); WBC 6.1 k/uL (3.8-10.6)
--- NOTE | 2024-05-25 11:24 | P.PN ---
Subjective Progress Note Date: 05/25/24 Patient seen in follow-up for CKD. Feeling well and no new complaints. Wants to go home. ital signs are stable. General: No acute distress. HEENT: Head exam is unremarkable. LUNGS: No audible rhonchi or wheezes. HEART: Rate and Rhythm are regular. ABDOMEN: Obese, nontender. EXTREMITITES: Trace edema. Objective - Vital Signs Vital signs: Vital Signs Temp 97.9 F 05/25/24 08:15 Pulse 72 05/25/24 08:15 Resp 17 05/25/24 08:15 BP 113/73 05/25/24 08:15 Pulse Ox 95 05/25/24 08:15 FiO2 Intake & Output 05/24/24 05/25/24 05/25/24 18:59 06:59 18:59 Intake Total 354 450 240 Output Total 8244 811 2528 Balance -296 -829 -256 Weight 128.1 kg Intake: Oral 354 450 240 Output: Urine 5002 141 6360 Other: Voiding Method Toilet Toilet Toilet - Labs CBC & Chem 7: 05/25/24 06:00 05/24/24 06:14 Labs: Abnormal Lab Results - Last 24 Hours (Table) 05/23/24 05/24/24 05/24/24 Range/Units 06:30 11:40 16:53 RBC (3.80-5.40) m/uL Hgb (11.4-16.0) gm/dL Hct (34.0-46.0) % MCV (80.0-100.0) fL MCH (25.0-35.0) pg RDW (11.5-15.5) % POC Glucose (mg/dL) 124 H 193 H (70-110) mg/dL Iron 14 L (50-170) UG/DL % Saturation 4.29 L (12.00-45.00) 05/24/24 05/25/24 Range/Units 19:58 06:00 RBC 3.72 L (3.80-5.40) m/uL Hgb 9.3 L (11.4-16.0) gm/dL Hct 29.5 L (34.0-46.0) % MCV 79.2 L (80.0-100.0) fL MCH 24.9 L (25.0-35.0) pg RDW 17.4 H (11.5-15.5) % POC Glucose (mg/dL) 284 H (70-110) mg/dL Iron (50-170) UG/DL % Saturation (12.00-45.00) Microbiology - Last 24 Hours (Table) 05/22/24 10:00 Blood Culture - Preliminary Blood Assessment and Plan Assessment: 1. Chronic kidney disease stage IV secondary to cardiorenal syndrome. Baseline creatinine 2.0-2.5. GFR at baseline. UA from January 2024 was benign. Kidney ultrasound from January 2024 showed atrophic right kidney without any hydronephrosis. 2. Acute on chronic systolic CHF with ejection fraction of 20 to 25%. 3. Volume overload. Better. 4. Diabetes mellitus. 5. Anemia of chronic kidney disease. 6. Hypertension with chronic kidney disease. Controlled. Plan: Maintain current regimen of Bumex Farxiga 5 mg once daily. Maintain low-salt diet. Clear for discharge from nephrology standpoint
[2024-05-25 11:28] LABS: Glucose,Whole Blood 146 mg/dL (70-110)
--- NOTE | 2024-05-25 15:48 | P.PN ---
Subjective This is a 54-year-old female with past medical history significant for diabetes mellitus type 2 with diabetic neuropathy and retinopathy-legally blind, morbid obesity, chronic CHFcardiomyopathy with EF of 20-25%, hypertension, hyperlipidemia, COPD, ongoing nicotine dependence, presented to the ER with complaints of progressive shortness of breath over the last couple days, worsened with exertion, accompanied by cough. Denies nausea, vomiting or abdominal pain. Denies chest pain, palpitations. Troponin 0.072, 0.053 .EKG reported sinus rhythm.chest x-ray suggested patchy basilar densities greater at the left lower lobe with small effusions; repeat chest x-ray reported small effusions with interstitial prominence nonspecific. Empiric antibiotics initiated for potential pneumonia with procalcitonin ordered. IV Lasix initiated in the ER with significant clinical improvement. Vital signs stable, maintaining O2 sats of 95% on room air. Breathing easier this morning. Afebrile, Tmax 100.9, normal WBC. Hemoglobin 9.7, platelets 284, sodium 139, potassium 3.7, bicarb 23,, BUN 27, creatinine 2.28. proBNP 18,400. Echo of 02/04/2024 reported EF of 20 to 25%, mid to distal anterior anterior septal wall and apical wall hypokinesia, RVSP 35 mmHg, no significant valve dysfunction. 05/24 Patient breathing is better She still has bilateral leg edema but no significant dyspnea Patient had fever on admission of 100.9 on 05/22, no fever yesterday or this morning. Patient denies urinary symptoms. No diarrhea or vomiting. No rash. No other obvious source of infection She is hemodynamically stable Creatinine went up today 2.2 up to 2.4, baseline 2.1-2.5, nephrology team on the case. Hemoglobin 9.1 Pro- Calcitonin is negative at 0.23 Troponin is mildly elevated as well as proBNP 68171 hemoglobin A1c is elevated 8.4, patient informed she needs better Blood glucose control and she agrees Blood cultures ordered and is pending we will repeat pro- Calcitonin tomorrow as well as CRP Currently patient monitored off antibiotic with no further fever. Also check repeat WBC tomorrow, on admission was within the reference range 05/25 Patient is little tired today No chest pain or dyspnea Blood culture still pending Hemoglobin slightly low at 9.3, patient has evidence of iron deficiency anemia Creatinine 2.4 at nephrology team on the case We will continue monitoring hemoglobin, patient is on aspirin at home. Patient will benefit from surgical team evaluation while in the hospital, as she is blind and she has difficulty for follow-up. Review of systems CONSTITUTIONAL: No fever, no malaise, no fatigue. HEENT: No recent visual problems or hearing problems. Denied any sore throat. HEMATOLOGICAL: Denies any bleeding or petechiae. GENITOURINARY: Denies any burning micturition, frequency, or urgency. MUSCULOSKELETAL/RHEUMATOLOGICAL: Denies any joint pain, swelling, or any muscle pain. ENDOCRINE: Denies any polyuria or polydipsia. Active Medications Generic Name Dose Route Start Last Admin Trade Name Freq PRN Reason Stop Dose Admin Aspirin 81 mg 05/23/24 09:00 05/23/24 08:23 Aspirin 81 Mg PO 81 mg DAILY [facility] Administration Atorvastatin Calcium 40 mg 05/23/24 09:00 05/23/24 08:23 Atorvastatin 40 Mg Tab PO 40 mg DAILY [facility] Administration Bumetanide 1 mg 05/23/24 16:00 05/23/24 15:14 Bumetanide 1 Mg Tab PO 1 mg BID@0900,1600 [facility] Administration Dapagliflozin 5 mg 05/23/24 11:15 05/23/24 11:52 Dapagliflozin Propanediol 5 Mg Tablet PO 5 mg DAILY [facility] Administration Furosemide 80 mg 05/24/24 09:00 Furosemide 80 Mg Tab PO DAILY [facility] Glimepiride 4 mg 05/23/24 07:30 05/24/24 06:56 Glimepiride 4 Mg Tab PO 4 mg AC-BRKFST [facility] Administration Insulin Aspart 0 unit 05/23/24 07:30 05/24/24 06:54 Insulin Aspart (Novolog) 100 Unit/Ml Vial SQ Not Given ACHS [facility] Protocol Losartan Potassium 25 mg 05/23/24 21:00 05/23/24 21:05 Losartan 25 Mg Tab PO Not Given HS [facility] Metoprolol Succinate 25 mg 05/23/24 09:00 05/23/24 08:24 Metoprolol Succinate (Er) 25 Mg Tab.Er.24h PO 25 mg DAILY [facility] Administration Quetiapine Fumarate 50 mg 05/22/24 21:00 05/23/24 21:05 Quetiapine 50 Mg Tab PO Not Given HS [facility] Objective - Vital Signs Vital signs: Vital Signs Temp 97.9 F 05/25/24 08:15 Pulse 72 05/25/24 08:15 Resp 17 05/25/24 08:15 BP 113/73 05/25/24 08:15 Pulse Ox 95 05/25/24 08:15 FiO2 Intake & Output 05/24/24 05/25/24 05/25/24 18:59 06:59 18:59 Intake Total 354 450 240 Output Total 0730 232 6364 Balance -846 250 -760 Weight 128.1 kg Intake: Oral 354 450 240 Output: Urine 5972 202 9341 Other: Voiding Method Toilet Toilet Toilet - Exam GENERAL: The patient is alert and oriented x3, not in any acute distress. Well developed, well nourished. HEENT: Pupils are round and equally reacting to light. EOMI. No scleral icterus. No conjunctival pallor. Normocephalic, atraumatic. No pharyngeal erythema. No thyromegaly. CARDIOVASCULAR: S1 and S2 present. No murmurs, rubs, or gallops. PULMONARY: Chest is clear to auscultation, no wheezing , no crackles. ABDOMEN: Soft, nontender, nondistended, normoactive bowel sounds. No palpable organomegaly. MUSCULOSKELETAL: No joint swelling or deformity. EXTREMITIES: No cyanosis, clubbing, or pedal edema. NEUROLOGICAL: Gross neurological examination did not reveal any focal deficits. SKIN: No rashes. no petechiae. - Labs CBC & Chem 7: 05/25/24 06:00 05/24/24 06:14 Labs: Abnormal Lab Results - Last 24 Hours (Table) 05/23/24 05/24/24 05/24/24 Range/Units 06:30 11:40 16:53 RBC (3.80-5.40) m/uL Hgb (11.4-16.0) gm/dL Hct (34.0-46.0) % MCV (80.0-100.0) fL MCH (25.0-35.0) pg RDW (11.5-15.5) % POC Glucose (mg/dL) 124 H 193 H (70-110) mg/dL Iron 14 L (50-170) UG/DL % Saturation 4.29 L (12.00-45.00) 10/12/24 10/13/24 Range/Units 19:58 06:00 RBC 3.72 L (3.80-5.40) m/uL Hgb 9.3 L (11.4-16.0) gm/dL Hct 29.5 L (34.0-46.0) % MCV 79.2 L (80.0-100.0) fL MCH 24.9 L (25.0-35.0) pg RDW 17.4 H (11.5-15.5) % POC Glucose (mg/dL) 284 H (70-110) mg/dL Iron (50-170) UG/DL % Saturation (12.00-45.00) Microbiology - Last 24 Hours (Table) 05/22/24 10:00 Blood Culture - Preliminary Blood Assessment and Plan Assessment: Acute on chronic CHF with low ejection fraction 20 to 25% Iron deficiency anemia, rule out GI bleed Elevated troponins thought secondary to ischemic cardiomyopathy Chronic kidney disease stage IV Mild period of fever on admission, could be viral. No evidence of bacterial infection so far Diabetes mellitus with hyperglycemia Plan: Surgery team consult for anemia Continue with diuretics, currently on Bumex, cardiology team cleared the patient for discharge Nephrology team cleared patient for discharge planning staff Patient had a fever on admission, no more fever, keep monitoring off antibiotic. Check procalcitonin and plan to follow-up blood culture Labs and medication were reviewed.. Continue same treatment. Continue with symptomatic treatment. Resume home medication. Monitor labs and vitals. DVT and GI prophylaxis. Further recommendations as per clinical course of the patient DVT prophylaxis: Subcutaneous heparin GI Prophylaxis: Pepcid Prognosis is guarded
--- NOTE | 2024-05-25 16:12 | P.GSCN ---
History of Present Illness Consult date: 05/25/24 History of present illness: Patient has anemia. Last colonoscopy 9 to 10 years ago upon review of chart. Patient has CHF, severe cardiomyopathy including impaired renal function. Plan for EGD. Colonoscopy pending recommendations from nephrology/cardiology Past Medical History Past Medical History: COPD, Diabetes Mellitus, Eye Disorder, Hyperlipidemia, Hypertension Additional Past Medical History / Comment(s): IDDM type II, blindness d/t diabetes with R eye having only 2% vision, current sore on bottom R foot, bilateral neuropathy hands/feet. History of Any Multi-Drug Resistant Organisms: None Reported Past Surgical History: Adenoidectomy, Cholecystectomy, Hernia Repair, Tonsillectomy Additional Past Surgical History / Comment(s): BENIGN TUMOR & LT OVARY REMOVED, COLONOSCOPY. Past Anesthesia/Blood Transfusion Reactions: No Reported Reaction Past Psychological History: No Psychological Hx Reported Additional Psychological History / Comment(s): She is blind. Pt has a talking glucometer, talking scanner and talking cell phone. She manages her own medications, keeping bottles always in same order and can recognize pills by shape. Smoking Status: Former smoker Past Alcohol Use History: None Reported Additional Past Alcohol Use History / Comment(s): STARTED SMOKING AT 13 OR 14- 1/2 PACK PER DAY Past Drug Use History: Marijuana Additional Drug Use History / Comment(s): Stopped smoing or using marijuana this year - Past Family History Father Family Medical History: Diabetes Mellitus Mother Family Medical History: Asthma, Pneumonia Additional Family Medical History / Comment(s): "BREATHING PROBLEMS" Medications and Allergies Home Medications Medication Instructions Recorded Confirmed Type Glimepiride [Amaryl] 4 mg PO DAILY 02/04/24 05/22/24 History QUEtiapine [SEROquel] 50 mg PO HS 02/04/24 05/22/24 History Aspirin 81 mg PO DAILY tab 02/08/24 05/22/24 Rx Atorvastatin [Lipitor] 40 mg PO DAILY #30 tab 02/08/24 05/22/24 Rx Bumetanide [BUMEX] 1 mg PO BID@0900,1600 #60 tab 02/08/24 05/22/24 Rx Insulin Aspart [NovoLOG Flexpen] See Protocol SQ PC-TID PRN 05/22/24 05/22/24 History Metoprolol Succinate (ER) [Toprol 25 mg PO DAILY 05/22/24 05/22/24 History Xl] Allergies Allergy/AdvReac Type Severity Reaction Status Date / Time No Known Allergies Allergy Verified 05/22/24 10:35 Surgical - Exam Vital Signs Temp Pulse Resp BP Pulse Ox 98.1 F 105 H 28 H 128/71 95 05/22/24 07:56 05/22/24 07:56 05/22/24 07:56 05/22/24 07:56 05/22/24 07:56 Results - Labs 05/25/24 06:00 05/24/24 06:14 Abnormal Lab Results - Last 24 Hours (Table) 05/23/24 05/24/24 05/24/24 Range/Units 06:30 16:53 19:58 RBC (3.80-5.40) m/uL Hgb (11.4-16.0) gm/dL Hct (34.0-46.0) % MCV (80.0-100.0) fL MCH (25.0-35.0) pg RDW (11.5-15.5) % POC Glucose (mg/dL) 193 H 284 H (70-110) mg/dL Iron 14 L (50-170) UG/DL % Saturation 4.29 L (12.00-45.00) 05/25/24 05/25/24 Range/Units 06:00 11:27 RBC 3.72 L (3.80-5.40) m/uL Hgb 9.3 L (11.4-16.0) gm/dL Hct 29.5 L (34.0-46.0) % MCV 79.2 L (80.0-100.0) fL MCH 24.9 L (25.0-35.0) pg RDW 17.4 H (11.5-15.5) % POC Glucose (mg/dL) 146 H (70-110) mg/dL Iron (50-170) UG/DL % Saturation (12.00-45.00) Microbiology - Last 24 Hours (Table) 05/22/24 10:00 Blood Culture - Preliminary Blood
[2024-05-25 16:43] LABS: Glucose,Whole Blood 216 mg/dL (70-110)
[2024-05-25 19:53] LABS: Glucose,Whole Blood 271 mg/dL (70-110)
[2024-05-26 06:27] LABS: Anisocytosis Slight; Basophils % (A) 0 %; Eosinophils # (A) 0.2 k/uL (0-0.7); Eosinophils % (A) 4 %; HCT 31.1 % (34.0-46.0); HGB 9.5 gm/dL (11.4-16.0); Hypochromasia Marked; Lymphocytes # (A) 1.3 k/uL (1.0-4.8); Lymphocytes % (A) 21 %; MCH 24.4 pg (25.0-35.0); MCHC 30.4 g/dL (31.0-37.0); MCV 80.2 fL (80.0-100.0); Mean Platelet Volume 7.4; Microcytosis Slight; Monocytes # (A) 0.4 k/uL (0-1.0); Monocytes % (A) 6 %; Neutrophils % (A) 67 %; Platelet Count 295 k/uL (150-450); RBC 3.88 m/uL (3.80-5.40)
[2024-05-26 06:38] LABS: Glucose,Whole Blood 87 mg/dL (70-110)
[2024-05-26 08:26] VITALS: TEMP 98.4
[2024-05-26 08:40] LABS: Glucose,Whole Blood 83 mg/dL (70-110)
[2024-05-26] MEDS ORDERED: ETOMIDATE 2 MG/ML 10 ML VIAL ONE (09:03)
[2024-05-26] MEDS ORDERED: LIDOCAINE 1% INJ 10MG/ML (20 ML MDV) ONE (09:03)
[2024-05-26] MEDS: SODIUM CHLORIDE 0.9% 500 ML 500 ML IV ONE (09:04)
--- NOTE | 2024-05-26 09:30 | P.PCN ---
Date of Procedure: 05/26/24 Description of Procedure: PREOPERATIVE DIAGNOSIS: Chronic anemia Diabetes type 2 with complications Congestive heart failure Chronic renal insufficiency, stage III due to diabetes POSTOPERATIVE DIAGNOSIS: Diaphragmatic hiatal hernia Gastroesophageal reflux disease with erosive esophagitis Gastritis OPERATION: Esophagogastroduodenoscopy with cold forcep biopsy duodenum, esophagus, antrum SURGEON: Vonnie Quevedo MD ANESTHESIA: MAC. INDICATIONS: The patient is a 54-year-old female who presents with anemia. Benefits and risks of the procedure were described. Informed consent was obtained. DESCRIPTION: The patient was brought into the endoscopy suite and laid in the left lateral decubitus position. An Olympus gastroscope was passed along the posterior oropharynx down to the distal esophagus where the squamocolumnar junction was encountered at 40 cm from the incisors. The stomach was entered and bile reflux was found. Additional findings are listed below. Moderate secretions along the posterior oropharynx was suctioned. The first through third portion of the duodenum was examined and cold forcep biopsies was obtained. Retroflexion of the scope confirmed Hill grade 3 lower esophageal valve. The squamocolumnar junction demonstrated LA grade B erosive esophagitis. The stomach was desufflated. The patient tolerated the procedure well. FINDINGS: Squamocolumnar junction 40 cm from the incisors. Diaphragmatic hiatus at 45 cm. Hiatal hernia, 5 cm, sliding-type Hill grade 3 lower esophageal valve. LA grade B erosive esophagitis. Biopsies obtained Biopsies obtained with cold forceps duodenum Biopsies obtained of the antrum No stigmata of bleeding RECOMMENDATIONS: 1. Start Protonix 40 mg daily 2. Sliding diaphragmatic hiatal hernia may also contribute to chronic anemia and recommend additional diagnostic assessment 3. Recommend colonoscopy once cleared by nephrology
[2024-05-26 10:57] LABS: African American GFR (CKD) 22 (>60 ml/min/1.73 sqM); Anion Gap 3 mmol/L; Blood Urea Nitrogen 40 mg/dL (7-17); Calcium 9.1 mg/dL (8.4-10.2); Carbon Dioxide 31 mmol/L (22-30); Chloride 108 mmol/L (98-107); Glucose 71 mg/dL (74-99); Non-African American GFR(CKD) 19 (>60 ml/min/1.73 sqM); Potassium 3.6 mmol/L (3.5-5.1); Sodium 142 mmol/L (137-145)
[2024-05-26 11:30] LABS: Glucose,Whole Blood 184 mg/dL (70-110)
--- NOTE | 2024-05-26 11:58 | P.DS ---
Providers Date of admission: 05/22/24 10:12 Expected date of discharge: 05/26/24 Attending physician: Inocente Corea MD Consults: 05/23/24 10:09 Consult Physician Routine Consulting Provider: Leobardo Duran Consult Reason/Comments: MYRA Do you want consulting provider notified?: Yes 05/25/24 09:34 Consult Physician Routine Consulting Provider: Vonnie Quevedo Consult Reason/Comments: anemia , r/o gi bleed Do you want consulting provider notified?: Yes Primary care physician: Inocente Corea MD Hospital Course: Final Diagnoses: Acute on chronic CHF exacerbation, systolic dysfunction Possible community-acquired pneumonia, procalcitonin pending Cardiomyopathy, EF 20-25%, ischemic type suspected as per cardiology Progressive dyspnea on exertion with orthopnea secondary to the above Chronic kidney disease IV, secondary to cardiorenal syndrome ,baseline creatinine 2-2.5, Anemia of chronic kidney disease Diabetes mellitus type 2, hemoglobin A1c, hemoglobin A1c pending Diabetic retinopathy, legally blind Diabetic neuropathy Nicotine dependence Hypertension Hyperlipidemia Strong family history of vascular disease, CAD, SD, CVAs Morbid obesity, BMI 42 Hospital course:This is a 54-year-old female with past medical history significant for diabetes mellitus type 2 with diabetic neuropathy and retinopathy-legally blind, morbid obesity, chronic CHFcardiomyopathy with EF of 20-25%, hypertension, hyperlipidemia, COPD, ongoing nicotine dependence, presented to the ER with complaints of progressive shortness of breath over the last couple days, worsened with exertion, accompanied by cough. Denies nausea, vomiting or abdominal pain. Denies chest pain, palpitations. Troponin 0.072, 0.053 .EKG reported sinus rhythm.chest x-ray suggested patchy basilar densities greater at the left lower lobe with small effusions; repeat chest x-ray reported small effusions with interstitial prominence nonspecific. Empiric antibiotics initiated for potential pneumonia with procalcitonin ordered. IV Lasix initiated in the ER with significant clinical improvement. Vital signs stable, maintaining O2 sats of 95% on room air. Breathing easier this morning. Afebrile, Tmax 100.9, normal WBC. Hemoglobin 9.7, platelets 284, sodium 139, potassium 3.7, bicarb 23,, BUN 27, creatinine 2.28. proBNP 18,400. Echo of 02/04/2024 reported EF of 20 to 25%, mid to distal anterior anterior septal wall and apical wall hypokinesia, RVSP 35 mmHg, no significant valve dysfunction. Patient has been cleared by both cardiology and nephrology. Cardiology recommending further outpatient ischemic evaluation, primary prevention ICD. Patient will be discharged home today in a stable condition with guarded prognosis after completing her EGD. Denies nausea vomiting or diarrhea. Denies any bleeding or dark tarry stools. Denies any hematemesis. Denies any abdominal tenderness. Denies any chest pain, palpitations or shortness of breath. Maintaining O2 sats in the high 90s on room air. The impression and plan of care has been dictated as directed. : I performed a history and examination of this patient, discussed the same with the dictator. I agree with the dictator's note ,documented as a scribe. Any additional findings or plans will be noted. Patient Condition at Discharge: Stable Plan - Discharge Summary Discharge Rx Participant: No New Discharge Prescriptions: New Omeprazole [PriLOSEC] 40 mg PO DAILY #14 cap Dapagliflozin Propanediol [Farxiga] 5 mg PO DAILY #30 tab Isosorbide Mononitrate ER [Imdur] 30 mg PO DAILY #30 tab Ferrous Sulfate [Feosol] 325 mg PO DAILY #30 tab Sennosides-Docusate Sodium [Senokot-S] 2 tab PO BID #60 tablet Continue Aspirin 81 mg PO DAILY tab Bumetanide [BUMEX] 1 mg PO BID@0900,1600 #60 tab Atorvastatin [Lipitor] 40 mg PO DAILY #30 tab Insulin Aspart [NovoLOG Flexpen] See Protocol SQ PC-TID PRN PRN Reason: Blood Sugar - High QUEtiapine [SEROquel] 50 mg PO HS Glimepiride [Amaryl] 4 mg PO DAILY Metoprolol Succinate (ER) [Toprol XL] 25 mg PO DAILY Discharge Medication List Glimepiride [Amaryl] 4 mg PO DAILY 02/04/24 [History] QUEtiapine [SEROquel] 50 mg PO HS 02/04/24 [History] Aspirin 81 mg PO DAILY tab 02/08/24 [Rx] Atorvastatin [Lipitor] 40 mg PO DAILY #30 tab 02/08/24 [Rx] Bumetanide [BUMEX] 1 mg PO BID@0900,1600 #60 tab 02/08/24 [Rx] Insulin Aspart [NovoLOG Flexpen] See Protocol SQ PC-TID PRN 05/22/24 [History] Metoprolol Succinate (ER) [Toprol XL] 25 mg PO DAILY 05/22/24 [History] Dapagliflozin Propanediol [Farxiga] 5 mg PO DAILY #30 tab 05/26/24 [Rx] Ferrous Sulfate [Feosol] 325 mg PO DAILY #30 tab 05/26/24 [Rx] Isosorbide Mononitrate ER [Imdur] 30 mg PO DAILY #30 tab 05/26/24 [Rx] Omeprazole [PriLOSEC] 40 mg PO DAILY #14 cap 05/26/24 [Rx] Sennosides-Docusate Sodium [Senokot-S] 2 tab PO BID #60 tablet 05/26/24 [Rx] Follow up Appointment(s)/Referral(s): Michele Lewis DO [STAFF PHYSICIAN] - 1 Week Leobardo Duran DO [STAFF PHYSICIAN] - 1 Week Inocente Corea MD [Primary Care Provider] - 3 Weeks Activity/Diet/Wound Care/Special Instructions: Please do not schedule patient with Dr. Tatum; patient is requesting to see a different spa director/finance at their office other than him. Low-salt diet Discharge Disposition: HOME SELF-CARE
--- NOTE | 2024-05-26 13:54 | P.PN ---
Subjective patient is seen for follow-up for chronic kidney disease. No significant complaints today. Serum creatinine at 2.7 today. Baseline creatinine at 2.0-2.3 mg/dL. Maintained on Bumex 1 mg twice a day. 24 hour urine output at 1800 ML Objective - Vital Signs Vital signs: Vital Signs Temp 98.4 F 05/26/24 08:15 Pulse 77 05/26/24 08:15 Resp 17 05/26/24 08:15 BP 142/76 05/26/24 08:15 Pulse Ox 96 05/26/24 08:15 FiO2 Intake & Output 05/25/24 05/26/24 05/26/24 18:59 06:59 18:59 Intake Total 808 0 150 Output Total 1800 Balance -992 0 150 Weight 125.9 kg Intake: IV 150 Oral 808 0 Output: Urine 1800 Other: Voiding Method Toilet Toilet Toilet - Exam patient is awake, comfortable, no acute distress. Examination of the heart S1 and S2 Examination lungs decreased breath sounds at the bases Abdomen is soft nontender Examination lower extremity shows trace edema - Labs CBC & Chem 7: 05/26/24 05:36 05/26/24 05:36 Labs: Abnormal Lab Results - Last 24 Hours (Table) 05/25/24 05/25/24 05/26/24 Range/Units 16:42 19:52 05:36 Hgb 9.5 L (11.4-16.0) gm/dL Hct 31.1 L (34.0-46.0) % MCH 24.4 L (25.0-35.0) pg MCHC 30.4 L (31.0-37.0) g/dL RDW 17.0 H (11.5-15.5) % Chloride (98-107) mmol/L Carbon Dioxide (22-30) mmol/L BUN (7-17) mg/dL Creatinine (0.52-1.04) mg/dL Glucose (74-99) mg/dL POC Glucose (mg/dL) 216 H 271 H (70-110) mg/dL 05/26/24 05/26/24 Range/Units 05:36 11:28 Hgb (11.4-16.0) gm/dL Hct (34.0-46.0) % MCH (25.0-35.0) pg MCHC (31.0-37.0) g/dL RDW (11.5-15.5) % Chloride 108 H (98-107) mmol/L Carbon Dioxide 31 H (22-30) mmol/L BUN 40 H (7-17) mg/dL Creatinine 2.73 H (0.52-1.04) mg/dL Glucose 71 L (74-99) mg/dL POC Glucose (mg/dL) 184 H (70-110) mg/dL Microbiology - Last 24 Hours (Table) 05/22/24 10:00 Blood Culture - Preliminary Blood Assessment and Plan Assessment: 1. Chronic kidney disease stage IV secondary to cardiorenal syndrome. Baseline creatinine 2.0-2.5. GFR at baseline. UA from January 2024 was benign. Kidney ultrasound from January 2024 showed atrophic right kidney without any hydronephrosis. 2. Acute on chronic systolic CHF with ejection fraction of 20 to 25%. 3. Volume overload. Better. 4. Diabetes mellitus. 5. Anemia of chronic kidney disease. 6. Hypertension with chronic kidney disease. Controlled. Plan: continue current dose of Bumex along with Farxiga. Patient is stable for discharge from nephrology standpoint. Maintain salt and fluid restriction Follow-up as outpatient in 1-2 weeks.
[2024-05-26 13:57] VITALS: BP 129/78; PULSE 69
== END 2024-05-26 13:57 | disposition home or self-care (01) | DRG 291 ==
LOC: EC 07:55 → 3SCARD 10:12
PROVIDERS: ADMIT Family Medicine; ATTEND Family Medicine
PROC: 0DB48ZX Excision of Esophagogastric Junction, Via Natural or Artificial Opening Endoscopic, Diagnostic (ICD-10-PCS; 2024-05-26)
PROC: 0DB98ZX Excision of Duodenum, Via Natural or Artificial Opening Endoscopic, Diagnostic (ICD-10-PCS; principal; 2024-05-26 08:35)
DX: I13.0 Hypertensive heart and chronic kidney disease with heart failure and stage 1 through stage 4 chronic kidney disease, or unspecified chronic kidney disease (principal); I50.23 Acute on chronic systolic (congestive) heart failure; J18.9 Pneumonia, unspecified organism; J44.0 Chronic obstructive pulmonary disease with (acute) lower respiratory infection; N18.4 Chronic kidney disease, stage 4 (severe); Z68.41 Body mass index [BMI] 40.0-44.9, adult; K22.10 Ulcer of esophagus without bleeding; N17.9 Acute kidney failure, unspecified; D63.1 Anemia in chronic kidney disease; E11.22 Type 2 diabetes mellitus with diabetic chronic kidney disease; E66.01 Morbid (severe) obesity due to excess calories; E11.319 Type 2 diabetes mellitus with unspecified diabetic retinopathy without macular edema; E11.42 Type 2 diabetes mellitus with diabetic polyneuropathy; E11.65 Type 2 diabetes mellitus with hyperglycemia; E11.39 Type 2 diabetes mellitus with other diabetic ophthalmic complication; I25.5 Ischemic cardiomyopathy; E78.5 Hyperlipidemia, unspecified; H54.8 Legal blindness, as defined in USA; F17.210 Nicotine dependence, cigarettes, uncomplicated; K21.00 Gastro-esophageal reflux disease with esophagitis, without bleeding; K29.70 Gastritis, unspecified, without bleeding; K44.9 Diaphragmatic hernia without obstruction or gangrene; Z79.84 Long term (current) use of oral hypoglycemic drugs; Z79.82 Long term (current) use of aspirin; Z79.4 Long term (current) use of insulin; Z79.899 Other long term (current) drug therapy; Z90.721 Acquired absence of ovaries, unilateral; Z82.49 Family history of ischemic heart disease and other diseases of the circulatory system
CPT/HCPCS: 36415; 43239; 71045; 71046; 80048; 80053; 82728; 83036; 83540; 83550; 83735; 83880; 84145; 84484; 85025; 87040; 87449; 87636; 88305; 93005; 94640; 94760; 96365; 96375; 99285

== ENCOUNTER → 2024-07-17 | Outpatient (CLI) | payer MEDICARE, OTHER ==
[2024-07-17 16:03] LABS: HCT 37.1 % (37.2-46.3); MCHC 29.6 g/dL (32.0-37.0); Mean Platelet Volume 10.2 FL (9.5-12.2); NRBC Per 100 WBC 0 X 10*3/uL (0.00-0.01); Platelet Count 322 X 10*3/uL (140-440); RBC 4.58 X 10*6/uL (4.10-5.20); RDW 19.1 % (11.5-14.5); WBC 8.09 X 10*3/uL (4.50-10.00)
[2024-07-17 16:10] LABS: Blood Urea Nitrogen 21.1 mg/dL (9.0-27.0); Carbon Dioxide 27.3 mmol/L (21.6-31.8); Chloride 102 mmol/L (96-109); Potassium 3.8 mmol/L (3.5-5.5); Sodium 144 mmol/L (135-145)
== END | disposition home or self-care (01) ==
LOC: LABPAT 11:23
PROVIDERS: ATTEND Internal Medicine
DX: Z01.818 Encounter for other preprocedural examination (principal); I50.22 Chronic systolic (congestive) heart failure
CPT/HCPCS: 80051; 82565; 84520; 85027

== ENCOUNTER → 2024-07-23 | Day surgery (SDC) | payer MEDICARE, OTHER ==
[~2024-07-23] MED LIST changes: +ALPRAZolam 0.25 MG TAB PO PRN; +ALPRAZolam 0.5 MG TAB PO PRN; +NITROGLYCERIN SL TABS 0.4 MG TAB SUBLINGUAL PRN; -VANCOMYCIN 2,000 MG in SODIUM CHLORIDE 0.9% 500 ML 500 ML IVPB SCH
[2024-07-23] MEDS: IV FLUID CONTINUATION 1,000 ML IV ONE (06:40)
[2024-07-23] MEDS: SODIUM CHLORIDE 0.9% 1,000 ML in EMPTY BAG 1 BAG IV SCH (06:40)
[2024-07-23 07:01] LABS: Glucose,Whole Blood 168 mg/dL (70-110)
[2024-07-23] MEDS: ATORVASTATIN 80 MG TAB PO STA (07:04)
[2024-07-23] MEDS: ASPIRIN 325 MG TAB PO STA (07:04)
[2024-07-23 07:22] VITALS: RESP 16; TEMP 98.5
[2024-07-23] MEDS: MIDAZOLAM 2 MG/2 ML VIAL IVP ONE (07:38)
[2024-07-23] MEDS: LIDOCAINE 1% INJ 10MG/ML (20 ML MDV) SQ ONE (07:38)
[2024-07-23] MEDS: fentaNYL (PF) 50 MCG/1 ML VIAL IVP ONE (07:38)
[2024-07-23] MEDS: HEPARIN SODIUM,PORCINE (1 ML) 2,500 UNIT in SODIUM CHLORIDE 0.9% 250 ML IRRIGATION PRN (07:41)
[2024-07-23] MEDS: HEPARIN SODIUM,PORCINE 10,000 UNIT in SODIUM CHLORIDE 0.9% 1,000 ML IRRIGATION PRN (07:41)
[2024-07-23] MEDS: VERAPAMIL SYRINGE (5 MG/10 ML) INTRAARTER ONE (07:49)
[2024-07-23] MEDS: HEPARIN SODIUM 1,000 UN/ML (10ML VL) IV ONE (08:14)
[2024-07-23 08:24] LABS: O2 Sat Blood Gas 53.8 %
[2024-07-23 08:26] LABS: O2 Sat Blood Gas 53.5 %
[2024-07-23 08:28] LABS: O2 Sat Blood Gas 86.7 %
[2024-07-23] MEDS: IOPAMIDOL-370 100ML BTL INJ ONE (08:33)
--- NOTE | 2024-07-23 09:08 | P.CARDCATH ---
Description of Procedure: PROCEDURES PERFORMED: Left and right heart catheterization, bilateral coronary angiography, ultrasound guided arterial access, RFR (iFR) RCA INDICATION: Cardiomyopathy CONSENT:I have discussed the risks, benefits and alternative therapies for the above-mentioned procedure and for both sedation/analgesia as well as necessary blood product administration, if indicated, as they pertain to this patient. The patient has indicated understanding and acceptance of the risks and procedures discussed. PROCEDURE: After the risks, benefits and alternatives of the above mentioned procedure explained in detail with the patient, informed consent was obtained. Patient was taken to the catheterization lab and prepped and draped in usual fashion. Ultrasound guidance was used to assess for arterial access. 1% lidocaine was used to anesthetize the right radial artery. A 6-[place] sheath was placed in the right radial artery and right brachial vein using modified Seldinger technique and ultrasound guidance. a 5-[place] Sidney-Kizzy catheter was inserted into the right atrium, right ventricle, pulmonary artery and pulmonary Wedge position. Thermal dilution was performed. Initially the wire had been pulled back and difficulty advancing the catheter back and of the pulmonary artery and therefore oxygen saturations were obtained in the right ventricle. Left coronary angiography was performed with a 5-[place] JL 3.5 catheter and right coronary angiography was performed with a 5-[place] AR2 catheter in various views. A 5-[place] FR5 catheter was inserted into the left ventricle and pressure measurements were obtained. The decision was made to perform functional assessment of the RCA. Heparin was given. Using the AR2, a 0.014 pressure wire was advanced into the proximal RCA and normalized. It was then advanced into the distal RCA. RFR was abnormal at 0.80. The majority of the discrepancy was at the mid to distal lesion as opposed to the distal lesion. The right radial sheath was removed and a TR band was placed with hemostasis achieved. The brachial sheath was removed and pressure held with hemostasis achieved. The patient tolerated the procedure well. Patient was transported back to the post catheterization holding area in stable condition. Conscious Sedation: Patient was monitored under the direct supervision of myself for conscious sedation using Versed and fentanyl for a total duration of 54 minutes HEMODYNAMICS: aorta: 133/76 LV: 134/26, LVDP 42 PCWP: 34 PA: 64/28 RV: 60/3, RVEDP 7 RA: 7 Rght atrial oxygen saturation: 54% RV oxygen saturation: 54% Cardiac output I Marquis: 6.5 L/m Cardiac index by Marquis: 2.8 L/m/m Cardiac output by thermodilution: 7.2 L/m Cardiac index by thermodilution: 3.2 L/m/m SELECTIVE CORONARY ARTERIOGRAPHY: LEFT MAIN: The left main is a large caliber vessel which bifurcates into the LAD and circumflex. There is no significant stenosis. LEFT ANTERIOR DESCENDING CORONARY ARTERY: LAD is a large caliber vessel which wraps around to the apex. There is mild proximal LAD 20% stenosis. Diagonal 1 is small caliber and has diffuse disease with proximal 70% stenosis. Diagonal 2 was also small caliber and has proximal 70-80% stenosis. After the diagonal 2 branch there is a subtotal occlusion/ 99% and the LAD becomes very atretic appearing to be a 1.5 mm vessel. LEFT CIRCUMFLEX CORONARY ARTERY: Left circumflex is a moderate caliber vessel with proximal circumflex 30-40% stenosis. the circumflex gives off a moderate caliber OM 1 branch and then becomes small caliber A-V groove giving off 1 other small caliber OM 2 which is subtotally occluded. The superior branch of OM1 has a distal 100% stenosis. RIGHT CORONARY ARTERY: The right coronary artery is a large caliber vessel which gives off a PDA and PLV branch and is the dominant vessel. There is mild proximal 30-40% stenosis, a mid to distal 60-70% stenosis followed by distal RCA 60% stenosis. The majority of the pressure gradient was across the head to distal 60-70% stenosis. FINAL IMPRESSION: 1. Multivessel CAD as described above including subtotal occlusion mid LAD, 100% OM1, 60-70% RCA stenosis 2. Significantly elevated left sided filling pressures, normal right sided filling pressures 3. Normal cardiac output/ cardiac index 4. RFR/ iFR RCA abnormal PLAN: 1. Aggressive risk factor modification per most recent ACC/AHA guidelines. 2. Consider staged PCI of RCA. Would consider viability study if considering PCI of LAD given appears atretic and may be nonviable. 3. Increase afterload reduction with addition of Hydralazine and increase diuresis
[2024-07-23 17:22] VITALS: BP 120/65; PULSE 76
== END ==
LOC: CATHCVL 05:37
PROVIDERS: ATTEND Internal Medicine
DX: I25.10 Atherosclerotic heart disease of native coronary artery without angina pectoris (principal); I42.9 Cardiomyopathy, unspecified; I11.0 Hypertensive heart disease with heart failure; I50.20 Unspecified systolic (congestive) heart failure; N18.9 Chronic kidney disease, unspecified; E11.9 Type 2 diabetes mellitus without complications; F17.210 Nicotine dependence, cigarettes, uncomplicated; E78.2 Mixed hyperlipidemia; E66.9 Obesity, unspecified; Z68.42 Body mass index [BMI] 45.0-49.9, adult; Z79.02 Long term (current) use of antithrombotics/antiplatelets; Z79.899 Other long term (current) drug therapy
CPT/HCPCS: 93460; 93799; 85018; 82810; 99152; 99153; J2250; J1644 ×3; J2003; Q9967; J3010

== ENCOUNTER → 2024-09-03 | Day surgery (SDC) | payer MEDICARE, OTHER ==
[~2024-09-03] MED LIST changes: +ASPIRIN 325 MG TAB PO STA; +ASPIRIN 81 MG PO SCH; +ATORVASTATIN 40 MG TAB PO SCH; +ATORVASTATIN 80 MG TAB PO STA; +ATROPINE SULFATE 0.1 MG/ML 10ML SYRINGE IV PRN; +BUMETANIDE 1 MG TAB PO SCH; +CLOPIDOGREL 75 MG TAB PO SCH; +DAPAGLIFLOZIN PROPANEDIOL 5 MG TABLET PO SCH; +GLIMEPIRIDE 4 MG TAB PO SCH; +HEPARIN SODIUM,PORCINE (1 ML) 2,500 UNIT in SODIUM CHLORIDE 0.9% 250 ML IRRIGATION PRN; +HEPARIN SODIUM,PORCINE 10,000 UNIT in SODIUM CHLORIDE 0.9% 1,000 ML IRRIGATION PRN; +IRON 28 MG PO SCH; +ISOSORBIDE MONONITRATE ER 30 MG TAB.ER.24H PO SCH; +MAG HYDROX/AL HYDROX/SIMETH 30 ML CUP PO PRN; +METOPROLOL SUCCINATE (ER) 25 MG TAB.ER.24H PO SCH; +QUEtiapine 50 MG TAB PO SCH; +RX INFO: IV CONTRAST WAS GIVEN 1 EACH MISC MISCELLANE PRN; +SODIUM CHLORIDE 0.9% 1,000 ML in EMPTY BAG 1 BAG IV SCH; +ZOLPIDEM 5 MG TAB PO PRN; +hydrALAZINE HCL 25 MG TAB PO SCH
[2024-09-03] MEDS: IV FLUID CONTINUATION 1,000 ML IV ONE (09:03)
[2024-09-03 09:38] LABS: Glucose,Whole Blood 267 mg/dL (70-110)
[2024-09-03 09:46] VITALS: TEMP 99.5
[2024-09-03 10:00] LABS: Anisocytosis Slight; Basophils # (A) 0.1 k/uL (0-0.2); Basophils % (A) 1 %; Eosinophils # (A) 0.3 k/uL (0-0.7); Eosinophils % (A) 4 %; HCT 37.6 % (34.0-46.0); HGB 11.7 gm/dL (11.4-16.0); Hypochromasia Marked; Lymphocytes # (A) 1.1 k/uL (1.0-4.8); Lymphocytes % (A) 12 %; MCH 23.9 pg (25.0-35.0); MCV 77.2 fL (80.0-100.0); Mean Platelet Volume 7.7; Microcytosis Slight; Monocytes # (A) 0.5 k/uL (0-1.0); Monocytes % (A) 5 %; Neutrophils # (A) 6.9 k/uL (1.3-7.7); Neutrophils % (A) 77 %; Platelet Count 311 k/uL (150-450); RBC 4.87 m/uL (3.80-5.40)
[2024-09-03 10:12] LABS: African American GFR (CKD) 23 (>60 ml/min/1.73 sqM); Anion Gap 11 mmol/L; Blood Urea Nitrogen 33 mg/dL (7-17); Calcium 9.3 mg/dL (8.4-10.2); Carbon Dioxide 25 mmol/L (22-30); Chloride 100 mmol/L (98-107); Glucose 250 mg/dL (74-99); Non-African American GFR(CKD) 20 (>60 ml/min/1.73 sqM); Sodium 136 mmol/L (137-145)
[2024-09-03] MEDS: INSULIN ASPART (NovoLOG) 100 UNIT/ML VIAL SQ ONE (10:21)
[2024-09-03] MEDS: fentaNYL (PF) 50 MCG/ML 2 ML AMP IVP ONE (11:28)
[2024-09-03] MEDS: MIDAZOLAM 2 MG/2 ML VIAL IVP ONE (11:28)
[2024-09-03] MEDS: LIDOCAINE 1% INJ 10MG/ML (20 ML MDV) SQ ONE (11:38)
[2024-09-03] MEDS: VERAPAMIL SYRINGE (5 MG/10 ML) INTRAARTER ONE (11:38)
[2024-09-03] MEDS: CLOPIDOGREL 75 MG TAB PO ONE (11:39)
[2024-09-03] MEDS: HEPARIN SODIUM 1,000 UN/ML (10ML VL) IV ONE ×2 (11:40→12:21)
[2024-09-03] MEDS: IOPAMIDOL-370 100ML BTL INJ ONE (12:23)
--- NOTE | 2024-09-03 15:20 | P.PRCINT ---
Percutaneous Coronary Int. - Percutaneous Coronary Intervention Percutaneous Coronary Intervention: PROCEDURES PERFORMED: Right coronary angiography, ultrasound guided arterial access, PCI mid to distal RCA with overlapping 3.5 x 33mm and 3.5 x 48mm Xience ISMA post dilated with a 3.5mm NC balloon, IVUS RCA INDICATION: Ischemic cardioymopathy, NYHA class 4 symptoms CONSENT:I have discussed the risks, benefits and alternative therapies for the above-mentioned procedure and for both sedation/analgesia as well as necessary blood product administration, if indicated, as they pertain to this patient. The patient has indicated understanding and acceptance of the risks and procedures discussed. PROCEDURE: After the risks, benefits and alternatives of the above mentioned procedure explained in detail with the patient, informed consent was obtained. Patient was taken to the catheterization lab and prepped and draped in usual fashion. Ultrasound guidance was used to assess for arterial access. 1% lidocaine was used to anesthetize the right radial artery. A 6-[place] sheath was placed in the right radial artery using modified Seldinger technique and ultrasound guidance. The decision was made to perform PCI of the RCA. Limited images were obtained to preserve any contrast. Heparin was given. A 6-[place] 0.75 guide was used to engage the RCA. A 0.014 BMW wire was advanced to the distal RCA. Predilation was performed with a 2.5 mm balloon. Intravascular ultrasound showed reference vessel proximately 3.5 with diffuse disease throughout the entire mid to distal RCA with only small segment of normal segment. Therefore decision made to treat the entire mid to distal RCA. Reference vessel was approximately 3.5 mm. Using a 3.5 mm noncompliant balloon, predilation was performed. Next overlapping 3.5 x 48 mm distally and 3.5 x 33 mm drug-eluting stents were placed. These stents were postdilated with 3.5 mm noncompliant balloons. Final angiograms were performed. Repeat intravascular ultrasound showed well expanded stent with no dissection. Preintervention there was 70% stenosis and RAISA-3 flow postintervention there was less than 10% stenosis and RAISA-3 flow. The right radial sheath was removed and a TR band was placed with hemostasis achieved. The patient tolerated the procedure well. Patient was transported back to the post catheterization holding area in stable condition. Conscious Sedation: Patient was monitored under the direct supervision of myself for conscious sedation using Versed and fentanyl for a total duration of 42 minutes HEMODYNAMICS: Ao: 138/89 SELECTIVE CORONARY ARTERIOGRAPHY: LEFT MAIN: Not imaged. LEFT ANTERIOR DESCENDING CORONARY ARTERY: Not imaged. LEFT CIRCUMFLEX CORONARY ARTERY: Not imaged. RIGHT CORONARY ARTERY: The right coronary artery is a large caliber vessel which gives off a PDA and PLV branch and is the dominant vessel. There is mild proximal 30-40% stenosis, a mid to distal 60-70% stenosis followed by distal RCA 60% stenosis. FINAL IMPRESSION: 1. CAD as described above including 70% RCA stenosis 2. S/p PCI mid to distal RCA with overlapping 3.5 x 33mm and 3.5 x 48mm Xience ISMA post dilated with a 3.5mm NC balloon PLAN: 1. Aggressive risk factor modification per most recent ACC/AHA guidelines. 2. Continue dual antiplatelets with aspirin and Plavix for 6 months
[2024-09-03 15:50] VITALS: RESP 16
[2024-09-03 16:37] VITALS: BP 115/60; PULSE 75
== END ==
LOC: CATHCVL 08:54
PROVIDERS: ATTEND Internal Medicine
DX: I25.10 Atherosclerotic heart disease of native coronary artery without angina pectoris (principal); I25.5 Ischemic cardiomyopathy; E11.22 Type 2 diabetes mellitus with diabetic chronic kidney disease; I13.0 Hypertensive heart and chronic kidney disease with heart failure and stage 1 through stage 4 chronic kidney disease, or unspecified chronic kidney disease; N18.9 Chronic kidney disease, unspecified; I50.22 Chronic systolic (congestive) heart failure; E11.319 Type 2 diabetes mellitus with unspecified diabetic retinopathy without macular edema; E78.2 Mixed hyperlipidemia; E66.9 Obesity, unspecified; Z68.41 Body mass index [BMI] 40.0-44.9, adult; F17.210 Nicotine dependence, cigarettes, uncomplicated; Z79.84 Long term (current) use of oral hypoglycemic drugs; Z79.899 Other long term (current) drug therapy; Z82.49 Family history of ischemic heart disease and other diseases of the circulatory system
CPT/HCPCS: 92978; 80048; 85025; C9600; C1769 ×2; C1894; C1887 ×2; C1753; C1874 ×2; C1725 ×2; J2250; J2003; J3010; J1644; Q9967